=== PATIENT | male | born 1970 | race Caucasian/White ===

== ENCOUNTER 2016-12-23 17:27 | Inpatient (IN) | payer OTHER ==
[~2016-12-23] VITALS: Ht 172.7 cm; Wt 83.9 kg
--- NOTE | 2016-12-23 17:46 | NUR ---
PER MOM PT SEVERE ABD PAIN X 1 HR, PALE WHICH IS NOT NORMAL, SOME NAUSEA.
--- NOTE | 2016-12-23 17:53 | ED GI/GU/ABDOMINAL COMPLAINT ---
History of Present Illness General Chief Complaint: Abdominal Pain/Flank Pain Stated Complaint: ABD PAIN, X 1 HR Source: patient, family Exam Limitations: no limitations Vital Signs & Intake/Output Vital Signs & Intake/Output Vital Signs Date Time Temp Pulse Resp B/P Pulse O2 O2 Flow FiO2 Ox Delivery Rate 12/26 799 95 Nasal 2.0L Cannula 12/26 799 98.3 108 22 122/70 95 Nasal 2.0L Cannula 12/25 0442 94 Nasal 2.0L Cannula 12/25 000 95 Nasal 2.0L Cannula 12/25 000 97.0 112 22 114/75 95 Nasal 2.0L Cannula 12/24 2000 94 Nasal 2.0L Cannula 12/24 1600 95 Nasal 2.0L Cannula 12/24 1600 98.4 107 19 110/56 91 Room Air Room Air ED Intake and Output 12/25 0000 12/24 1200 Intake Total 2035 5500 Output Total 2945 3070 Balance -910 2430 Intake, IV 2035 5500 Output, 90 90 Drainage Output, 90 30 Gastric Drainage Output, Urine 2765 2950 Patient 185 lb Weight Allergies Coded Allergies: No Known Allergies (12/23/16) Reconcile Medications Valsartan/Hydrochlorothiazide (Valsartan-Hctz 160-25 MG Tab) 160 MG-25 MG TABLET 1 TAB PO DAILY HEART (Reported) Triage Note: PER MOM PT SEVERE ABD PAIN X 1 HR, PALE WHICH IS NOT NORMAL, SOME NAUSEA. Triage Nurses Notes Reviewed? 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 According to the patient he had just gone out for lunch with his . For the past 5 days he's been having some lower abdominal pain and pressure. He felt he was constipated and has been taking a lot of fibrotic home. No fever or chills. Has a nausea but no vomiting. No history of similar symptoms. According to the he was very pale when the event happened at home. No chest pain or shortness of breath. Past History Travel History Traveled to [place] past 21 day No Medical History Any Pertinent Medical History? see below for history Neurological: NONE EENT: NONE Cardiovascular: hypertension Respiratory: NONE Gastrointestinal: NONE Hepatic: NONE Renal: NONE Musculoskeletal: NONE Psychiatric: NONE Endocrine: NONE Tetanus Vaccine: Surgical History Surgical History: none Psychosocial History What is your primary language Senegalese Tobacco Use: Never used Family History Hx Contributory? No Review of Systems Review of Systems Constitutional: Reports: diaphoresis. Denies: chills, fever. EENTM: Reports: no symptoms. Respiratory: Denies: cough, short of breath. Cardiovascular: Denies: chest pain. GI: Reports: abdominal pain. Denies: nausea, vomiting. Genitourinary: Reports: no symptoms. Musculoskeletal: Reports: no symptoms. Skin: Reports: no symptoms. Neurological/Psychological: Reports: anxiety. Hematologic/Endocrine: Denies: bruising, bleeding, polyuria, polydipsia. Immunologic/Allergic: Denies: splenectomy. All Other Systems: Reviewed and Negative Physical Exam Physical Exam General Appearance: well developed/nourished, alert, awake, severe distress Head: atraumatic, normal appearance Eyes: Bilateral: PERRL, EOMI. 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 No Severe Sepsis Present: No Septic Shock Present: No Progress Differential Diagnosis: diverticulitis, pyelonephritis, SBO, AAA Plan of Care: Orders Procedure Date/time Status ICU LAB BUNDLE 12/26 0500 Active CBC WITHOUT DIFFERENTIAL 12/26 0500 Active OXYGEN SETUP (GEN) 12/25 UNK Complete Admit to inpatient 12/25 UNK Active OXYGEN SETUP CHG 12/24 UNK Complete OXYGEN 12/24 UNK Complete OXYGEN TRANSPORT 12/24 UNK Complete Current Medications Sig/Nhan Start time Last Medication Dose Stop Time Status Admin Morphine Sulfate 2 MG Q3P PRN 12/24 0645 AC (Morphine) Ondansetron HCl 4 MG Q6P PRN 12/24 0200 AC (Zofran) Laboratory Tests 12/25/16 0400: Anion Gap 9, Estimated GFR > 60, Glucose 151 H, Calcium 8.6, Phosphorus 2.0 L, Magnesium 2.1, Total Bilirubin 0.6, AST 28, ALT 37, Albumin 2.8 L, CBC w Diff MAN DIFF ORDERED, RBC 3.07 L, MCV 98.3 H, MCH 34.1 H, RDW 13.1, MPV 7.8, Gran % 85.7 H, Lymphocytes % 9.2 L, Monocytes % 4.9, Eosinophils % 0, Basophils % 0.2, Absolute Granulocytes 3.8, Segmented Neutrophils 63, Band Neutrophils 20 H , Absolute Lymphocytes 0.4 L, Lymphocytes 9 L, Monocytes 4, Absolute Monocytes 0.2, Absolute Eosinophils 0, Absolute Basophils 0, Metamyelocytes 4 H, Platelet Estimate ADEQUATE, Hypochromic-Microcytic 1+, Basophilic Stippling 1+, PUBS MCHC 34.7 PATIENT PRESENTS WITH ACUTE ABDOMEN. IV ACCESS, PAIN CONTROL, FLUIDS. CT CALLED FOR EMERGENT SCAN. PREOP LABS SENT. 6:33 PM NO RELIEF WITH MORPINE, DILAUDID ORDERED. BACK FROM CT RESULTS PENDING. PERFORATED SIGMOID DIVERTICULITIS ON CT. IV UNASYN ORDERED. SURGERY PAGED. 6:44 PM D/W SURGICAL PA COMFORT. DR HOFFMAN PAGED. PATIENT TO GO TO OR. (PANDA SAMPSON,KARLO) Diagnostic Imaging: Viewed by Me: CT Scan. Discussed w/RAD: CT Scan. Initial ED EKG: NSR Rhythm Strip: normal sinus rhythm Comments: PATIENT: DONNELL ROSEN PRESENT AGE: 46 PATIENT ACCOUNT NO: [id number] : 66 LOCATION: [facility] ORDERING PHYSICIAN: KARLO STONE MD SERVICE DATE: 12/23/16 EXAM TYPE: CAT - CT ABD & PELVIS W IV CONTRAST EXAMINATION: CT ABDOMEN AND PELVIS WITH CONTRAST CLINICAL INFORMATION: Sudden onset severe abdominal pain. Assess for perforation. COMPARISON: None. TECHNIQUE: Multidetector volumetric imaging was performed of the abdomen and pelvis before and after the IV administration of 94 mL of Optiray 320 intravenous contrast. Sagittal and coronal reformatted images were obtained on the technologist's workstation. DLP: 417 mGy-cm. FINDINGS: LUNG BASES: The visualized lung bases are unremarkable. LIVER, GALLBLADDER, AND BILIARY TREE: The liver is normal in size, shape, and attenuation. No focal hepatic lesion or biliary ductal dilatation is present. The gallbladder is unremarkable with no evidence of radiopaque gallstones, gallbladder wall thickening, or obvious pericholecystic inflammatory changes. PANCREAS: Unremarkable. SPLEEN: Unremarkable. ADRENAL GLANDS: Unremarkable. KIDNEYS AND URETERS: The kidneys are normal in size, shape, and attenuation. No hydronephrosis, hydroureter, or calculi seen. No perinephric stranding. BLADDER: Unremarkable. GASTROINTESTINAL TRACT: There is a moderate length segment of mural thickening centered on the sigmoid colon. There is extraluminal gas within the mesentery of the sigmoid colon with small volume of fluid. No discrete/drainable fluid collection. The gas is favored to arise from a perforated diverticulum of the sigmoid colon. No other areas of acute large or small bowel inflammation. There is fibrofatty proliferation within the cecum and ascending colon, suggesting prior inflammation. The appendix is unremarkable. ABDOMINAL WALL: Tiny fat-containing umbilical hernia. LYMPH NODES: Nonspecific subcentimeter retroperitoneal and intraperitoneal lymph nodes without bulky adenopathy. VASCULAR: Circumaortic left renal vein. Scattered atherosclerotic disease including coronary artery calcification. PELVIC VISCERA: Unremarkable. OSSEOUS STRUCTURES: No acute osseous abnormalities. Degenerative disc disease at L5-S1. There is a tiny lipoma along the inferior right latissimus musculature. IMPRESSION: 1. Evidence of sigmoid colon perforation with a moderate length segment of thick-walled, inflamed bowel. Local diverticula are demonstrated, and a perforated diverticulitis is considered most likely. No discrete/drainable fluid collection. 2. Scattered atherosclerotic disease including coronary artery calcification. This critical result was discussed with Dr. Stone at 6:35 PM on 12/23/2016 and it was ascertained that the content and urgency of the report was understood at the time of direct communication. DICTATED BY: ZANE GAMING MD DATE/TIME DICTATED:12/23/161830 ACCOUNTS RECEIVABLE COORDINATOR:NEIL DATE/TIME TRANSCRIBED:12/23/161830 CONFIDENTIAL, DO NOT COPY WITHOUT APPROPRIATE AUTHORIZATION. <Electronically signed in Other Vendor System> SIGNED BY: ZANE GAMING MD 12/23/16 1850 Departure Departure Time of Disposition: 1929 Disposition: STILL A PATIENT Condition: Guarded Clinical Impression Primary Impression: Perforation of sigmoid colon due to diverticulitis Secondary Impressions: MACKENZIE (acute kidney injury), Hyponatremia Referrals: MARZENA SAMPSON,ORALIA Kee (PCP/Family) Departure Forms: Customer Survey General Discharge Information OR/GI Note Spoke With: DALTON SAMPSON,CLAY N. ED Treatment Decision: DONNELL ROSEN requires urgent operative management or an emergent procedure that cannot be performed in the Emergency Room setting. Transport To: [facility] Critical Care Note Critical Care Note Critical Care Time: 30-74 min
--- NOTE | 2016-12-23 18:01 | NUR ---
PT TAKEN TO ROOM 4. PALE, HANDS COLD TO TOUCH. PT WRITHING, C/O DIFFUSE ABDOMINAL PAIN, GUARDS RLQ. PT DOESN'T ALLOW PALPATION TO ABDOMEN DUE TO PAIN. STATES HE HAS HAD ABDOMINAL "CRAMPING" FOR A FEW DAYS, WENT TO EAT LUNCH TODAY AND HAD SUDDEN ONSET OF PAIN AFTER EATING A CHICKEN SANDWICH. HAS FELT CONSTIPATED THROUGHOUT THE WEEK AND HAS BEEN TAKING FIBER PER . PT REPORTS NORMAL BM TODAY AND NORMAL URINARY PATTERN TODAY. DENIES HEMATURIA. +NAUSEA. IV EST BY RANDY ANDERSON. NORMAL SALINE INFUSING. MED WITH ZOFRAN AND MORPHINE PER DEC. DR MOSQUEDA AT THE BEDSIDE.
[2016-12-23 18:06] LABS: ABSOLUTE BASOPHIL COUNT 0 /CUMM (0.0-0.2); ABSOLUTE EOSINOPHIL COUNT 0.1 /CUMM (0.0-0.7); ABSOLUTE GRANULOCYTE CT 7.5 /CUMM (1.4-6.5); ABSOLUTE LYMPH COUNT 2.4 /CUMM (1.2-3.4); BASOPHIL % 0.4 % (0.0-2.0); EOSINOPHIL % 1.3 % (0-5); GRANULOCYTE % 67.8 % (42.2-75.2); MEAN CORPUSCULAR HGB 33.7 PG (27.0-31.0); MEAN CORPUSCULAR HGB CONC 34.6 G/DL (33.0-37.0); MEAN CORPUSCULAR VOLUME 97.4 FL (80.0-94.0); MEAN PLATELET VOLUME 7.8 FL (7.4-10.4); PLATELET COUNT 271 /CUMM (130-400); RBC DISTRIBUTION WIDTH 12.9 % (11.5-14.5); WHITE BLOOD CELL COUNT 11.1 /CUMM (4.8-10.8)
--- NOTE | 2016-12-23 18:10 | NUR ---
TAKEN TO CT SCAN VIA STRETCHER
[2016-12-23 18:16] LABS: PT 11.1 SEC (9.4-12.5); PTT 30 SEC (25-37)
--- NOTE | 2016-12-23 18:34 | NUR ---
PT STILL C/O 10/10 LOWER ABD PAIN. STATES PAIN IS SHARP IN NATURE. MEDICATED WITH 1MG IV DILAUDID PER ORDER AT THIS TIME. PT MOVING AROUND ON STRETCHER, APPEARS UNCOMFORTABLE.
--- NOTE | 2016-12-23 18:50 | CT SCAN REPORT ---
EXAMINATION: CT ABDOMEN AND PELVIS WITH CONTRAST CLINICAL INFORMATION: Sudden onset severe abdominal pain. Assess for perforation. COMPARISON: None. TECHNIQUE: Multidetector volumetric imaging was performed of the abdomen and pelvis before and after the IV administration of 94 mL of Optiray 320 intravenous contrast. Sagittal and coronal reformatted images were obtained on the technologist's workstation. DLP: 417 mGy-cm. FINDINGS: LUNG BASES: The visualized lung bases are unremarkable. LIVER, GALLBLADDER, AND BILIARY TREE: The liver is normal in size, shape, and attenuation. No focal hepatic lesion or biliary ductal dilatation is present. The gallbladder is unremarkable with no evidence of radiopaque gallstones, gallbladder wall thickening, or obvious pericholecystic inflammatory changes. PANCREAS: Unremarkable. SPLEEN: Unremarkable. ADRENAL GLANDS: Unremarkable. KIDNEYS AND URETERS: The kidneys are normal in size, shape, and attenuation. No hydronephrosis, hydroureter, or calculi seen. No perinephric stranding. BLADDER: Unremarkable. GASTROINTESTINAL TRACT: There is a moderate length segment of mural thickening centered on the sigmoid colon. There is extraluminal gas within the mesentery of the sigmoid colon with small volume of fluid. No discrete/drainable fluid collection. The gas is favored to arise from a perforated diverticulum of the sigmoid colon. No other areas of acute large or small bowel inflammation. There is fibrofatty proliferation within the cecum and ascending colon, suggesting prior inflammation. The appendix is unremarkable. ABDOMINAL WALL: Tiny fat-containing umbilical hernia. LYMPH NODES: Nonspecific subcentimeter retroperitoneal and intraperitoneal lymph nodes without bulky adenopathy. VASCULAR: Circumaortic left renal vein. Scattered atherosclerotic disease including coronary artery calcification. PELVIC VISCERA: Unremarkable. OSSEOUS STRUCTURES: No acute osseous abnormalities. Degenerative disc disease at L5-S1. There is a tiny lipoma along the inferior right latissimus musculature. IMPRESSION: 1. Evidence of sigmoid colon perforation with a moderate length segment of thick-walled, inflamed bowel. Local diverticula are demonstrated, and a perforated diverticulitis is considered most likely. No discrete/drainable fluid collection. 2. Scattered atherosclerotic disease including coronary artery calcification. This critical result was discussed with Dr. Stone at 6:35 PM on 12/23/2016 and it was ascertained that the content and urgency of the report was understood at the time of direct communication.
--- NOTE | 2016-12-23 18:52 | NUR ---
SURGERY AT BEDSIDE
--- NOTE | 2016-12-23 18:52 | NUR ---
SECOND IV PLACED. SECOND LITER NS INFUSING PER ORDER AT THIS TIME. IV UNASYN INFUSING AT THIS TIME.
[2016-12-23] MEDS ORDERED: VALSARTAN-HCTZ1 EAC2 PO (19:04)
--- NOTE | 2016-12-23 19:07 | NUR ---
PT PERFORMED PRE-OP SCRUB.
--- NOTE | 2016-12-23 19:23 | NUR ---
PT AWAITING OR AT THIS TIME.
--- NOTE | 2016-12-23 19:58 | History & Physical Pre-Op ---
See Addendum General Information and HPI History of Present Illness: CC: abdominal pain HPI:46-year-old otherwise healthy nondiabetic smoker, marijuana medications for blood pressure no family history of intestinal problems or cancer, in retrospect has had to push to have bowel movements intermittently since at least the summer , and recently started taking prunes especially for the past week or so he still went to work which requires heavy lifting felt a tiny bit better this morning when out to lunch came home had a large bowel movement and then severe constant lower abdominal pain unrelenting doesn't radiate to the back difficult to take a deep breath or move otherwise can't stand up straight no nausea no vomiting no fever no sweats otherwise no changes in weight or appetite axes gained a little bit of weight. No history of colonoscopy. I've reviewed the [facility]. No history of GERD, PUD, bleeding problems, heart disease or issues with anesthesia. Allergies/Medications Allergies: Coded Allergies: No Known Allergies (12/23/16) Home Med list Valsartan/Hydrochlorothiazide (Valsartan-Hctz 160-25 MG Tab) 160 MG-25 MG TABLET 1 TAB PO DAILY HEART (Reported) Past History Medical History Neurological: NONE EENT: NONE Cardiovascular: hypertension Respiratory: NONE Gastrointestinal: NONE Hepatic: NONE Renal: NONE Musculoskeletal: NONE Psychiatric: NONE Endocrine: NONE Tetanus Vaccine: Surgical History Pertinent Surgical History: none Review of Systems Review of Systems: Constitutional: No fever, sweats or weight loss ENMT: No sore throat Cardiovascular: No chest pain, palpitations or leg swelling Respiratory: No shortness of breath, cough, or sputum or dyspnea on exertion GI: No GERD or bleeding per rectum : No dysuria or hematuria Musculoskeletal: No new muscle weakness, bone or joint pain Skin / Breast: No jaundice, rashes or itching Psychiatric: No history of drug or alcohol abuse no depression or anxiety Hematologic / lymphatic system: No problems with excessive bleeding, bruising, or blood clots Exam & Diagnostic Data Last 24 Hrs of Vital Signs/I&O I reviewed Vital Signs Date Time Temp Pulse Resp B/P Pulse O2 O2 Flow FiO2 Ox Delivery Rate 12/23 1918 97.1 92 22 112/62 97 Room Air 12/23 1830 85 20 110/64 95 Room Air 12/23 1810 74 107/72 12/23 1804 98 Room Air 12/23 1750 113 28 108/68 96 Physical Exam: Constitutional: pleasant, no acute distress, conversant Eyes: sclera anicteric ENMT: ears and nose atraumatic, moist mucous membranes, good dentition, no lip lesions Neck: Supple, trachea is midline, no cervical or supraclavicular adenopathy and no palpable thyromegaly Cardiovascular: S1, S2, no murmurs, no peripheral edema Respiratory: clear to auscultation with normal respiratory effort and no intercostal retractions GI: abdomen abdomen is rigid with rebound, nondistended, because of the discomfort cannot really appreciate hepatosplenomegaly, small umbilical hernia. Extremities / lymphatics: symmetrically warm, free range of motion no peripheral edema, no cervical, supraclavicular, axillary, or inguinal adenopathy Musculoskeletal: Normal gait and station, no digital cyanosis, good muscle strength and tone no atrophy, motor grossly 5 out of 5 throughout Skin: no jaundice, no rashes warm, nondiaphoretic, no areas of erythema or induration Psychiatric: mood and affect are appropriate and alert and oriented to person place and time Last 24 Hrs of Labs/Dimitri: Laboratory Tests 12/23/16 1758: Anion Gap 16, Estimated GFR 29 L, BUN/Creatinine Ratio 22.5, Glucose 165 H, Calcium 9.3, Total Bilirubin 0.9, AST 88 H, ALT 66, Alkaline Phosphatase 99, Total Protein 7.4, Albumin 4.2, Globulin 3.2, Albumin/Globulin Ratio 1.3, Amylase 70, Lipase 207, PT 11.1, INR 1.06, APTT 30, CBC w Diff NO MAN DIFF REQ, RBC 3.80 L, MCV 97.4 H, MCH 33.7 H, RDW 12.9, MPV 7.8, Gran % 67.8, Lymphocytes % 21.7, Monocytes % 8.8, Eosinophils % 1.3, Basophils % 0.4, Absolute Granulocytes 7.5 H, Absolute Lymphocytes 2.4, Absolute Monocytes 1.0 H, Absolute Eosinophils 0.1, Absolute Basophils 0, PUBS MCHC 34.6 Assessment/Plan Assessment/Plan: Studies I reviewed today's CT on PACS myself and looks like there is extraluminal stool under the curve of the sigmoid colon Impression acute abdomen fecal peritonitis patient needs emergency surgery Rodrigues's, abdominal washout, discussed temporary end colostomy discussed potential life-threatening sepsis peritonitis multiorgan failure but it's fortunate that he is young and otherwise relatively healthy and came as soon as the severe pain started though it appears that diverticulitis has been smoldering for about a week. Risks include bleeding infection injury to surrounding structures such as bowel and blood vessels and ureter, but also shows that his dehydrated on his lab work on his way to the OR he is getting IV antibiotics and some IV fluid crystalloid boluses. As Ranked By This Provider Problem List: 1. Acute abdomen 2. Fecal peritonitis 3. Perforation of sigmoid colon due to diverticulitis
--- NOTE | 2016-12-24 04:51 | NUR ---
PT RECEIVED FROM OR A/O X3 MORALES TO COMMAND NASAL O2 WEANED OFF. ABD DRSG WITH SMALL AMT DRAINAGE COLOSTOMY WITH SMALL AMT SS DRAINAGE, ALIA WITH MOD AMT SS DRAINAGE. mEDICATED WITH DILAUDID ORDERED W/O RELIEF OF PAIN MS GIVEN WITH ADEQATE RELIEF. NGT TO LWS DRAINING SMALL AMT YELLOW FLUID, MENDOZA DRAINING QS. AT BEDSIDE DEMONSTRATES USE OF NRSG CALL LIGHT.
[2016-12-24 06:31] LABS: ABSOLUTE BASOPHIL COUNT 0 /CUMM (0.0-0.2); ABSOLUTE EOSINOPHIL COUNT 0 /CUMM (0.0-0.7); ABSOLUTE GRANULOCYTE CT 3.7 /CUMM (1.4-6.5); ABSOLUTE LYMPH COUNT 0.2 /CUMM (1.2-3.4); ABSOLUTE MONOCYTE COUNT 0.3 /CUMM (0.10-0.60); BASOPHIL % 0 % (0.0-2.0); EOSINOPHIL % 0 % (0-5); GRANULOCYTE % 88.1 % (42.2-75.2); MEAN CORPUSCULAR HGB CONC 34.9 G/DL (33.0-37.0); MEAN CORPUSCULAR VOLUME 97.4 FL (80.0-94.0); MEAN PLATELET VOLUME 8.1 FL (7.4-10.4); PLATELET COUNT 164 /CUMM (130-400); RED BLOOD CELL CT 3.28 /CUMM (4.70-6.10)
--- NOTE | 2016-12-24 06:42 | PN- General Surgery ---
See Addendum Subjective Subjective: Post op check Awake, alert Complaining of surgical pain - intolerable at present No nausea, no other complaints Objective Vital Signs and I&Os Vital Signs Date Time Temp Pulse Resp B/P Pulse O2 O2 Flow FiO2 Ox Delivery Rate 12/24 0342 97 Nasal 2.0L Cannula 12/23 1918 97.1 92 22 112/62 97 Room Air 12/23 1830 85 20 110/64 95 Room Air 12/23 1810 74 107/72 12/23 1804 98 Room Air 12/23 1750 113 28 108/68 96 Intake & Output 12/24 0800 12/24 0000 12/23 1600 12/23 0800 12/23 0000 12/22 1600 Intake Total 1000 Output Total Balance 1000 Intake, IV 1000 Patient 185 lb 185 lb Weight Physical Exam: bp stable systolic 90's, HR 105 - sinus, Tmax post op 99 RR 20, sats good General: alert and oriented times three Chest: clear anteriorly bilaterally, RRR Abd: soft, nondistended, no bowel sounds appreciated Ostomy: pink, looks good, no air or liquid in bag Ext: warm, no edema Wound: dressed, dry ALIA: 90cc serosang since OR Urine output good NGT:30cc Current Medications: Current Medications Sig/Nhan Start time Last Medication Dose Route Stop Time Status Admin Ampicillin Sodium/ 3,000 MG Q6H 12/24 0530 12/24 Sulbactam Sodium IV 0525 Sodium Chloride 100 ML Ampicillin Sodium/ 3,000 MG Q6H 12/24 020 DC Sulbactam Sodium IV Sodium Chloride 100 ML Ampicillin Sodium/ 0 .STK-MED ONE 12/23 184 DC Sulbactam Sodium .ROUTE Ampicillin Sodium/ 3,000 MG ONCE ONE 12/23 1845 DC 12/23 Sulbactam Sodium IV 12/23 1914 1851 Sodium Chloride 100 ML Dextrose/Sodium 1,000 ML Q8H 12/24 0200 12/24 Chloride IV 0527 Heparin Sodium 5,000 UNIT Q8 12/24 0151 12/24 (Porcine) SC 0620 Hydromorphone HCl 2 MG ONCE PRN 12/24 0200 12/24 IV 0140 Hydromorphone HCl 0 .STK-MED ONE 12/23 183 DC .ROUTE Hydromorphone HCl 1 MG ONCE ONE 12/23 1830 DC 12/23 IV 12/23 1831 1834 Influenza Virus 0.5 ML ONCE ONE 12/24 0415 DC Vaccine IM 12/24 0416 Morphine Sulfate 2 MG Q4P PRN 12/24 0200 AC IV Morphine Sulfate 4 MG Q4 HRS NEEDED PRN 12/24 0200 AC 12/24 IV 0314 Morphine Sulfate 6 MG ONCE ONE 12/23 1800 DC 12/23 IV 12/23 1801 1800 Morphine Sulfate 0 .STK-MED ONE 12/23 1758 DC .ROUTE Ondansetron HCl 4 MG Q6P PRN 12/24 0200 AC IV Ondansetron HCl 4 MG ONCE ONE 12/23 1800 DC 12/23 IV 12/23 1801 1800 Ondansetron HCl 0 .STK-MED ONE 12/23 1755 DC .ROUTE Pantoprazole Sodium 40 MG DAILY 12/24 1000 AC IV Petrolatum 1 UNIT TID 12/24 0200 AC OPH Sodium Chloride 1,000 ML BOLUS ONE 12/23 1845 DC 12/23 IV 12/23 1944 1851 Sodium Chloride 1,000 ML BOLUS ONE 12/23 1800 DC 12/23 IV 12/23 1859 1800 Assessment/Plan Assessment/Plan 46 yo male s/p Hartmanns for perf diverticulitis NPO/IVF fu labs Pain management - change morphine scale to q3h at this time then reassess later await bowel function unasyn for peritonitis hep sc for dvt ppx Core Measures/Miscellaneous Hol[place] Catheter Date In: 12/24/16 Still Needed? Yes (strict O/O) Venous Thromboembolism VTE Risk Factors: No Risk Factors VTE Contraindications: No Contraindications VTE Diagnosis: No Beta Jennifer Is Beta Jennifer a Home Med? No Antibiotics Is Patient on Antibiotics? Yes If Yes: infection
[2016-12-24 06:46] LABS: HEMATOCRIT 31.9 % (42-52); WHITE BLOOD CELL COUNT 4.2 /CUMM (4.8-10.8)
[2016-12-24 08:00] VITALS: BP 108/64
--- NOTE | 2016-12-24 08:00 | NUR ---
REC'D THE PT SLEEPING IN BED, EASILY AROUSABLE. C/O INTERMITTENT PAIN TO THE L SIDE OF THE ABD(REC'D MORPHINE 4MG IV AT 0630, WHICH PROVIDED RELIEF) PER THE PT THE PAIN IS INTERMITTENT-WHEN HE DOES HAVE IT, IT IS 10/10, ALMOST CRAMPLIKE. A&OX3, MORALES ALBEIT GINGERLY R/T PAIN. PT IS IN A ST WITHOUT ECTOPY PER THE BLADE WORKER. NO EDEMA NOTED. DERICK BS ARE CLEAR WITH AN O2 SAT OF 9#5 WHEN SLEEPING AND 95% WHEN AWAKE ON ROOM AIR. ABD IS DISTENDED BUT SOFT-NO BOWEL SOUNDS PRESENT. NGT IN L NARE TO LWS. DRAINING SMALL AMOUNTS OF LOPEZ ALMOST PURULENT LOOKING FLUID. MIDLINE ABD DRESSING WITH OLD DRIED BLOODY DRAINAGE-HAS NOT GONE THRU THE TOP LAYER OF THE DRESSING. LSIDED COLOSTOMY-STOMA IS PINK AND THERE IS SCANT SEROSANGUINOUS DRAINAGE. R SIDED ALIA WITH SEROSANGUINOUS FLUID. MENDOZA IN PLACE DRAINING LG AMOUNTS OF CLEAR YELLOW URINE. RECEIVING D5NS AT 125ML/HR VIA A #20 TO THE LAC.
--- NOTE | 2016-12-24 14:48 | NUR ---
PT PROVIDED WITH INCENTIVE SPIROMETER AND INSTRUCTED ON PROPER USE. PT DEMONSTRATED CAN USE APPROPRIATELY. INSTRUCTED TO USE 10X/HR.
[2016-12-24 16:00] VITALS: BP 110/56
--- NOTE | 2016-12-24 16:30 | NUR ---
DESPITE ENCOURAGING THE PT TO USE THE INCENTIVE SPIROMETER WELL TAKING DEEP BREATHS THE O2 SAT HAD DECREASED TO 89% WHILE THE PT WAS SLEEPING AND ONLY 91-92% WHILE AWAKE. 2LNC PLACED ON THE PT AT 1605 AND THE O2 SAT IS CURRENTLY 95-96%. WILL CONTINUE TO MONITOR.
--- NOTE | 2016-12-24 17:12 | NUR ---
PT'S O2 SAT HAS INCREASED TO 94-97% ON THE 2LNC.
--- NOTE | 2016-12-24 20:42 | Admission Core Measures ---
Admission Lab Results I reviewed the following labs: Laboratory Tests 12/24 12/24 0600 0500 Chemistry Sodium (137 - 145 mmol/L) 133 L Potassium (3.5 - 5.1 mmol/L) 4.0 Chloride (98 - 107 mmol/L) 100 Carbon Dioxide (22 - 30 mmol/L) 21 L Anion Gap (5 - 16) 12 BUN (9 - 20 mg/dL) 35 H Creatinine (0.7 - 1.2 mg/dL) 1.7 H Estimated GFR (>60 ml/min) 43 L BUN/Creatinine Ratio (7 - 25 %) 20.6 Phosphorus (2.5 - 4.5 mg/dL) Cancelled 3.2 Magnesium (1.6 - 2.3 mg/dL) Cancelled 1.9 Hematology CBC w Diff MAN DIFF ORDERED WBC (4.8 - 10.8 /CUMM) 4.2 L RBC (4.70 - 6.10 /CUMM) 3.28 L Hgb (14.0 - 18.0 G/DL) 11.1 L Hct (42 - 52 %) 31.9 L MCV (80.0 - 94.0 FL) 97.4 H MCH (27.0 - 31.0 PG) 34.0 H RDW (11.5 - 14.5 %) 13.0 Plt Count (130 - 400 /CUMM) 164 MPV (7.4 - 10.4 FL) 8.1 Gran % (42.2 - 75.2 %) 88.1 H Lymphocytes % (20.5 - 51.1 %) 4.4 L Monocytes % (1.7 - 9.3 %) 7.5 Eosinophils % (0 - 5 %) 0 Basophils % (0.0 - 2.0 %) 0 L Absolute Granulocytes (1.4 - 6.5 /CUMM) 3.7 Segmented Neutrophils (42.2 - 75.2 %) 45 Band Neutrophils (0.0 - 5.0 %) 40 H Absolute Lymphocytes (1.2 - 3.4 /CUMM) 0.2 L Lymphocytes (20.5 - 51.1 %) 13 L Monocytes (1.7 - 9.3 %) 2 Absolute Monocytes (0.10 - 0.60 /CUMM) 0.3 Absolute Eosinophils (0.0 - 0.7 /CUMM) 0 Absolute Basophils (0.0 - 0.2 /CUMM) 0 Platelet Estimate (ADEQUATE) ADEQUATE Normocytic RBCs VERIFIED Normochromic RBCs VERIFIED PUBS MCHC (33.0 - 37.0 G/DL) 34.9 12/23 2053 Chemistry Lactic Acid Cancelled Admission Meds I reviewed the following Meds: Current Medications Sig/Nhan Start time Last Medication Dose Stop Time Status Admin Morphine Sulfate 2 MG Q3P PRN 12/24 0645 AC (Morphine) Ondansetron HCl 4 MG Q6P PRN 12/24 0200 AC (Zofran) Acute Coronary Syndrome Inclusion Criteria ACS Diagnosis No Inpatient Core Measures LDL Reminder: If No, please order W/I first 24hr of stay Congestive Heart Failure Inclusion Criteria CHF Diagnosis No Cerebrovascular accident Inclusion Criteria CVA/TIA Diagnosis No Inpatient Core Measures Bedside Swallow Eval Reminder: If BSE failed, place ST order Antithrombotic Reminder: Order Antithrombotic Medication by end of day 2 Antithrombotic Reminder: Document Reason Antithrombotic Not ordered by end of day 2 AFIB/Flutter Reminder: If Present, add to problem list AFIB/Flutter Reminder: Order Anticoag Medication for pts with AFIB/Flutter Atherosclerosis Reminder: If Present, add to problem list LDL Reminder: If No, please order W/I first 24hr of stay PT Order Reminder: If No, please order Venous thromboembolism Inpatient Core Measures VTE Risk Factors: Age > 40, [facility] prophylaxis d/t No contraindications No VTE Pharm Prophylaxis d/t No contraindications Inclusion Criteria - Per Current guidelines, there needs to be overlap - treatment for the first 5 days of Warfarin therapy. - Parenteral Anticoagulation (IV or SC) needs to be - given along with Warfarin therapy. VTE Diagnosis No VTE Type NONE VTE Confirmed by (Test) NONE Problem List As ranked by this Provider includes Assessment & Plan 1. Perforation of sigmoid colon due to diverticulitis 2. Fecal peritonitis HOME MEDS Home Med List Valsartan/Hydrochlorothiazide (Valsartan-Hctz 160-25 MG Tab) 160 MG-25 MG TABLET 1 TAB PO DAILY HEART (Reported)
[2016-12-25 00:07] VITALS: BP 114/75
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
[2016-12-25 04:32] LABS: ABSOLUTE BASOPHIL COUNT 0 /CUMM (0.0-0.2); ABSOLUTE EOSINOPHIL COUNT 0 /CUMM (0.0-0.7); ABSOLUTE GRANULOCYTE CT 3.8 /CUMM (1.4-6.5); ABSOLUTE LYMPH COUNT 0.4 /CUMM (1.2-3.4); ABSOLUTE MONOCYTE COUNT 0.2 /CUMM (0.10-0.60); BASOPHIL % 0.2 % (0.0-2.0); EOSINOPHIL % 0 % (0-5); GRANULOCYTE % 85.7 % (42.2-75.2); HEMATOCRIT 30.1 % (42-52); MEAN CORPUSCULAR HGB 34.1 PG (27.0-31.0); MEAN CORPUSCULAR HGB CONC 34.7 G/DL (33.0-37.0); MEAN CORPUSCULAR VOLUME 98.3 FL (80.0-94.0); MEAN PLATELET VOLUME 7.8 FL (7.4-10.4); PLATELET COUNT 142 /CUMM (130-400); RBC DISTRIBUTION WIDTH 13.1 % (11.5-14.5); RED BLOOD CELL CT 3.07 /CUMM (4.70-6.10); WHITE BLOOD CELL COUNT 4.5 /CUMM (4.8-10.8)
--- NOTE | 2016-12-25 06:02 | PN- General Surgery ---
See Addendum Subjective Subjective: Awake, alert No complaints overnight Pain well controlled, no nausea, moving around in bed, feels "growling" in the stomach Objective Vital Signs and I&Os Vital Signs Date Time Temp Pulse Resp B/P Pulse O2 O2 Flow FiO2 Ox Delivery Rate 12/25 0442 94 Nasal 2.0L Cannula 12/25 6 95 Nasal 2.0L Cannula 12/25 6 97.0 112 22 114/75 95 Nasal 2.0L Cannula 12/24 2000 94 Nasal 2.0L Cannula 12/24 1600 95 Nasal 2.0L Cannula 12/24 1600 98.4 107 19 110/56 91 Room Air Room Air 12/24 1200 94 Room Air Room Air 12/24 0800 95 Room Air Room Air 12/24 0800 100.2 107 18 108/64 95 Room Air Room Air Intake & Output 12/25 0800 12/25 0000 12/24 1600 12/24 0800 12/24 0000 12/23 1600 Intake Total 7742 607 7096 1000 Output Total 1415 1530 3070 Balance -295 -615 2430 1000 Intake, IV 5617 889 9452 1000 Output, 30 60 90 Drainage Output, 20 70 30 Gastric Drainage Output, Urine 1365 1400 2950 Patient 185 lb 185 lb Weight Physical Exam: afebrile, vss - sinus tachy to 118 urine output good - lemos ALIA 30cc overngiht serosang NGT: 50cc overnight General: alert and oriented times three Chest: clear anteriorly bilaterally, RRR Abd; softly distended, good bs Ostomy: looks good, pink, small amount of liquid serosang in bag Wound: dressed, dry Ext: warm, no edema Back: there is an area at the L flank of redness which is also tender, no fluctuance Current Medications: Current Medications Sig/Nhan Start time Last Medication Dose Route Stop Time Status Admin Ampicillin Sodium/ 3,000 MG Q6H 12/24 0530 DC 12/24 Sulbactam Sodium IV 1120 Sodium Chloride 100 ML Ceftriaxone Sodium 2,000 MG DAILY@1500 / 1500 AC 12/24 IV 1537 Dextrose/Sodium 1,000 ML Q8H 12/24 0200 AC 12/25 Chloride IV 0226 Heparin Sodium 5,000 UNIT Q8 12/24 0151 AC 12/25 (Porcine) SC 0526 Hydromorphone HCl 2 MG ONCE PRN 12/24 0200 AC 12/24 IV 0140 Metronidazole 500 MG IQ8 12/24 1600 AC 12/24 N/A 1 UNIT IV 2321 Morphine Sulfate 2 MG Q3P PRN 12/24 0645 AC IV Morphine Sulfate 4 MG Q3P PRN 12/24 0645 AC 12/25 IV 0527 Morphine Sulfate 2 MG Q4P PRN 12/24 0200 DC IV Morphine Sulfate 4 MG Q4 HRS NEEDED PRN 12/24 0200 DC 12/24 IV 0314 Ondansetron HCl 4 MG Q6P PRN 12/24 0200 AC IV Pantoprazole Sodium 40 MG DAILY 12/24 1000 AC 12/24 IV 1004 Petrolatum 1 UNIT TID 12/24 0200 AC 12/24 OPH 1553 Assessment/Plan Assessment/Plan 46 yo male s/p Hartmans for perf diverticuae, pod 1 await bowel function fu labs likely transfer to floor continue ivf/lemos - may dc lemos at transfer rocephin/flagyl hep sc for dvt ppx watch flank area redness (pt feels it is related to heavy lifting/back soreness which is common for himi) Core Measures/Miscellaneous Lemos Catheter Date In: 12/24/16 Venous Thromboembolism VTE Risk Factors: No Risk Factors VTE Contraindications: No Contraindications VTE Diagnosis: No VTE Type: NONE VTE Confirmed by (Test): NONE Beta Jennifer Is Beta Jennifer a Home Med? No Antibiotics Is Patient on Antibiotics? Yes If Yes: infection
[2016-12-25 08:00] VITALS: BP 122/70
--- NOTE | 2016-12-25 13:46 | Cons- Infect Disease ---
General Information and HPI Consulting Request Date of Consult: 12/25/16 Requested By: DALTON SAMPSON,CLAY Montalvo Reason for Consult: Perforated diverticulitis Source of Information: patient, family History of Present Illness: This is a 46-year-old man with a history of hypertension admitted on December 23 with a one week history of left lower quadrant pain and constipation associated with nausea but with no fevers or chills. On admission he was afebrile. Laboratory data revealed a white blood cell count of 11,000, BUN/creatinine 54 and 2.4, sodium 129, potassium 3.3, AST 88. CT of the abdomen and pelvis with IV contrast revealed extraluminal gas within the mesentery of the sigmoid colon secondary to a perforated diverticulum. He was begun on Unasyn and taken to the OR for a Rodrigues's procedure. On December 24 he had a low-grade fever of 100 with CBC revealing a white blood cell count of 4000 with 40 bands, and he was changed to Ceftriaxone and Flagyl. He has remained afebrile since then. He feels improved today but does note discomfort in the left lower abdomen. . Allergies/Medications Allergies: Coded Allergies: No Known Allergies (12/23/16) Home Med List: Valsartan/Hydrochlorothiazide (Valsartan-Hctz 160-25 MG Tab) 160 MG-25 MG TABLET 1 TAB PO DAILY HEART (Reported) Past History Travel History Traveled to [place] past 21 day No Medical History Blood Transfusion Hx: No Neurological: NONE EENT: NONE Cardiovascular: hypertension Respiratory: NONE Gastrointestinal: NONE Hepatic: NONE Renal: NONE Musculoskeletal: NONE Psychiatric: NONE Endocrine: NONE History of MRSA: No History of VRE: No History of CDIFF: No Isolation History: Standard Influenza Vaccine: 12/24/16 Tetanus Vaccine: Surgical History Surgical History: right knee medial meniscus surgery Psychosocial History Where Do You Live? Home Smoking Status: Never Smoked Review of Systems Review of Systems All Other Systems: Reviewed and Negative Exam & Diagnostic Data Last 24 Hrs of Vital Signs/I&O Vital Signs Date Time Temp Pulse Resp B/P Pulse O2 O2 Flow FiO2 Ox Delivery Rate 12/26 799 95 Nasal 2.0L Cannula 12/26 799 98.3 108 22 122/70 95 Nasal 2.0L Cannula 12/25 0442 94 Nasal 2.0L Cannula 12/25 0007 95 Nasal 2.0L Cannula 12/25 0007 97.0 112 22 114/75 95 Nasal 2.0L Cannula 12/24 2000 94 Nasal 2.0L Cannula 12/24 1600 95 Nasal 2.0L Cannula 12/25 1599 98.4 107 19 110/56 91 Room Air Room Air Intake & Output 12/25 1600 12/25 0800 12/25 0000 Intake Total 1000 1120 Output Total 830 1415 Balance 170 -295 Intake, IV 1000 1120 Output, 30 30 Drainage Output, 50 20 Gastric Drainage Output, Urine 750 1365 Patient 185 lb Weight Physical Exam Other Physical Findings: He is awake and alert in no acute distress. MAXIMUM TEMPERATURE 100.2. HEENT exam NG tube in place. Neck is supple with no adenopathy. Lungs scattered rhonchi. Heart regular rhythm with no murmur. Abdomen is soft, tender on palpation of the abdomen, with no bowel sounds appreciated; colostomy with bloody drainage. Back left flank erythema and induration, nontender to palpation. Extremities no cyanosis, clubbing or edema. Neuro is without focality. Holbrook catheter is in place. Last 24 Hours of Lab Results: Laboratory Tests 12/25 0400 Chemistry Sodium (137 - 145 mmol/L) 136 L Potassium (3.5 - 5.1 mmol/L) 3.6 Chloride (98 - 107 mmol/L) 101 Carbon Dioxide (22 - 30 mmol/L) 26 Anion Gap (5 - 16) 9 BUN (9 - 20 mg/dL) 15 Creatinine (0.7 - 1.2 mg/dL) 1.1 Estimated GFR (>60 ml/min) > 60 Glucose (65 - 99 mg/dL) 151 H Calcium (8.4 - 10.2 mg/dL) 8.6 Phosphorus (2.5 - 4.5 mg/dL) 2.0 L Magnesium (1.6 - 2.3 mg/dL) 2.1 Total Bilirubin (0.2 - 1.3 mg/dL) 0.6 AST (17 - 59 U/L) 28 ALT (21 - 72 U/L) 37 Albumin (3.5 - 5.0 g/dL) 2.8 L Hematology CBC w Diff MAN DIFF ORDERED WBC (4.8 - 10.8 /CUMM) 4.5 L RBC (4.70 - 6.10 /CUMM) 3.07 L Hgb (14.0 - 18.0 G/DL) 10.4 L Hct (42 - 52 %) 30.1 L MCV (80.0 - 94.0 FL) 98.3 H MCH (27.0 - 31.0 PG) 34.1 H RDW (11.5 - 14.5 %) 13.1 Plt Count (130 - 400 /CUMM) 142 MPV (7.4 - 10.4 FL) 7.8 Gran % (42.2 - 75.2 %) 85.7 H Lymphocytes % (20.5 - 51.1 %) 9.2 L Monocytes % (1.7 - 9.3 %) 4.9 Eosinophils % (0 - 5 %) 0 Basophils % (0.0 - 2.0 %) 0.2 Absolute Granulocytes (1.4 - 6.5 /CUMM) 3.8 Segmented Neutrophils (42.2 - 75.2 %) 63 Band Neutrophils (0.0 - 5.0 %) 20 H Absolute Lymphocytes (1.2 - 3.4 /CUMM) 0.4 L Lymphocytes (20.5 - 51.1 %) 9 L Monocytes (1.7 - 9.3 %) 4 Absolute Monocytes (0.10 - 0.60 /CUMM) 0.2 Absolute Eosinophils (0.0 - 0.7 /CUMM) 0 Absolute Basophils (0.0 - 0.2 /CUMM) 0 Metamyelocytes (0.0 - 1.0 %) 4 H Platelet Estimate (ADEQUATE) ADEQUATE Hypochromic-Microcytic 1+ Basophilic Stippling 1+ PUBS MCHC (33.0 - 37.0 G/DL) 34.7 Last 24 Hours of Dimitri Results: OR culture December 23 labeled pelvic fluid positive for Escherichia coli resistant to Ampicillin and Unasyn, alpha strep, yeast and possible anaerobes Urine culture December 23 negative Diagnostic Data Recent Imaging Findings: CT of the abdomen and pelvis with IV contrast revealed extraluminal gas within the mesentery of the sigmoid colon secondary to a perforated diverticulum. Assessment/Plan Assessment/Plan Impression: This is a 46-year-old man with no significant past medical history admitted on December 23 with a one week history of abdominal pain and constipation, found on CT scan to have a perforated diverticulitis, now 2 days status post Rodrigues's procedure, with the OR culture positive for multiple organisms including Escherichia coli, alpha strep, yeast and possibly anaerobes. The significance of the yeast is unclear, particularly as it is isolated along with other organisms and, therefore, its pathogenicity is unclear; nevertheless, particularly if it is Evelyn albicans, it should be susceptible to Fluconazole, which is typically well tolerated. The left flank inflammation is of some concern as it likely reflects infection or inflammation related to his recent perforation and this will need to be followed closely. Suggestion: 1. Follow left flank exam closely 2. Await ID of the candidal isolate and final OR culture 3. Remove Holbrook catheter 4. Begin Fluconazole 400 mg IV every 24 hours 5. Decrease Ceftriaxone to 1 g IV every 24 hours 6. Continue Flagyl Consult Acknowledgment - Thank you for your consult request.
[2016-12-25 16:00] VITALS: BP 112/70
[2016-12-26] VITALS: BP 120/70
--- NOTE | 2016-12-26 00:42 | NUR ---
PT ALERT AND ORIENTED, COMFORTABLE AT THIS TIME. SATURATION 96% ON 2L O2, LUNGS SOUND CLEAR. ,ANUAL BP 120/70, NSR 80'S. ABDOMEN SOFT. NGT IN PLACE TO LEFT NARE; TO LOW WALL SUCTION. COLOSTOMY TO LEFT SIDE OF ABDOMEN, SEROUS DRAINAGE NOTED. ALIA X [address] WE[address] FLAGYL CONT. MENDOZA IN PLACE, ADEQUATE UO NOTED. NPO MAINTAINED.
[2016-12-26 05:13] LABS: ABSOLUTE BASOPHIL COUNT 0 /CUMM (0.0-0.2); ABSOLUTE EOSINOPHIL COUNT 0 /CUMM (0.0-0.7); ABSOLUTE GRANULOCYTE CT 5.2 /CUMM (1.4-6.5); ABSOLUTE LYMPH COUNT 0.7 /CUMM (1.2-3.4); ABSOLUTE MONOCYTE COUNT 0.2 /CUMM (0.10-0.60); BASOPHIL % 0.2 % (0.0-2.0); EOSINOPHIL % 0.4 % (0-5); GRANULOCYTE % 85.1 % (42.2-75.2); HEMATOCRIT 29.5 % (42-52); MEAN CORPUSCULAR HGB 34.8 PG (27.0-31.0); MEAN CORPUSCULAR HGB CONC 35.5 G/DL (33.0-37.0); MEAN CORPUSCULAR VOLUME 97.9 FL (80.0-94.0); MEAN PLATELET VOLUME 8.9 FL (7.4-10.4); PLATELET COUNT 155 /CUMM (130-400); RED BLOOD CELL CT 3.01 /CUMM (4.70-6.10); WHITE BLOOD CELL COUNT 6.1 /CUMM (4.8-10.8)
--- NOTE | 2016-12-26 07:08 | PN- General Surgery ---
See Addendum Subjective Subjective: NAEO. Patient without new c/o. Continues to have incisional pain which is controlled with pain meds. Denies n/v. No gas or stool in ostomy bag. Patient was OOB to chair yesterday. Denies CP/SOB. Objective Vital Signs and I&Os Vital Signs Date Time Temp Pulse Resp B/P Pulse O2 O2 Flow FiO2 Ox Delivery Rate 12/26 0400 96 Nasal 2.0L Cannula 12/26 0000 96 Nasal 2.0L Cannula 12/26 0000 96.4 89 29 120/70 96 Nasal 2.0L Cannula 12/25 2000 96 Nasal 2.0L Cannula 12/25 1600 99.7 107 24 112/70 92 Room Air 12/25 0800 95 Nasal 2.0L Cannula 12/25 0800 98.3 108 22 122/70 95 Nasal 2.0L Cannula Intake & Output 12/26 0800 12/26 0000 12/25 1600 12/25 0800 12/25 0000 12/24 1600 Intake Total 975 365 2875 1000 1120 915 Output Total 430 345 379 815 5816 1530 Balance 470 605 590 170 -295 -615 Intake, IV 150 938 7369 1000 1120 915 Intake, Oral 0 Intake, Other 0 Output, 10 20 20 30 30 60 Drainage Output, 150 300 50 20 70 Gastric Drainage Output, Stool 10 5 10 Output, Urine 260 320 586 841 6464 1400 Patient 185 lb Weight Physical Exam: General: NAD, comfortable, A&Ox3 Chest: CTAB, no wheezes, no rales. Heart S1S2 normal. Abdomen: mild firmness, +distended. Appropriately tender around incisions. Hypoactive bowel sounds. Stoma pink and viable with ostomy appliance in place without contents or air in bag. ALIA drain x1 in place with serosanguineous drainage. NG tube with greenish brown output. Ext: No calve swelling/TTP, neurovascularly intact bilateral lower extremities Current Medications: Current Medications Sig/Nhan Start time Last Medication Dose Route Stop Time Status Admin Ceftriaxone Sodium 1,000 MG DAILY@1500 12/26 1500 AC IV Ceftriaxone Sodium 2,000 MG DAILY@1500 / 1500 DC 12/25 IV 1354 Dextrose/Sodium 1,000 ML Q8H 12/24 0200 DC 12/26 Chloride IV 0139 Fluconazole 400 MG Q24H 12/25 1800 AC 12/25 Sodium Chloride 200 ML IV 1859 Heparin Sodium 5,000 UNIT Q8 12/24 0151 AC 12/26 (Porcine) SC 0554 Hydromorphone HCl 2 MG ONCE PRN 12/24 0200 AC 12/24 IV 0140 Metronidazole 500 MG IQ8 12/24 1600 AC 12/25 N/A 1 UNIT IV 2331 Morphine Sulfate 2 MG Q3P PRN 12/24 0645 AC IV Morphine Sulfate 4 MG Q3P PRN 12/24 0645 AC 12/26 IV 0440 Ondansetron HCl 4 MG Q6P PRN 12/24 0200 AC IV Pantoprazole Sodium 40 MG DAILY 12/24 1000 AC 12/25 IV 0810 Petrolatum 1 UNIT TID 12/24 0200 AC 12/25 OPH 1000 Potassium Chloride 20 MEQ Q10H 12/26 0700 AC Dextrose/Sodium 1,000 ML IV Chloride Potassium Phosphate 15 mMol ONE ONE 12/25 0700 DC 12/25 Dextrose/Water 250 ML IV 12/25 1103 0835 Results Last 48 Hours of Labs: Laboratory Tests 12/26 12/26 0530 0434 Chemistry Sodium (137 - 145 mmol/L) 138 Potassium (3.5 - 5.1 mmol/L) 3.4 L Chloride (98 - 107 mmol/L) 99 Carbon Dioxide (22 - 30 mmol/L) 28 Anion Gap (5 - 16) 10 BUN (9 - 20 mg/dL) 14 Creatinine (0.7 - 1.2 mg/dL) 1.0 Estimated GFR (>60 ml/min) > 60 Glucose (65 - 99 mg/dL) 128 H Calcium (8.4 - 10.2 mg/dL) 8.7 Phosphorus (2.5 - 4.5 mg/dL) 2.6 Magnesium (1.6 - 2.3 mg/dL) 2.2 Total Bilirubin (0.2 - 1.3 mg/dL) 0.4 AST (17 - 59 U/L) 26 ALT (21 - 72 U/L) 34 Albumin (3.5 - 5.0 g/dL) 2.8 L Hematology CBC w Diff MAN DIFF ORDERED WBC (4.8 - 10.8 /CUMM) 6.1 RBC (4.70 - 6.10 /CUMM) 3.01 L Hgb (14.0 - 18.0 G/DL) 10.5 L Hct (42 - 52 %) 29.5 L MCV (80.0 - 94.0 FL) 97.9 H MCH (27.0 - 31.0 PG) 34.8 H RDW (11.5 - 14.5 %) 13.0 Plt Count (130 - 400 /CUMM) 155 MPV (7.4 - 10.4 FL) 8.9 Gran % (42.2 - 75.2 %) 85.1 H Lymphocytes % (20.5 - 51.1 %) 11.6 L Monocytes % (1.7 - 9.3 %) 2.7 Eosinophils % (0 - 5 %) 0.4 Basophils % (0.0 - 2.0 %) 0.2 Absolute Granulocytes (1.4 - 6.5 /CUMM) 5.2 Segmented Neutrophils (42.2 - 75.2 %) 80 H Band Neutrophils (0.0 - 5.0 %) 7 H Absolute Lymphocytes (1.2 - 3.4 /CUMM) 0.7 L Lymphocytes (20.5 - 51.1 %) 9 L Monocytes (1.7 - 9.3 %) 4 Absolute Monocytes (0.10 - 0.60 /CUMM) 0.2 Absolute Eosinophils (0.0 - 0.7 /CUMM) 0 Absolute Basophils (0.0 - 0.2 /CUMM) 0 Platelet Estimate (ADEQUATE) ADEQUATE Polychromasia 1+ Ovalocytes FEW PUBS MCHC (33.0 - 37.0 G/DL) 35.5 Other Body Source Fld Total RBCs Counted (%) 100 03/13 0400 Chemistry Sodium (137 - 145 mmol/L) 136 L Potassium (3.5 - 5.1 mmol/L) 3.6 Chloride (98 - 107 mmol/L) 101 Carbon Dioxide (22 - 30 mmol/L) 26 Anion Gap (5 - 16) 9 BUN (9 - 20 mg/dL) 15 Creatinine (0.7 - 1.2 mg/dL) 1.1 Estimated GFR (>60 ml/min) > 60 Glucose (65 - 99 mg/dL) 151 H Calcium (8.4 - 10.2 mg/dL) 8.6 Phosphorus (2.5 - 4.5 mg/dL) 2.0 L Magnesium (1.6 - 2.3 mg/dL) 2.1 Total Bilirubin (0.2 - 1.3 mg/dL) 0.6 AST (17 - 59 U/L) 28 ALT (21 - 72 U/L) 37 Albumin (3.5 - 5.0 g/dL) 2.8 L Hematology CBC w Diff MAN DIFF ORDERED WBC (4.8 - 10.8 /CUMM) 4.5 L RBC (4.70 - 6.10 /CUMM) 3.07 L Hgb (14.0 - 18.0 G/DL) 10.4 L Hct (42 - 52 %) 30.1 L MCV (80.0 - 94.0 FL) 98.3 H MCH (27.0 - 31.0 PG) 34.1 H RDW (11.5 - 14.5 %) 13.1 Plt Count (130 - 400 /CUMM) 142 MPV (7.4 - 10.4 FL) 7.8 Gran % (42.2 - 75.2 %) 85.7 H Lymphocytes % (20.5 - 51.1 %) 9.2 L Monocytes % (1.7 - 9.3 %) 4.9 Eosinophils % (0 - 5 %) 0 Basophils % (0.0 - 2.0 %) 0.2 Absolute Granulocytes (1.4 - 6.5 /CUMM) 3.8 Segmented Neutrophils (42.2 - 75.2 %) 63 Band Neutrophils (0.0 - 5.0 %) 20 H Absolute Lymphocytes (1.2 - 3.4 /CUMM) 0.4 L Lymphocytes (20.5 - 51.1 %) 9 L Monocytes (1.7 - 9.3 %) 4 Absolute Monocytes (0.10 - 0.60 /CUMM) 0.2 Absolute Eosinophils (0.0 - 0.7 /CUMM) 0 Absolute Basophils (0.0 - 0.2 /CUMM) 0 Metamyelocytes (0.0 - 1.0 %) 4 H Platelet Estimate (ADEQUATE) ADEQUATE Hypochromic-Microcytic 1+ Basophilic Stippling 1+ PUBS MCHC (33.0 - 37.0 G/DL) 34.7 Assessment/Plan Assessment/Plan 46yo M POD#3 s/p Yossi's procedure. AVSS, patient stable. - NPO, NGT to LWS - Pain control - continue abx - IVF - replace K+ - labs in a.m. - I/O's - SC heparin and ALPS - ARBF - PRN zofran - Daily dressing changes - continue ALIA to bulb suction - will d/w attending Core Measures/Miscellaneous Holbrook Catheter Date In: 12/24/16 Venous Thromboembolism VTE Risk Factors: No Risk Factors VTE Contraindications: No Contraindications VTE Diagnosis: No VTE Type: NONE VTE Confirmed by (Test): NONE Beta Jennifer Is Beta Jennifer a Home Med? No Antibiotics Is Patient on Antibiotics? Yes If Yes: infection
[2016-12-26 08:00] VITALS: BP 120/68
--- NOTE | 2016-12-26 11:35 | NUR ---
@0800-PT ALERT AND ORIENTED. CALM AND COOP. VSS. MEDICATED WITH MORPHINE 4MG PER PRN ORDER. 2LNC. 02SAT 96%. LUNGS CLEAR. DENIES SOB. NSR HR 80S. BP STABLE. PT REMAINS NPO WITH ICE CHIPS AND SIPS OF H20. NGT TO L NARES NOTED TO LWS. HYPOACTIVE BS. +FLATUS NOTED AT THIS TIME. COLOSTOMY NOTED TO L ABD-MIN SERROUS DRAINAGE NOTED. R TO MID ABD ALIA NOTED TO SELF SUCTION WITH MIN SS DRAINAGE NOTED. DSG INTACT TO MIDLINE ABD-WILL DISCUSS WITH SURG PA ON CHANGING SURGICAL DSG TODAY. MENDOZA IN PLACE, ADEQUATE OUTPUT NOTED. SKIN INTACT. LARGE REDDENED/WARM/SWOLLEN AREA NOTED TO L FLANK EXTENDING TO BACK-AREA TENDER TO TOUCH BUT PT STATES THAT TENDERNESS MORE TOLERABLE THAN YEST. AREA OUTLINED WITH SKIN MARKER. IVF CONT D51/2NS WITH 20MEQ KCL INFUSING AT 100ML/HR. IV FLAGYL INFUSING. CONT TO MONITOR, CALL MARK WITHIN REACH. PLAN TO GET OOB TODAY.
--- NOTE | 2016-12-26 11:40 | NUR ---
@1045-PT ASSISTED OOB TO CHAIR. MADHU WELL. MEDICATED WITH PRN MORPHINE. IVF CONT. TITRATED TO RA. O2SAT 94-97%. DENIES SOB. CONT TO MONITOR. AT BEDSIDE. CALL MAKR WITHIN REACH.
--- NOTE | 2016-12-26 14:27 | NUR ---
@1400-THIS RN TRAVELED WITH PT TO [facility] FOR CT OF ABD/PELVIS DUE TO RED/SWOLLEN AREA TO L FLANK/BACK. PT ASSISTED BACK TO BED FROM STRETCHER. ASSISTED TO COMF POSITION. LAST MEDICATED AT 1345. AT BEDSIDE. CONT TO MONITOR. CALL MARK WITHIN REACH.
--- NOTE | 2016-12-26 14:37 | CT SCAN REPORT ---
EXAMINATION: CT ABDOMEN AND PELVIS WITHOUT CONTRAST CLINICAL INFORMATION: Abscess. Left flank cellulitis after colectomy/colostomy COMPARISON: Portions of a previous study 12/23/16 TECHNIQUE: Multidetector volumetric imaging was performed from the superior aspect of the liver through the pubic symphysis. Sagittal and coronal reformatted images were obtained on the technologist's workstation. DLP: 565 mGy-cm FINDINGS: LUNG BASES: There are bandlike opacities in both lung bases and there is a small amount of pleural fluid or reaction. This may be due to hypoinflation and atelectasis in postop state. LIVER, GALLBLADDER, AND BILIARY TREE: No suspicious focal abnormality in the liver. High density dependent within the gallbladder could be related to vicarious excretion of contrast from previous study. The extrahepatic biliary tree is at least top normal. PANCREAS: No suspicious abnormality SPLEEN: Within normal limits ADRENAL GLANDS: No suspicious abnormality KIDNEYS AND URETERS: No dilation of the urinary collecting system. No suspicious renal mass. No significant ureteral dilation. BLADDER: Decompressed by a balloon catheter which likely accounts for some gas within the bladder GASTROINTESTINAL TRACT: There has been interval surgery. There is creation of a Yossi pouch with metallic suture in the region of the rectosigmoid junction. There is an end descending colostomy in the left lower quadrant. There is a drain entering near the midline just above the attachment of the rectus. The drain extends into the left paracolic gutter. There is stranding greatest in the left lower quadrant. The extraluminal gas demonstrated on the previous study is significantly decreased. There are multiple distended small bowel loops. This extends to the terminal ileum. No definite zone of transition. There is a nasogastric tube extending into the mid stomach. There is stranding in the left lower quadrant with thickening of the fascial planes. There is some fluid attenuation in the retroperitoneum on the left lower quadrant. There is no significant drainable fluid collection within the peritoneum. Small amount of perihepatic fluid. ABDOMINAL WALL: There is stranding and low-attenuation within the left flank abdominal wall. No discrete drainable abscess suspected. This does represent an interval change. As described there is a left lower quadrant colostomy. Midline skin maximino. LYMPH NODES: There are no measurably enlarged lymph nodes. Scattered nonenlarged retroperitoneal lymph nodes. VASCULAR: There is no abdominal aortic aneurysm. PELVIC VISCERA: No definite abnormality the prostate or seminal vesicles. OSSEOUS STRUCTURES: No suspicious focal bony lesion IMPRESSION: Interval creation of a Yossi pouch with mucous fistula and an end descending left lower quadrant colostomy. There is a drain with improvement in the extraluminal gas in the left lower quadrant. Thickening of the fascial planes in the peritoneum and retroperitoneum and extraperitoneal fat. There is now fluid and stranding in the left flank abdominal wall without a discrete drainable collection. If there is clinical evidence of a developing abscess this area could be reexamined including IV contrast in a few days. Diffuse small bowel dilation which may be related to postoperative ileus
[2016-12-26 16:00] VITALS: BP 122/72
--- NOTE | 2016-12-26 19:48 | Operative Report ---
Operative/Inv Procedure Report Surgery Date: 12/23/16 Name of Procedure: Rodrigues's procedure Pre-Operative Diagnosis: Acute abdomen peritonitis perforated sigmoid diverticulitis Post-Operative Diagnosis: Same Estimated Blood Loss: less than 50ml Surgeon/Index Editor: DALTON SAMPSON,CLAY GODDARD Anesthesia: general endotracheal tube Operative/Procedure Note Note: Patient was positioned supine, after induction of general anesthesia, a tap block was performed, IV antibiotics were given and then the abdomen was clipped prepped and draped from the nipples to the groin in the usual sterile fashion. A midline incision was made with a 10 blade starting just above the umbilicus extending vertically in the midline inferiorly approximately 15 cm, clearing off the linea alba first then carefully incising it, avoiding injury to the underlying bowel. The abdomen was explored there was free fluid fibrinous exudate sigmoid colon was very thickened with a very short edematous mesentery which appeared to have gas tracking in it and then down into the retroperitoneum along the white line of Toldt on the left going up towards the spleen there actually wasn't any free stool as suspected on imaging it was gas dissecting, and the fluid was odorlous but relatively clear and brown, not thick pus. Obvious stool and free fluid mostly in the left lower quadrant and pelvis, there was some fibrin peel on sufaces. The sigmoid colon which contained the perforation was carefully mobilized the thickened mesentery was very fragile, it was mobilized in a [id number] manner at times opening up the white line at other times scoring the mesentery near the rectosigmoid junction then with a TA 60, 4.8 staple size we divided the distal sigmoid colon first, having developed a window between the bowel wall and the mesentery with the LigaSure in this spot once that was loose he could use it as a handle and go back dividing the mesentery towards the proximal sigmoid portion, which was then divided with a TA as well, completing the resection. At this point the stapled end of the colon was not nearly long enough to traverse the abdominal wall for a colostomy we had to mobilize it but not take the blood supply to the cut end. At this time we could appreciate how far the gangrenous changes ascended in the retroperitoneum but I dissected almost to the spleen where at that point the tissues appeared normal again we debrided some of this but out of concern for the kidney the ureter and the gonadal vessels we weren't too aggressive I just made sure that this area was open and we placed a Nahum-Wood drain here. The colon was viable. After carefully aiming the ostomy hole in the abdominal wall on the left side we made it first cutting through the skin a circular opening carrying it through the subcutaneous fat splitting the muscles of the abdominal wall and opening the peritoneum paying care to avoid injury to the epigastric vessels and adjusting the opening so that it would easily admit 2 fingers. Even after this was difficult to bring up the ostomy all the way to the skin level we were limited by of vessel supplying the end of the ostomy which I did not want to sacrifice so we were able to get it up to the skin level but I did not mature the whole taple line, but rather the most external portion of. This was done with multiple interrupted 3-0 Vicryl sutures in Arti fashion after peritoneum had been copiously irrigated and then closed in layers at the fascial level using continuous runs of 0 Maxon suture reapproximating the subcutaneous layer with interrupted 3-0 Vicryl sutures deliberately leaving gaps and then maximino loosely spaced for skin followed by gauze and tape. An ostomy appliance was placed. EBL minimal lap and sponge counts correct wound expectancy was dirty, IV fluids crystalloid complications none, patient tolerated the procedure well and was returned to the recovery room /ICU in satisfactory condition, extubated.
[2016-12-27] VITALS: BP 117/73
--- NOTE | 2016-12-27 05:48 | PN- General Surgery ---
See Addendum Subjective Subjective: NAEO. Patient without new c/o. Continues to have incisional pain which is controlled with pain meds. Denies n/v. Small amount of gas but no stool in ostomy bag. Patient was OOB to chair yesterday. Denies CP/SOB. Objective Vital Signs and I&Os Vital Signs Date Time Temp Pulse Resp B/P Pulse O2 O2 Flow FiO2 Ox Delivery Rate 12/27 0400 95 Nasal 1.0L Cannula 12/27 0000 97 Nasal 1.0L Cannula 12/27 0000 97.0 87 18 117/73 97 Room Air 12/26 2315 95 Nasal 1.0L Cannula 12/26 1600 99 Nasal 1.0L Cannula 12/26 1600 98.7 89 16 122/72 99 Nasal 1.0L Cannula 12/26 1200 97 Nasal 2.0L Cannula 12/26 0800 97.9 87 22 120/68 97 Nasal 2.0L Cannula 12/26 0800 97 Nasal 2.0L Cannula Intake & Output 12/27 0800 12/27 0000 12/26 1600 12/26 0800 12/26 0000 12/25 1600 Intake Total 1050 924 372 193 0490 Output Total 670 790 430 345 830 Balance 380 134 470 605 590 Intake, IV 1050 824 977 678 2080 Intake, Oral 100 0 Intake, Other 0 Output, 130 10 20 20 Drainage Output, 100 200 150 300 Gastric Drainage Output, Other 140 Output, Stool 10 10 5 10 Output, Urine 430 450 260 320 500 Patient 185 lb Weight Physical Exam: General: NAD, comfortable, A&Ox3 Chest: CTAB, no wheezes, no rales. Heart S1S2 normal. Abdomen: mild firmness, mildly distended. Appropriately tender around incisions. +bowel sounds. Stoma pink and viable with ostomy appliance in place with small amount of gas in bag. ALIA drain x1 in place with serosanguineous drainage that is somewhat turbid. NG tube with greenish yellow output. Left flank with large area of erythema, swelling and warm to touch which is unchanged in size from yesterday. Ext: No calve swelling/TTP, neurovascularly intact bilateral lower extremities Current Medications: Current Medications Sig/Nhan Start time Last Medication Dose Route Stop Time Status Admin Ceftriaxone Sodium 1,000 MG DAILY@1500 12/26 1500 AC 03/14 IV 1549 Dextrose/Sodium 1,000 ML Q8H 12/24 0200 DC 12/26 Chloride IV 0139 Fluconazole 400 MG Q24H 12/25 1800 AC 12/26 Sodium Chloride 200 ML IV 1820 Heparin Sodium 5,000 UNIT Q8 12/24 0151 AC 12/26 (Porcine) SC 2322 Hydromorphone HCl 2 MG ONCE PRN 12/24 0200 AC 12/24 IV 0140 Metronidazole 500 MG IQ8 12/24 1600 AC 12/26 N/A 1 UNIT IV 2331 Morphine Sulfate 2 MG Q3P PRN 12/24 0645 AC IV Morphine Sulfate 4 MG Q3P PRN 12/24 0645 AC 12/27 IV 0226 Ondansetron HCl 4 MG Q6P PRN 12/24 0200 AC IV Pantoprazole Sodium 40 MG DAILY 12/24 1000 AC 12/26 IV 0917 Petrolatum 1 ABBY TID 12/24 0200 DC 12/25 OPH 1000 Potassium Chloride 20 MEQ Q10H 12/26 0700 AC 12/27 Dextrose/Sodium 1,000 ML IV 0230 Chloride Results Last 48 Hours of Labs: Laboratory Tests 12/26 12/26 0530 0434 Chemistry Sodium (137 - 145 mmol/L) 138 Potassium (3.5 - 5.1 mmol/L) 3.4 L Chloride (98 - 107 mmol/L) 99 Carbon Dioxide (22 - 30 mmol/L) 28 Anion Gap (5 - 16) 10 BUN (9 - 20 mg/dL) 14 Creatinine (0.7 - 1.2 mg/dL) 1.0 Estimated GFR (>60 ml/min) > 60 Glucose (65 - 99 mg/dL) 128 H Calcium (8.4 - 10.2 mg/dL) 8.7 Phosphorus (2.5 - 4.5 mg/dL) 2.6 Magnesium (1.6 - 2.3 mg/dL) 2.2 Total Bilirubin (0.2 - 1.3 mg/dL) 0.4 AST (17 - 59 U/L) 26 ALT (21 - 72 U/L) 34 Albumin (3.5 - 5.0 g/dL) 2.8 L Hematology CBC w Diff MAN DIFF ORDERED WBC (4.8 - 10.8 /CUMM) 6.1 RBC (4.70 - 6.10 /CUMM) 3.01 L Hgb (14.0 - 18.0 G/DL) 10.5 L Hct (42 - 52 %) 29.5 L MCV (80.0 - 94.0 FL) 97.9 H MCH (27.0 - 31.0 PG) 34.8 H RDW (11.5 - 14.5 %) 13.0 Plt Count (130 - 400 /CUMM) 155 MPV (7.4 - 10.4 FL) 8.9 Gran % (42.2 - 75.2 %) 85.1 H Lymphocytes % (20.5 - 51.1 %) 11.6 L Monocytes % (1.7 - 9.3 %) 2.7 Eosinophils % (0 - 5 %) 0.4 Basophils % (0.0 - 2.0 %) 0.2 Absolute Granulocytes (1.4 - 6.5 /CUMM) 5.2 Segmented Neutrophils (42.2 - 75.2 %) 80 H Band Neutrophils (0.0 - 5.0 %) 7 H Absolute Lymphocytes (1.2 - 3.4 /CUMM) 0.7 L Lymphocytes (20.5 - 51.1 %) 9 L Monocytes (1.7 - 9.3 %) 4 Absolute Monocytes (0.10 - 0.60 /CUMM) 0.2 Absolute Eosinophils (0.0 - 0.7 /CUMM) 0 Absolute Basophils (0.0 - 0.2 /CUMM) 0 Platelet Estimate (ADEQUATE) ADEQUATE Polychromasia 1+ Ovalocytes FEW PUBS MCHC (33.0 - 37.0 G/DL) 35.5 Other Body Source Fld Total RBCs Counted (%) 100 Assessment/Plan Assessment/Plan 46yo M POD#4 s/p Yossi's procedure. +Left flank erythema, warmth, and swellign. AVSS, patient stable. - NPO, NGT to LWS - Pain control - continue abx - IVF - f/u labs - repeat labs in a.m. - I/O's - SC heparin and ALPS - ARBF - PRN zofran - Daily dressing changes - continue ALIA to bulb suction - monitor left flank erythema - will d/w attending Core Measures/Miscellaneous Holbrook Catheter Date In: 12/24/16 Venous Thromboembolism VTE Risk Factors: No Risk Factors VTE Contraindications: No Contraindications VTE Diagnosis: No VTE Type: NONE VTE Confirmed by (Test): NONE Beta Jennifer Is Beta Jennifer a Home Med? No Antibiotics Is Patient on Antibiotics? Yes If Yes: infection
[2016-12-27 06:47] LABS: ABSOLUTE BASOPHIL COUNT 0 /CUMM (0.0-0.2); ABSOLUTE EOSINOPHIL COUNT 0.1 /CUMM (0.0-0.7); ABSOLUTE GRANULOCYTE CT 6.2 /CUMM (1.4-6.5); ABSOLUTE LYMPH COUNT 0.9 /CUMM (1.2-3.4); ABSOLUTE MONOCYTE COUNT 0.4 /CUMM (0.10-0.60); BASOPHIL % 0.2 % (0.0-2.0); EOSINOPHIL % 1.4 % (0-5); GRANULOCYTE % 81.6 % (42.2-75.2); MEAN CORPUSCULAR HGB 33.3 PG (27.0-31.0); MEAN CORPUSCULAR HGB CONC 34.1 G/DL (33.0-37.0); MEAN CORPUSCULAR VOLUME 97.6 FL (80.0-94.0); RBC DISTRIBUTION WIDTH 13.2 % (11.5-14.5); RED BLOOD CELL CT 2.97 /CUMM (4.70-6.10); WHITE BLOOD CELL COUNT 7.6 /CUMM (4.8-10.8)
[2016-12-27 06:52] LABS: PLATELET COUNT 237 /CUMM (130-400)
[2016-12-27 08:00] VITALS: BP 130/70
--- NOTE | 2016-12-27 09:07 | NUR ---
@0800-PT ALERT AND ORIENTED. CALM AND COOP. PAIN SCALE 7-9. PT HAS BEEN RECIEVING MORPHINE 4MG [id number]. WILL DISCUSS WITH SURGICAL STAFF THIS AM CONCERNING PAIN MANAGEMENT. CONT ON RA. LUNGS CLEAR. DIM TO BASES. CONT TO ENCOURAGE IST USE. NSR HR 70S. BP STABLE. REMAINS NPO WITH ICE CHIPS. NGT TO L NARES TO LWS-MIN YELLOW DRAINAGE NOTED. COLOSTOMY IN PLACE, PINK STOMA, MIN SERROUS DRAINAGE. MENDOZA IN PLACE WITH ADEQUATE OUTPUT. ALIA TO L ABD WITH SS DRAINAGE. MIDLINE SURG JT-DSG CDI. RED/WARM AREA CONT TO L FLANK TO L BACK-IMPROVED FROM YEST ASSESSMENT OF SITE. WILL GET OOB THIS AM. IVF CONT. IVF FLAGYL CONT ORD. LABS STABLE. CONT TO MONITOR, CALL DEEDEE STOUT.
--- NOTE | 2016-12-27 12:25 | NUR ---
@1200-PT DOWNGRADED TO [facility]. NGT CLAMPED. TO START ON CLEAR LIQ DIET, AWAITING TRAY. MENDOZA TO BE DC'D. MEDICATED WITH IV TORADOL FOR PAIN. CONT TO MONITOR, CALL MARK WITHIN REACH.
--- NOTE | 2016-12-27 13:26 | PN- Infect Dx ---
Subjective Subjective: Afebrile. He feels well with no complaints. Objective Last 24 Hrs of Vital Signs/I&O Vital Signs Date Time Temp Pulse Resp B/P Pulse O2 O2 Flow FiO2 Ox Delivery Rate 12/27 0800 97.5 87 17 130/70 99 Room Air 12/27 0400 95 Nasal 1.0L Cannula 12/27 0000 97 Nasal 1.0L Cannula 12/27 0000 97.0 87 18 117/73 97 Room Air 12/26 2315 95 Nasal 1.0L Cannula 12/26 1600 99 Nasal 1.0L Cannula 12/26 1600 98.7 89 16 122/72 99 Nasal 1.0L Cannula Intake & Output 12/27 1600 12/27 0800 12/27 0000 Intake Total 629 1050 Output Total 920 670 Balance -291 380 Intake, IV 629 1050 Intake, Oral 0 Number 0 Bowel Movements Output, 100 Drainage Output, 50 100 Gastric Drainage Output, Other 140 Output, Stool 20 Output, Urine 750 430 Physical Exam Other Physical Findings: He appears comfortable in no acute distress HEENT NG tube remains in place Lungs are clear Heart regular rhythm with no murmur Abdomen soft, mildly tender on palpation, positive bowel sounds; gas but no stool in the colostomy Back decreased erythema and induration of the left flank, minimally tender to palpation Extremities no cyanosis, clubbing or edema Holbrook catheter remains in place Results Last 24 Hours of Lab Results: Laboratory Tests 12/27 0545 Chemistry Sodium (137 - 145 mmol/L) 137 Potassium (3.5 - 5.1 mmol/L) 4.0 Chloride (98 - 107 mmol/L) 100 Carbon Dioxide (22 - 30 mmol/L) 28 Anion Gap (5 - 16) 9 BUN (9 - 20 mg/dL) 15 Creatinine (0.7 - 1.2 mg/dL) 0.8 Estimated GFR (>60 ml/min) > 60 BUN/Creatinine Ratio (7 - 25 %) 18.8 Phosphorus (2.5 - 4.5 mg/dL) 3.0 Magnesium (1.6 - 2.3 mg/dL) 1.9 Hematology CBC w Diff NO MAN DIFF REQ WBC (4.8 - 10.8 /CUMM) 7.6 RBC (4.70 - 6.10 /CUMM) 2.97 L Hgb (14.0 - 18.0 G/DL) 9.9 L Hct (42 - 52 %) 29.0 L MCV (80.0 - 94.0 FL) 97.6 H MCH (27.0 - 31.0 PG) 33.3 H RDW (11.5 - 14.5 %) 13.2 Plt Count (130 - 400 /CUMM) 237 MPV (7.4 - 10.4 FL) 8.0 Gran % (42.2 - 75.2 %) 81.6 H Lymphocytes % (20.5 - 51.1 %) 11.4 L Monocytes % (1.7 - 9.3 %) 5.4 Eosinophils % (0 - 5 %) 1.4 Basophils % (0.0 - 2.0 %) 0.2 Absolute Granulocytes (1.4 - 6.5 /CUMM) 6.2 Absolute Lymphocytes (1.2 - 3.4 /CUMM) 0.9 L Absolute Monocytes (0.10 - 0.60 /CUMM) 0.4 Absolute Eosinophils (0.0 - 0.7 /CUMM) 0.1 Absolute Basophils (0.0 - 0.2 /CUMM) 0 PUBS MCHC (33.0 - 37.0 G/DL) 34.1 Last 24 Hours of Dimitri Results: OR culture December 23 labeled peritoneal fluid positive for alpha strep, Escherichia coli, Fusobacterium and Evelyn albicans Recent Imaging Studies: CT of the abdomen and pelvis without contrast December 26 reveals thickening of the fascial planes in the peritoneum and retroperitoneum and extraperitoneal fat, with fluid and stranding in the left flank abdominal wall with no discrete drainable collection Assessment/Plan Impression: Improved with temperatures and white blood cell count remaining normal, with no further bandemia, now 4 days status post Rodrigues's procedure for a perforated diverticulitis, on Ceftriaxone, Flagyl and Fluconazole for a polymicrobial infection. The left flank inflammation appears improved, with the repeat CT scan negative for any discrete collection. Suggestion: 1. Remove Holbrook catheter 2. Continue Ceftriaxone, Flagyl and Fluconazole
--- NOTE | 2016-12-27 15:32 | NUR ---
@1430-NGT REMOVED AFTER PT MADHU CLEAR LIQ DIET. AMBULATED IN [place] WITH ASSIST OF RN. CONT GENMED HOLD. MEDICATED WITH MORPHINE AT 1350. CONT TO MONITOR SUPPORT AND COMFORT NEEDED.
[2016-12-27 16:00] VITALS: BP 110/60
--- NOTE | 2016-12-27 16:14 | NUR ---
@1600-CONT GM HOLD. VSS. NGT REMOVED. PT DENIES NAUSEA. +BS-HYPOACTIVE. CLEAR LIQ DIET STARTED. TORADOL AND MORPHINE PRN FOR PAIN. DTV BY [id number]. RED/WARM AREA TO L FLANK IMPROVING-PT DENIES TENDERNESS TO AREA. L ALIA SITE CONT TO DRAIN SS DRAINAGE. IV ABX ADMINISTERED ORD. CONT TO MONITOR, CALL MARK WITHIN REACH.
[2016-12-27 22:00] VITALS: BP 118/88
[2016-12-28] VITALS: BP 118/78
[2016-12-28 05:39] LABS: ABSOLUTE BASOPHIL COUNT 0 /CUMM (0.0-0.2); ABSOLUTE EOSINOPHIL COUNT 0.2 /CUMM (0.0-0.7); ABSOLUTE GRANULOCYTE CT 7.1 /CUMM (1.4-6.5); ABSOLUTE LYMPH COUNT 1.1 /CUMM (1.2-3.4); ABSOLUTE MONOCYTE COUNT 0.4 /CUMM (0.10-0.60); BASOPHIL % 0.3 % (0.0-2.0); EOSINOPHIL % 2.5 % (0-5); MEAN CORPUSCULAR HGB 33.3 PG (27.0-31.0); MEAN CORPUSCULAR HGB CONC 34.1 G/DL (33.0-37.0); MEAN CORPUSCULAR VOLUME 97.8 FL (80.0-94.0); MEAN PLATELET VOLUME 7.8 FL (7.4-10.4); PLATELET COUNT 269 /CUMM (130-400); RBC DISTRIBUTION WIDTH 13.4 % (11.5-14.5); RED BLOOD CELL CT 3.27 /CUMM (4.70-6.10); WHITE BLOOD CELL COUNT 8.9 /CUMM (4.8-10.8)
--- NOTE | 2016-12-28 06:37 | PN- General Surgery ---
See Addendum Subjective Subjective: pod#5 s/p hernandez's tolerating clears no n+v denies cp, sob Objective Vital Signs and I&Os Vital Signs Date Time Temp Pulse Resp B/P Pulse O2 O2 Flow FiO2 Ox Delivery Rate 12/28 0000 97.7 82 18 118/78 97 Room Air 12/27 2200 98.9 90 20 118/88 99 Room Air 12/27 1600 97.9 86 18 110/60 97 Room Air 12/27 0800 97.5 87 17 130/70 99 Room Air Intake & Output 12/28 0800 12/28 0000 12/27 1600 12/27 0800 12/27 0000 12/26 1600 Intake Total 240 181 044 6334 924 Output Total 140 430 920 670 790 Balance 100 480 -291 380 134 Intake, IV 537 544 4380 824 Intake, Oral 240 360 0 100 Number 0 Bowel Movements Output, 40 70 100 130 Drainage Output, 100 50 100 200 Gastric Drainage Output, Other 140 Output, Stool 100 10 20 10 Output, Urine 250 750 430 450 Physical Exam: cv: rrr lungs: clear abd: softly distended stoma pink, viable brown stool in ostomy ext: warm, distal cms intact Assessment/Plan Assessment/Plan stable tolerating diet plan advance diet per attending d/c home soon Core Measures/Miscellaneous Holbrook Catheter Date In: 12/24/16 Venous Thromboembolism VTE Risk Factors: No Risk Factors VTE Contraindications: No Contraindications VTE Diagnosis: No VTE Type: NONE VTE Confirmed by (Test): NONE Beta Jennifer Is Beta Jennifer a Home Med? No Antibiotics Is Patient on Antibiotics? Yes If Yes: infection
[2016-12-28 08:00] VITALS: BP 120/74
--- NOTE | 2016-12-28 10:01 | PN- Infect Dx ---
Subjective Subjective: Afebrile. He feels well today with no complaints Objective Last 24 Hrs of Vital Signs/I&O Vital Signs Date Time Temp Pulse Resp B/P Pulse O2 O2 Flow FiO2 Ox Delivery Rate 12/28 0000 97.7 82 18 118/78 97 Room Air 12/27 2200 98.9 90 20 118/88 99 Room Air 12/27 1600 97.9 86 18 110/60 97 Room Air Intake & Output 12/28 1600 12/28 0800 12/28 0000 Intake Total 1000 240 Output Total 590 140 Balance 410 100 Intake, IV 100 Intake, Oral 900 240 Output, 65 40 Drainage Output, Stool 75 100 Output, Urine 450 Physical Exam Other Physical Findings: He appears comfortable in no acute distress Lungs are clear Heart regular rhythm with no murmur Abdomen soft, mildly tender on palpation of the left lower quadrant, with positive bowel sounds; colostomy with stool reported Back minimal erythema with no induration appreciated over the left flank Extremities no cyanosis, clubbing or edema Results Last 24 Hours of Lab Results: Laboratory Tests 12/28 0400 Chemistry Sodium (137 - 145 mmol/L) 132 L Potassium (3.5 - 5.1 mmol/L) 3.5 Chloride (98 - 107 mmol/L) 96 L Carbon Dioxide (22 - 30 mmol/L) 25 Anion Gap (5 - 16) 10 BUN (9 - 20 mg/dL) 19 Creatinine (0.7 - 1.2 mg/dL) 1.0 Estimated GFR (>60 ml/min) > 60 Glucose (65 - 99 mg/dL) 91 Calcium (8.4 - 10.2 mg/dL) 8.7 Phosphorus (2.5 - 4.5 mg/dL) 3.8 Magnesium (1.6 - 2.3 mg/dL) 1.8 Total Bilirubin (0.2 - 1.3 mg/dL) 0.7 AST (17 - 59 U/L) 56 ALT (21 - 72 U/L) 42 Albumin (3.5 - 5.0 g/dL) 2.7 L Hematology CBC w Diff NO MAN DIFF REQ WBC (4.8 - 10.8 /CUMM) 8.9 RBC (4.70 - 6.10 /CUMM) 3.27 L Hgb (14.0 - 18.0 G/DL) 10.9 L Hct (42 - 52 %) 32.0 L MCV (80.0 - 94.0 FL) 97.8 H MCH (27.0 - 31.0 PG) 33.3 H RDW (11.5 - 14.5 %) 13.4 Plt Count (130 - 400 /CUMM) 269 MPV (7.4 - 10.4 FL) 7.8 Gran % (42.2 - 75.2 %) 80.0 H Lymphocytes % (20.5 - 51.1 %) 12.9 L Monocytes % (1.7 - 9.3 %) 4.3 Eosinophils % (0 - 5 %) 2.5 Basophils % (0.0 - 2.0 %) 0.3 Absolute Granulocytes (1.4 - 6.5 /CUMM) 7.1 H Absolute Lymphocytes (1.2 - 3.4 /CUMM) 1.1 L Absolute Monocytes (0.10 - 0.60 /CUMM) 0.4 Absolute Eosinophils (0.0 - 0.7 /CUMM) 0.2 Absolute Basophils (0.0 - 0.2 /CUMM) 0 PUBS MCHC (33.0 - 37.0 G/DL) 34.1 Last 24 Hours of Dimitri Results: No new cultures Assessment/Plan Impression: Doing well with temperatures and white blood cell count remaining normal now 5 days status post Rodrigues's procedure for a perforated diverticulitis, on Ceftriaxone, Flagyl and Fluconazole for a polymicrobial infection. The left flank inflammation appears to have mostly resolved, with the repeat CT scan negative for any discrete collection. Suggestion: 1. Continue Ceftriaxone, Flagyl and Fluconazole
--- NOTE | 2016-12-28 14:25 | Patient Discharge Instructions ---
Discharge Instructions General Discharge Information You were seen/treated for: peritonitis, perforated sigmoid diverticulitis You had these procedures: Surgery Date: 12/23/16 Name of Procedure: Rodrigues's procedure Watch for these problems: fever>101.3, increased pain, redness/swelling/drainage, nausea/vomiting Call Surgeon to remove: Maximino No bath, but you may shower: Yes Other wound care: maximino to be removed at your follow up appointment, around post-op day#10-14 Special Instructions: colostomy care Diet Continue normal diet: No Recommended Diet: Low Residue Additional DIET Information: please review low fiber dietary recommendations when appropriate (3-4 weeks), increased dietary fiber intake Activity Full Activity/No Limits: No Activity Self Limited: Yes Pounds, do NOT lift more than: 10 Other activity limits: no heavy lifting. no strenuous activity. Acute Coronary Syndrome Inclusion Criteria At DC or during hospital stay patient has or had the following: ACS DIAGNOSIS No Discharge Core Measures Meds if any: Prescribed or Continued at Discharge Meds if any: NOT Prescribed or Continued at Discharge Congestive Heart Failure Inclusion Criteria At DC or during hospital stay patient has or had the following: CHF DIAGNOSIS No Discharge Core Measures Meds if any: Prescribed or Continued at Discharge Meds if any: NOT Prescribed or Continued at Discharge Cerebrovascular accident Inclusion Criteria At DC or during hospital stay patient has or had the following: CVA/TIA Diagnosis No Discharge Core Measures Meds if any: Prescribed or Continued at Discharge Meds if any: NOT Prescribed or Continued at Discharge Venous thromboembolism Inclusion Criteria VTE Diagnosis No VTE Type NONE VTE Confirmed by (Test) NONE Discharge Core Measures - Per Current guidelines, there needs to be overlap - treatment for the first 5 days of Warfarin therapy. - If discharged on Warfarin prior to 5 days of - overlap therapy, the patient will need to be - assessed for post discharge needs including - *Post discharge parental anticoagulation - *Warfarin and/or parental anticoagulation education - *Follow up date to check INR post discharge At least 5 days overlap therapy as Inpatient No Meds if any: Prescribed or Continued at Discharge Note: Overlap Therapy is Warfarin and Anticoagulant Meds if any: NOT Prescribed or Continued at Discharge
[2016-12-28] MEDS ORDERED: AUGMENTIN 875-1 EACH PO (14:29)
[2016-12-28] MEDS ORDERED: PERCOCET 5-3251 EACH PO (14:29)
[2016-12-28] MEDS ORDERED: DOCUSATE SODIU100 M3 PO (14:29)
[2016-12-28 15:01] VITALS: BP 120/70
[2016-12-28 21:58] VITALS: BP 138/76
[2016-12-29 06:40] VITALS: BP 140/86
--- NOTE | 2016-12-29 07:58 | PN- General Surgery ---
Subjective Subjective: No complaints. Tolerated food last night. No nausea. Awaiting colostomy teaching. Out of bed without difficulty. No dizziness. No shortness of breath. No chest pains. Anticipates discharge to home today. Objective Vital Signs and I&Os Vital Signs Date Time Temp Pulse Resp B/P Pulse O2 O2 Flow FiO2 Ox Delivery Rate 12/29 0640 98.4 90 18 140/86 100 Room Air 12/28 2158 99.0 99 20 138/76 95 Room Air 12/28 1501 99.4 98 20 120/70 93 Intake & Output 12/29 1600 12/29 0800 12/29 0000 12/28 1600 12/28 0800 12/28 0000 Intake Total 953 472 8316 240 Output Total 1560 640 65 590 140 Balance -610 -190 -65 410 100 Intake, IV 150 100 Intake, Oral 800 450 900 240 Output, 10 15 65 65 40 Drainage Output, Stool 100 100 75 100 Output, Urine 1450 525 450 Physical Exam: General - alert & oriented x 3. comfortable. no acute distress. Lungs - clear bilaterally. no w/r/r. Cardiac - s1s2. reg. Abdomen - soft. midline incision approximated with maximino. no erythema. no exudates. stoma moist & pink with soft brown stool in bag. ALIA drain with serosang drainage. Extremities - warm bilaterally. no c/c/e. calves soft and nontender b/l. Assessment/Plan Assessment/Plan 46yo M POD#6 s/p debra's procedure for perforated diverticulitis, improved/ resolved left flank erythema tolerating low residue diet pain controlled with percocet transition IV to oral antibiotics to complete 4 more days of augmentin and diflucan for intra-abdominal infection colostomy teaching prior to discharge home remove ALIA drain dressing changed f/u labs hep sc - dvt ppx d/c home today d/w and Core Measures/Miscellaneous Holbrook Catheter Date In: 12/24/16 Venous Thromboembolism VTE Risk Factors: No Risk Factors VTE Contraindications: No Contraindications VTE Diagnosis: No VTE Type: NONE VTE Confirmed by (Test): NONE Beta Jennifer Is Beta Jennifer a Home Med? No Antibiotics Is Patient on Antibiotics? Yes If Yes: infection
[2016-12-29] MEDS ORDERED: DIFLUCAN200 M1 PO (08:12)
[2016-12-29] MEDS ORDERED: AUGMENTIN 875-1 EACH PO (08:12)
[2016-12-29 08:17] VITALS: BP 138/80
[2016-12-29 08:35] LABS: ABSOLUTE BASOPHIL COUNT 0 /CUMM (0.0-0.2); ABSOLUTE EOSINOPHIL COUNT 0.2 /CUMM (0.0-0.7); ABSOLUTE GRANULOCYTE CT 10.3 /CUMM (1.4-6.5); ABSOLUTE LYMPH COUNT 0.8 /CUMM (1.2-3.4); ABSOLUTE MONOCYTE COUNT 0.4 /CUMM (0.10-0.60); BASOPHIL % 0.1 % (0.0-2.0); EOSINOPHIL % 1.6 % (0-5); GRANULOCYTE % 87.7 % (42.2-75.2); HEMATOCRIT 32.7 % (42-52); MEAN CORPUSCULAR HGB 33.2 PG (27.0-31.0); MEAN CORPUSCULAR HGB CONC 34.5 G/DL (33.0-37.0); MEAN CORPUSCULAR VOLUME 96.4 FL (80.0-94.0); MEAN PLATELET VOLUME 7.6 FL (7.4-10.4); PLATELET COUNT 352 /CUMM (130-400); RBC DISTRIBUTION WIDTH 13.3 % (11.5-14.5); RED BLOOD CELL CT 3.39 /CUMM (4.70-6.10)
[2016-12-29 09:38] LABS: WHITE BLOOD CELL COUNT 11.8 /CUMM (4.8-10.8)
--- NOTE | 2016-12-29 15:26 | PN- Infect Dx ---
Subjective Subjective: Afebrile without complaints Objective Last 24 Hrs of Vital Signs/I&O Vital Signs Date Time Temp Pulse Resp B/P Pulse O2 O2 Flow FiO2 Ox Delivery Rate 12/29 0817 138/80 12/29 0640 98.4 90 18 140/86 100 Room Air 12/28 2158 99.0 99 20 138/76 95 Room Air Intake & Output 12/29 1600 12/29 0800 12/29 0000 Intake Total 950 450 Output Total 1560 640 Balance -610 -190 Intake, IV 150 Intake, Oral 800 450 Output, 10 15 Drainage Output, Stool 100 100 Output, Urine 1450 525 Physical Exam Other Physical Findings: He appears comfortable in no acute distress Abdomen is soft, nontender with positive bowel sounds; colostomy with stool in the bag Back left flank mild erythema, tenderness and induration persist Extremities no cyanosis, clubbing or edema Results Last 24 Hours of Lab Results: Laboratory Tests 12/29 0730 Chemistry Sodium (137 - 145 mmol/L) 131 L Potassium (3.5 - 5.1 mmol/L) 3.9 Chloride (98 - 107 mmol/L) 94 L Carbon Dioxide (22 - 30 mmol/L) 27 Anion Gap (5 - 16) 11 BUN (9 - 20 mg/dL) 15 Creatinine (0.7 - 1.2 mg/dL) 0.9 Estimated GFR (>60 ml/min) > 60 BUN/Creatinine Ratio (7 - 25 %) 16.7 Hematology CBC w Diff NO MAN DIFF REQ WBC (4.8 - 10.8 /CUMM) 11.8 H RBC (4.70 - 6.10 /CUMM) 3.39 L Hgb (14.0 - 18.0 G/DL) 11.3 L Hct (42 - 52 %) 32.7 L MCV (80.0 - 94.0 FL) 96.4 H MCH (27.0 - 31.0 PG) 33.2 H RDW (11.5 - 14.5 %) 13.3 Plt Count (130 - 400 /CUMM) 352 MPV (7.4 - 10.4 FL) 7.6 Gran % (42.2 - 75.2 %) 87.7 H Lymphocytes % (20.5 - 51.1 %) 6.9 L Monocytes % (1.7 - 9.3 %) 3.7 Eosinophils % (0 - 5 %) 1.6 Basophils % (0.0 - 2.0 %) 0.1 Absolute Granulocytes (1.4 - 6.5 /CUMM) 10.3 H Absolute Lymphocytes (1.2 - 3.4 /CUMM) 0.8 L Absolute Monocytes (0.10 - 0.60 /CUMM) 0.4 Absolute Eosinophils (0.0 - 0.7 /CUMM) 0.2 Absolute Basophils (0.0 - 0.2 /CUMM) 0 PUBS MCHC (33.0 - 37.0 G/DL) 34.5 Last 24 Hours of Dimitri Results: No recent cultures Assessment/Plan Impression: Overall improved with temperatures remaining normal but with white blood cell count increased today, possibly secondary to the residual inflammation over the left flank, suggesting the possibility of a residual infection related to his perforated diverticulitis now 6 days status post Rodrigues's procedure. He remains on Ceftriaxone, Flagyl and Fluconazole for multiple organisms isolated from the OR culture. Suggestion: 1. Surgical follow-up regarding his left flank induration 2. Continue Ceftriaxone, Flagyl and Fluconazole pending above
--- NOTE | 2016-12-29 15:32 | NUR ---
OSTOMY CARE: PT SEEN THIS AM FOR DC OSTOMY EDUCATION APPROX 12 PM - DISCUSSED WTIH PT STOMA COMPLICATIONS, PERISTOMAL SKIN COMPLICATIONS, WHEN AND HOW TO NOTIFY MD IF COMPLICATIONS ARISE - PT ABLE TO INDEPENDENTLY EMPTY EFFLUENT, REMOVE APPLIANCE AND CLEAN PERISTOMAL SKIN WITH VERBAL CUES - PT ALSO ABLE TO INDEP. REAPPLY STOMA APPLIANCE WITH MINIMAL HANDS ON ASSISTANCE - TO HAVE VNA CARE AT HOME - ALL QUESTIONS ANSWERED - PT STATED A COMFORT IN OSTOMY CARE AT HOME - OFFERED PT CONTACT INFO FOR OSTOMY FOLLOW UP WITH THIS PIPE ORGAN TUNER AND REPAIRER AFTER DC - WILL F/U NEEDED
--- NOTE | 2016-12-29 16:05 | Discharge Summary ---
Visit Information Visit Dates Admission Date: 12/24/16 Discharge Date: 12/29/16 Hospital Course Course Attending Physician: DALTON SAMPSON,CLAY Montalvo Primary Care Physician: ORALIA IVAN MD Hospital Course: TODAY AFEB GOOD UO, INCISION SS, MADHU DIET plan is to discharge home today. To review he was admitted with perforated sigmoid colon requiring an urgent Yossi's procedure his case was unusual in that the perforation spread in the mesentery and retroperitoneal plane, but the bowel itself was viable. Ortmeier been related he did have some transient ipsilateral left flank erythema and tenderness which improved during his recovery which was otherwise uneventful he was tolerating diet afebrile and ambulating. Allergies: Coded Allergies: No Known Allergies (12/23/16) Disposition Summary Disposition Principal Diagnosis: Perforated sigmoid colon, peritonitis Additional Diagnosis: None Discharge Disposition: home or self care Discharge Instructions General Discharge Information Code Status: Full Code Patient's Diet: Continue Patient's Activity: No heavy lifting Follow-Up Instructions/Appts: Next week in office or sooner if issues arise such as fever new pain or drainage Medications at Discharge Discharge Medications: Continue taking these medications: Valsartan/Hydrochlorothiazide (Valsartan-Hctz 160-25 MG Tab) 160 MG-25 MG TABLET 1 Tablet ORAL DAILY Qty = 30 Comments: NOT GIVEN IN HOSPITAL Start taking the following new medications: Amoxicillin/Potassium Clav (Augmentin 875-125 Tablet) 875 MG-125 MG TABLET 1 Tablet ORAL TWICE DAILY Qty = 10 No Refills Instructions: take with food. complete prescription as directed. Docusate Sodium (Docusate Sodium) 100 MG CAPSULE 100 Milligram ORAL TWICE DAILY as needed for CONSTIPATION Days = 14 No Refills Instructions: stool softener available over the counter Comments: NOT GIVEN IN HOSPITAL Oxycodone HCl/Acetaminophen (Percocet 5-325 MG Tablet) 5 MG-325 MG TABLET 1-2 Tablet ORAL EVERY 4-6 HOURS NEEDED as needed for pain control Qty = 36 No Refills Instructions: do not combine with tylenol. you may take tylenol alternatively. Comments: Last Taken: 01/02/17 Time: 10:30 AM Fluconazole (Diflucan) 200 MG TABLET 400 Milligram ORAL DAILY Qty = 5 No Refills Copies To: DALTON SAMPSON,CLAY Montalvo Attending MD Review Statement Documenting Attending: DALTON SAMPSON,CLAY Montalvo
== END 2016-12-29 13:40 | disposition home health service (06) | DRG 330 ==
LOC: ERH 17:27 → CRI 12-24 00:51 → 2NA 12-24 00:51 → ENPENDDIS 12-24 00:51 → 2NA 12-28 13:58
PROVIDERS: Emergency Medicine; Nurse Practitioner; Physician Assistant; Physician Assistant Surgical; ADMIT Surgery
PROC: 0D1M0Z4 Bypass Descending Colon to Cutaneous, Open Approach (ICD-10-PCS; principal; 2016-12-23)
PROC: 0DTN0ZZ Resection of Sigmoid Colon, Open Approach (ICD-10-PCS; principal; 2016-12-23)
DX: K57.20 Diverticulitis of large intestine with perforation and abscess without bleeding (principal); N17.9 Acute kidney failure, unspecified; E87.1 Hypo-osmolality and hyponatremia; I10 Essential (primary) hypertension; B96.20 Unspecified Escherichia coli [E. coli] as the cause of diseases classified elsewhere
CPT/HCPCS: 2NAP; 87070; 87075; CCU; 36415; 74176; 74177; 82436; 87071; 87086; 87147; 88307; 93005; 93010; 96374; 96375; 99291; J0131; J0696; J1170; J1450; J1644; J1885; J2250; J2405; J3010; J7040; J7042; J7060; Q2036

== ENCOUNTER 2016-12-30 13:19 | Inpatient (IN) | payer OTHER ==
[~2016-12-30] VITALS: Ht 167.6 cm; Wt 89.9 kg
[~2016-12-30 13:19] MED LIST: AUGMENTIN 875-1 EACH PO; DIFLUCAN200 M1 PO; DOCUSATE SODIU100 M3 PO; PERCOCET 5-3251 EACH PO; VALSARTAN-HCTZ1 EAC2 PO
--- NOTE | 2016-12-30 13:25 | NUR ---
PT SENT IN BY DR. MARQUES FOR EVAL. OF LEFT LEG SWELLING. PT HAD ABD SURGERY LAST SUNDAY AND NOTICED TODAY THAT HIS LEFT LEG WAS SWOLLEN.
--- NOTE | 2016-12-30 13:43 | NUR ---
PT WITH SWELLING TO LLE, PER PT UP AND MOVING AROUND S/P SURGERY LAST WEEK, VNA SENT PT IN FOR R/O DVT.
--- NOTE | 2016-12-30 14:03 | NUR ---
cont to await us.
--- NOTE | 2016-12-30 14:15 | ED UPPER/LOWER EXTREMITY COMPL ---
History of Present Illness General Chief Complaint: Lower Extremity Problems Stated Complaint: SENT BY JERALD FOR EVAL SWOLLEN LEG S/P SURGERY Source: patient Exam Limitations: no limitations Vital Signs & Intake/Output Vital Signs & Intake/Output Vital Signs Date Time Temp Pulse Resp B/P Pulse O2 O2 Flow FiO2 Ox Delivery Rate 12/30 1850 100.7 88 20 124/72 96 Room Air 12/30 1745 100.7 90 22 123/68 98 Room Air 12/30 1501 97.0 82 18 121/69 96 Room Air 12/30 1324 96.9 90 16 134/68 95 Room Air Allergies Coded Allergies: No Known Allergies (12/23/16) Reconcile Medications Amoxicillin/Potassium Clav (Augmentin 875-125 Tablet) 875 MG-125 MG TABLET 1 TAB PO BID perforated diverticulitis take with food. complete prescription as directed. Docusate Sodium 100 MG CAPSULE 100 MG PO BID PRN CONSTIPATION stool softener available over the counter Fluconazole (Diflucan) 200 MG TABLET 400 MG PO DAILY intra-abdominal infection Oxycodone HCl/Acetaminophen (Percocet 5-325 MG Tablet) 5 MG-325 MG TABLET 1-2 TAB PO Q4-6 PRN PRN pain control do not combine with tylenol. you may take tylenol alternatively. Valsartan/Hydrochlorothiazide (Valsartan-Hctz 160-25 MG Tab) 160 MG-25 MG TABLET 1 TAB PO DAILY HEART (Reported) Triage Note: PT SENT IN BY DR. MARQUES FOR EVAL. OF LEFT LEG SWELLING. PT HAD ABD SURGERY LAST SUNDAY AND NOTICED TODAY THAT HIS LEFT LEG WAS SWOLLEN. Triage Nurses Notes Reviewed? yes Onset: Abrupt Duration: day(s):, constant, continues in ED Timing: recent history Severity: moderate, severe Pain/Injury Location: Left: Leg. No Modifying Factors: none HPI: 46-year-old male comes into emergency room for further evaluation of left leg swelling. Symptoms have been going on for the past few days. Patient reports that he just had a colostomy bag placed by Dr. Marques because he had a ruptured diverticulitis. Patient was discharged yesterday. Denies any chest pain or shortness of breath. Denies any fever chills or flulike symptoms. Left leg has swollen up significantly compared to the right leg. He was sent in by Dr. Marques for a ultrasound to rule out DVT. (BAHMAN PA,LINDEN) Past History Travel History Traveled to [place] past 21 day No Medical History Any Pertinent Medical History? see below for history Neurological: NONE EENT: NONE Cardiovascular: hypertension Respiratory: NONE Gastrointestinal: COLOSTOMY Hepatic: NONE Renal: NONE Musculoskeletal: NONE Psychiatric: NONE Endocrine: NONE History of MRSA: No History of VRE: No History of CDIFF: No Tetanus Vaccine: Surgical History Surgical History: right knee medial meniscus surgery Psychosocial History Who do you live with Spouse What is your primary language Mosotho Tobacco Use: Never used ETOH Use: denies use Illicit Drug Use: denies illicit drug use Family History Hx Contributory? No (LINDEN DALLAS) Review of Systems Review of Systems Constitutional: Reports: no symptoms. EENTM: Reports: no symptoms. Respiratory: Reports: no symptoms. Cardiovascular: Reports: no symptoms. Gastrointestinal/Abdominal: Reports: no symptoms. Genitourinary: Reports: no symptoms. Musculoskeletal: Reports: see HPI. Skin: Reports: see HPI. Neurological/Psychological: Reports: no symptoms. Hematologic/Endocrine: Reports: no symptoms. Immunological: Reports: no symptoms. All Other Systems: Reviewed and Negative (LINDEN DALLAS) Physical Exam Physical Exam General Appearance: well developed/nourished, mild distress Head: atraumatic Eyes: Bilateral: normal appearance. Ears, Nose, Throat: normal ENT inspection, hearing grossly normal Neck: normal inspection Cardiovascular/Respiratory: no respiratory distress Back: normal inspection Leg Left: swelling, tenderness, pulses intact, erythema left lower leg, Neurologic/Tendon: normal sensation, normal motor functions, normal tendon functions, responds to pain, no evidence tendon injury, no pulse deficit Skin: intact, normal color, warm/dry Lymphatic: no anterior cervical kimo (LINDEN DALLAS) Progress Differential Diagnosis: CHF, contusion, dislocation, DVT, fracture, gout Plan of Care: Orders Procedure Date/time Status Clear Liquid Diet 12/31 B Active PHOSPHORUS 12/31 599 Active MAGNESIUM 12/31 599 Active CBC WITHOUT DIFFERENTIAL 12/31 599 Active BASIC ELECTROLYTES PLUS BUN&CR 12/31 599 Active Nothing by Mouth 12/30 D Complete Patient Data 12/307 Active Code Status 12/30 2306 Active VRE ACTIVE SURVIELLANCE 12/31 2231 Active ACTIVE SURVEILLANCE NARES 03/18 2232 Active URINE COLLECTION FROM OR 12/30 2221 Active TRUNK AREA OR SPEC 12/30 2221 Active FingerStick- Glucose 12/30 1950 Active BLOOD CULTURE 12/30 1505 Active LACTIC ACID 12/30 1505 Complete C-REACTIVE PROTEIN 12/30 1505 Complete COMPREHENSIVE METABOLIC PANEL 12/30 1505 Complete CBC WITHOUT DIFFERENTIAL 12/30 1505 Complete Intake & Output 12/30 1344 Active Admit to inpatient 12/30 UNK Active VTE Mechanical Prophylaxis 12/30 UNK Active Vital Signs 12/30 UNK Active Holbrook, Insertion/Removal/Asses 12/30 UNK Active Activity/Ambulation 12/30 UNK Active Current Medications Sig/Nhan Start time Last Medication Dose Stop Time Status Admin Fluconazole 400 MG DAILY 12/31 1000 UNVr (Diflucan) Sodium Chloride 200 ML (Normal Saline 0.9%) Meropenem 1 GM IQ8 12/30 231 UNVr (MEROPENEM) Morphine Sulfate 2 MG Q4P PRN 12/30 231 UNVr (Morphine) Morphine Sulfate 4 MG Q4P PRN 12/30 2315 UNVr (Morphine) Ondansetron HCl 4 MG Q6P PRN 12/30 2315 UNVr (Zofran) Sodium Chloride 1,000 ML Q13H 12/30 2315 UNVr (Normal Saline 0.9%) Heparin Sodium 5,000 UNIT Q8 12/30 230 UNVr (Porcine) Laboratory Tests 12/30/16 1805: Lactic Acid Cancelled 12/30/16 1535: Anion Gap 9, Estimated GFR > 60, BUN/Creatinine Ratio 12.5, Glucose 100 H, Lactic Acid 1.2, Calcium 9.2, Total Bilirubin 0.7, AST 58, ALT 47, Alkaline Phosphatase 204 H, C-Reactive Prot, Quant > 9.0 H, Total Protein 6.2 L, Albumin 3.3 L, Globulin 2.9, Albumin/Globulin Ratio 1.1, CBC w Diff MAN DIFF ORDERED, RBC 3.06 L, MCV 95.9 H, MCH 33.1 H, RDW 13.5, MPV 7.4, Gran % 90.2 H, Lymphocytes % 6.7 L, Monocytes % 2.4, Eosinophils % 0.4, Basophils % 0.3, Absolute Granulocytes 11.8 H, Segmented Neutrophils 78 H, Band Neutrophils 11 H, Absolute Lymphocytes 0.9 L, Lymphocytes 7 L, Monocytes 2, Absolute Monocytes 0.3, Absolute Eosinophils 0.1, Absolute Basophils 0, Metamyelocytes 2 H, Platelet Estimate INCREASED, Polychromasia 1+, Anisocytosis 1+, Macrocytic Cells 1+, PUBS MCHC 34.6 Microbiology 12/31 2231 UPPER RESP: Surveillance Culture - ORD 12/31 2231 GI: Surveillance Culture - ORD 12/30 2199 TRUNK/O.R.: Culture & Sensitivity - RECD 12/30 2199 TRUNK/O.R.: Gram Stain - RECD 12/30 2144 URINE OR: Urine Culture - RECD 12/30 1540 BLOOD: Blood Culture - RECD 12/30 1530 BLOOD: Blood Culture - RECD Diagnostic Imaging: Viewed by Me: CT Scan, Ultrasound. Discussed w/RAD: CT Scan, Ultrasound. Radiology Impression: SERVICE DATE: 12/30/16-162 EXAM TYPE: CAT - CT ABD & PELVIS W IV CONTRAST; CT LOWER EXT W IV CONTRAST Addendum: There is moderate edema involving the left scrotal wall. Also noted is a small left hydrocele. This is better visualized on the CT lower extremity scan. Addendum Signed by: MEGAN SCHERER MD 12/30/16 192 EXAMINATION: CT ABDOMEN, PELVIS AND LOWER EXTREMITY WITH CONTRAST. CLINICAL INFORMATION: Left flank and simulating extending to the left leg. COMPARISON: CT abdomen an pelvis 12/23/2016. TECHNIQUE: 5 mm thin axial and 3 mm thin coronal and sagittal reconstructed images of abdomen and pelvis were obtained following IV 94 mL Optiray 320. Dose 442 Subsequently axial 2.5 mm thin images of entire left lower extremity were performed. Dose [id number] FINDINGS: ABDOMEN AND PELVIS: The lung bases are clear. The heart size is normal. There is minimal posterior pleural thickening with tiny left pleural effusion. The heart size is normal. Visualized liver, spleen, pancreas and bilateral adrenal glands are unremarkable. No radiopaque gallstones seen. Both kidneys are normal size, shape and position. No enhancing renal mass, cyst or hydronephrosis seen. There are no radiopaque calculi. Abdominal aorta appears normal caliber. There is a 1.4 cm aortocaval lymph node image 42, series 2. Previously measured 1.2 cm. Postsurgical changes our seen in the mid pelvis with sutures along the rectosigmoid junction/green. A descending colon left lower quadrant colostomy is present. In the left paracolic gutter there is focal air collection and some fluid collection which appears loculated probably a small abscess, image 55 to 65 series 2. More superiorly in the left paracolic gutter there is a moderate fluid collection with air bubbles extending almost to the mid kidney level. It has increased in size since the previous study. It measures approximately 10 cm in craniocaudad length, 9.7 cm in width and approximately 4.4 cm in thickness. These findings could be secondary to colonic leak or increasing abscess. Previously noted left lower quadrant drain has been removed. No free air seen. Rest of the small bowel loops and the descending and transverse colon appears unremarkable. There are postsurgical maximino along the midline extending from mid abdomen 2 the upper pelvis. Imaging through the pelvis reveals unremarkable urinary bladder. No free fluid in the pelvis. No abnormal lymph nodes. Bone windows reveal mild degenerative disc changes with vacuum disc phenomena and spondylosis L5-S1 disc level. LEFT LOWER LEG: There is mild induration and probably cellulitis along the left lateral abdominal wall. Also visualized is moderate cellulitis and fluid collection along the left lateral thigh which extends from the level of proximal femur to the lateral knee and below to the level of ankle. There is moderate cellulitis medially along the ankle as well. There is no suggestion for any abscess at this time. The anterior , medial and posterior compartments of the thigh appear unremarkable. The fascial planes are intact. There is suboptimal contrast in the arterial and venous structures limiting evaluation. No popliteal fossa cyst or mass seen. The left lower leg muscular compartments are unremarkable. No gross bony abnormality seen involving the left femur, tibia, fibula and visualized left ankle. IMPRESSION: Increasing gas bubbles and fluid in lower left quadrant paracolic gutter suspicious of increasing abscess. Slightly superior to left paracolic gutter there is moderate free fluid and some scattered air bubbles which have increased in size from the previous study. Recommend aspiration and if necessary a drainage catheter. Rectosigmoid suture line, descending colon left lower quadrant colostomy are stable. Previously noted left left paracolic gutter drain has been removed. Tiny left pleural fluid with bilateral posterior pleural thickening. Moderate cellulitis/superficial edema involving left lateral thigh at the level of proximal femur and extending inferiorly to the ankle. Also visualized is mild edema in the medial calf and moderate edema in the medial left ankle. Results were called to NITZA Sifuentes by phone at 6:25 AM, SERVICE DATE: 12/30/16 EXAM TYPE: US - US-UNILATERAL VENOUS DOPPLER EXAMINATION: US TRIPLEX LOWER EXTREMITY, LEFT CLINICAL INFORMATION: Left lower extremity edema and swelling. COMPARISON: None TECHNIQUE: Color-flow triplex imaging with spectral analysis and compression Doppler were performed on the left lower extremity. FINDINGS: Respiratory variation, normal compression and augmented flow are noted throughout the lower extremity. The visualized common femoral vein, superficial femoral vein, profunda femoral vein, popliteal vein and midcalf peroneal and posterior tibial venous segments show no evidence of deep venous thrombosis. There is no Esparza's cyst. IMPRESSION: Normal triplex scan without evidence of deep venous thrombosis involving the left lower extremity. Comments: SERVICE DATE: 12/30/16 EXAM TYPE: US - US-UNILATERAL VENOUS DOPPLER EXAMINATION: US TRIPLEX LOWER EXTREMITY, LEFT CLINICAL INFORMATION: Left lower extremity edema and swelling. COMPARISON: None TECHNIQUE: Color-flow triplex imaging with spectral analysis and compression Doppler were performed on the left lower extremity. FINDINGS: Respiratory variation, normal compression and augmented flow are noted throughout the lower extremity. The visualized common femoral vein, superficial femoral vein, profunda femoral vein, popliteal vein and midcalf peroneal and posterior tibial venous segments show no evidence of deep venous thrombosis. There is no Esparza's cyst. IMPRESSION: Normal triplex scan without evidence of deep venous thrombosis involving the left lower extremity. DICTATED BY: TRACY DUARTE MD DATE/TIME DICTATED:12/30/161451 HAND TUBE WINDER:NEIL DATE/TIME TRANSCRIBED:12/30/161451 (LINDEN DALLAS) Departure Departure Disposition: STILL A PATIENT Condition: Stable Clinical Impression Primary Impression: Postoperative intra-abdominal abscess Secondary Impressions: Cellulitis of lower extremity Referrals: MARZENA SAMPSON,ORALAI Kee (PCP/Family) Departure Forms: Customer Survey General Discharge Information OR/GI Note Spoke With: JERALD SAMPSON,RONALDO [place] ED Treatment Decision: DONNELL ROSEN requires urgent operative management or an emergent procedure that cannot be performed in the Emergency Room setting. Patient will require surgery. IV antibiotics. Patient go back to the OR. High risk. Transport To: [facility] (LINDEN DALLAS) PA/CARDIAC EXERCISE SPECIALIST Co-Sign Statement Statement: ED Attending supervision documentation- [] I saw and evaluated the patient. I have also reviewed all the pertinent lab results and diagnostic results. I agree with the findings and the plan of care as documented in the PA's/CARDIAC EXERCISE SPECIALIST's documentation. [X] I have reviewed the ED Record and agree with the PA's/CARDIAC EXERCISE SPECIALIST's documentation. [] Additions or exceptions (if any) to the PAs/CARDIAC EXERCISE SPECIALIST's note and plan are summarized below: [] (MAIN WRIGHT DO)
--- NOTE | 2016-12-30 14:56 | ULTRASOUND REPORT ---
EXAMINATION: US TRIPLEX LOWER EXTREMITY, LEFT CLINICAL INFORMATION: Left lower extremity edema and swelling. COMPARISON: None TECHNIQUE: Color-flow triplex imaging with spectral analysis and compression Doppler were performed on the left lower extremity. FINDINGS: Respiratory variation, normal compression and augmented flow are noted throughout the lower extremity. The visualized common femoral vein, superficial femoral vein, profunda femoral vein, popliteal vein and midcalf peroneal and posterior tibial venous segments show no evidence of deep venous thrombosis. There is no Esparza's cyst. IMPRESSION: Normal triplex scan without evidence of deep venous thrombosis involving the left lower extremity.
[2016-12-30 15:43] LABS: ABSOLUTE BASOPHIL COUNT 0 /CUMM (0.0-0.2); ABSOLUTE EOSINOPHIL COUNT 0.1 /CUMM (0.0-0.7); ABSOLUTE GRANULOCYTE CT 11.8 /CUMM (1.4-6.5); ABSOLUTE LYMPH COUNT 0.9 /CUMM (1.2-3.4); ABSOLUTE MONOCYTE COUNT 0.3 /CUMM (0.10-0.60); BASOPHIL % 0.3 % (0.0-2.0); EOSINOPHIL % 0.4 % (0-5); GRANULOCYTE % 90.2 % (42.2-75.2); HEMATOCRIT 29.3 % (42-52); MEAN CORPUSCULAR HGB 33.1 PG (27.0-31.0); MEAN CORPUSCULAR HGB CONC 34.6 G/DL (33.0-37.0); MEAN CORPUSCULAR VOLUME 95.9 FL (80.0-94.0); MEAN PLATELET VOLUME 7.4 FL (7.4-10.4); PLATELET COUNT 415 /CUMM (130-400); RBC DISTRIBUTION WIDTH 13.5 % (11.5-14.5); RED BLOOD CELL CT 3.06 /CUMM (4.70-6.10)
--- NOTE | 2016-12-30 15:45 | NUR ---
SPOKE TO [facility] IN [facility], PT REQUEST TURKEY AND CHEESE SANDWICH ON WHITE BREAD WITH LAWRENCE. NO LETTUCE AND NO TOMATO.
--- NOTE | 2016-12-30 15:47 | NUR ---
SURG PA AT BEDSIDE.
--- NOTE | 2016-12-30 16:00 | NUR ---
SANDWICH GIVEN TO PT.CLEARED TO EAT/DRINK BY PA.
--- NOTE | 2016-12-30 17:15 | NUR ---
IN ROOM WHILE PT AT CT, EMOTIONAL CRYING. ALLOWED TO VENT AND EMOTIONAL SUPPORT GIVEN. PT REMAINS AT CT.
--- NOTE | 2016-12-30 17:28 | NUR ---
RETURNED FROM CT.
--- NOTE | 2016-12-30 17:55 | NUR ---
PA AWARE OF TEMP, WILL MONITOR FOR ELEVATION/ NO INCREASE IN REDNESS NOTED TO L LEG.
--- NOTE | 2016-12-30 18:31 | CT SCAN REPORT ---
EXAMINATION: CT ABDOMEN, PELVIS AND LOWER EXTREMITY WITH CONTRAST. CLINICAL INFORMATION: Left flank and simulating extending to the left leg. COMPARISON: CT abdomen an pelvis 12/23/2016. TECHNIQUE: 5 mm thin axial and 3 mm thin coronal and sagittal reconstructed images of abdomen and pelvis were obtained following IV 94 mL Optiray 320. Dose 442 Subsequently axial 2.5 mm thin images of entire left lower extremity were performed. Dose [id number] FINDINGS: ABDOMEN AND PELVIS: The lung bases are clear. The heart size is normal. There is minimal posterior pleural thickening with tiny left pleural effusion. The heart size is normal. Visualized liver, spleen, pancreas and bilateral adrenal glands are unremarkable. No radiopaque gallstones seen. Both kidneys are normal size, shape and position. No enhancing renal mass, cyst or hydronephrosis seen. There are no radiopaque calculi. Abdominal aorta appears normal caliber. There is a 1.4 cm aortocaval lymph node image 42, series 2. Previously measured 1.2 cm. Postsurgical changes our seen in the mid pelvis with sutures along the rectosigmoid junction/green. A descending colon left lower quadrant colostomy is present. In the left paracolic gutter there is focal air collection and some fluid collection which appears loculated probably a small abscess, image 55 to 65 series 2. More superiorly in the left paracolic gutter there is a moderate fluid collection with air bubbles extending almost to the mid kidney level. It has increased in size since the previous study. It measures approximately 10 cm in craniocaudad length, 9.7 cm in width and approximately 4.4 cm in thickness. These findings could be secondary to colonic leak or increasing abscess. Previously noted left lower quadrant drain has been removed. No free air seen. Rest of the small bowel loops and the descending and transverse colon appears unremarkable. There are postsurgical maximino along the midline extending from mid abdomen 2 the upper pelvis. Imaging through the pelvis reveals unremarkable urinary bladder. No free fluid in the pelvis. No abnormal lymph nodes. Bone windows reveal mild degenerative disc changes with vacuum disc phenomena and spondylosis L5-S1 disc level. LEFT LOWER LEG: There is mild induration and probably cellulitis along the left lateral abdominal wall. Also visualized is moderate cellulitis and fluid collection along the left lateral thigh which extends from the level of proximal femur to the lateral knee and below to the level of ankle. There is moderate cellulitis medially along the ankle as well. There is no suggestion for any abscess at this time. The anterior, medial and posterior compartments of the thigh appear unremarkable. The fascial planes are intact. There is suboptimal contrast in the arterial and venous structures limiting evaluation. No popliteal fossa cyst or mass seen. The left lower leg muscular compartments are unremarkable. No gross bony abnormality seen involving the left femur, tibia, fibula and visualized left ankle. IMPRESSION: Increasing gas bubbles and fluid in lower left quadrant paracolic gutter suspicious of increasing abscess. Slightly superior to left paracolic gutter there is moderate free fluid and some scattered air bubbles which have increased in size from the previous study. Recommend aspiration and if necessary a drainage catheter. Rectosigmoid suture line, descending colon left lower quadrant colostomy are stable. Previously noted left left paracolic gutter drain has been removed. Tiny left pleural fluid with bilateral posterior pleural thickening. Moderate cellulitis/superficial edema involving left lateral thigh at the level of proximal femur and extending inferiorly to the ankle. Also visualized is mild edema in the medial calf and moderate edema in the medial left ankle. Results were called to NITZA Sifuentes by phone at 6:25 AM
--- NOTE | 2016-12-30 18:41 | NUR ---
SURG PA AT BEDSIDE WOULD LIKE PT NPO, DR MARQUES IS ON HIS WAY IN. PT NOW REPORTS REDDENED AREA TO BACK SINCE POST OP DAY 1. LARGE AREA OF REDNESS TO L FLANK AREA. 10X10 AREA. PER MUCH IMPROVED FROM WHILE INPATIENT. PT VOIDS WITHOUT DIFF. AREA RED WARM NOT SWOLLEN OR RASHY.
--- NOTE | 2016-12-30 19:11 | NUR ---
DR. MARQUES AT BEDSIDE.
--- NOTE | 2016-12-30 19:19 | NUR ---
RECIEVED REPORT FROM RN YONI. SURGICAL PA AT BEDSIDE MARKING SITE OF REDNESS WITH THIS RN. DIFLUCAN CONTINUES TO INFUSE.
--- NOTE | 2016-12-30 19:35 | NUR ---
IN TO SPEAK WITH PT ABOUT POC AT THIS TIME.
--- NOTE | 2016-12-30 20:07 | History & Physical ---
COMFORT BHATTI 12/30/16 1950: General Information and HPI MD Statement: I have seen and personally examined DONNELL ROSEN and documented this H&P. The patient is a 46 year old M who presented with a patient stated chief complaint of []. Source of Information: patient, family Exam Limitations: no limitations History of Present Illness: Patient is a 46 year old male with a past medical history significant for hypertension who was discharged yesterday from [facility] after being hospitalized for perforated sigmoid diverticulitis with peritonitis. He underwent a Ehrnandez's procedure on 12/23/16. His hospital course was complicated by a left flank cellulitis which resolved with IV antibiotic and IV antifungal. He was discharged on 12/29/16 on Augmentin and Diflucan. Today, he was seen by visiting nurses for routine ostomy care. During their visit, he mentioned his left leg was swollen, sore and red. After examination, VNA called Dr. Marques who then instructed to have patient present to ED for a DVT evaluation. He denied fever, chills, CP/SOB, N/V, dysuria or cough. His DVT study was negative for clot. A CT of the abd/pelvis and left lower extremity was performed, revealing a 10 cm intraabdominal collection and a second smaller collection inferiorly. His left lower extremity revealed severe soft tissue swelling consistent with cellulitis. He was given Ceftaz/Flagyl/Diflucan in the ED. Temperature was 100F and WBC was found to be 13k from 11.8k yesterday. Allergies/Medications Allergies: Coded Allergies: No Known Allergies (12/23/16) Home Med list Amoxicillin/Potassium Clav (Augmentin 875-125 Tablet) 875 MG-125 MG TABLET 1 TAB PO BID perforated diverticulitis take with food. complete prescription as directed. Docusate Sodium 100 MG CAPSULE 100 MG PO BID PRN CONSTIPATION stool softener available over the counter Fluconazole (Diflucan) 200 MG TABLET 400 MG PO DAILY intra-abdominal infection Oxycodone HCl/Acetaminophen (Percocet 5-325 MG Tablet) 5 MG-325 MG TABLET 1-2 TAB PO Q4-6 PRN PRN pain control do not combine with tylenol. you may take tylenol alternatively. Valsartan/Hydrochlorothiazide (Valsartan-Hctz 160-25 MG Tab) 160 MG-25 MG TABLET 1 TAB PO DAILY HEART (Reported) Past History Travel History Traveled to [place] past 21 day No Medical History Neurological: NONE EENT: NONE Cardiovascular: hypertension Respiratory: NONE Gastrointestinal: diverticulitis, COLOSTOMY Hepatic: NONE Renal: NONE Musculoskeletal: NONE Psychiatric: NONE Endocrine: NONE History of MRSA: No History of VRE: No History of CDIFF: No Tetanus Vaccine: Surgical History Surgical History: right knee medial meniscus surgery, hernandez's procedure Past Family/Social History Psychosocial History ETOH Use: denies use Illicit Drug Use: denies illicit drug use Review of Systems Review of Systems Constitutional: Denies: chills, fever, malaise, weakness. Exam & Diagnostic Data Last 24 Hrs of Vital Signs/I&O Vital Signs Date Time Temp Pulse Resp B/P Pulse O2 O2 Flow FiO2 Ox Delivery Rate 12/30 1850 100.7 88 20 124/72 96 Room Air 12/30 1745 100.7 90 22 123/68 98 Room Air 12/30 1501 97.0 82 18 121/69 96 Room Air 12/30 1324 96.9 90 16 134/68 95 Room Air Intake & Output 12/30 1600 12/30 0800 12/30 0000 Intake Total Output Total 150 Balance -150 Output, Urine 150 Patient 185 lb Weight Physical Exam Skin left lower extremity with blanchable erythema from left lateral mid thigh extending to anterior surface down to dorsum of foot. Edema noted from mid thigh to foot as well. Tender to deep palpation. Cardiovascular Regular Rate, Normal S1, Normal S2, No Murmurs, Gallops, Rubs Lungs Clear to Auscultation, Normal Air Movement Abdomen Soft, No Tenderness, left flank with erythema Extremities palpable DP pulses amber. Feet warm. Thigh compartment and calf compartment soft to left leg. Sensation/motor exam grossly intact. Assessment/Plan Assessment: 46 year old male with hypertension POD #7 s/p Hernandez's procedure for perforated sigmoid diverticulitis with peritonitis with hospital course complicated by left flank cellulitis treated with IV Ceftriaxone/Flagyl/Diflucan discharged on oral Augmentin/Diflucan now presenting to ED with a 10 cm x9 cm x4 cm intraabdominal abscess in left retroperitoneal space as well as left lower extremity cellulitis. WBC 13k Plan: Admit to Dr. Marques's service. OR tonight for I&D left flank and I&D left leg. IVF. Was given Diflucan/Ceftaz/Flagyl in ED- will continue post operatively as well. NPO. HSQ once reaches floor. ICU admission. As Ranked By This Provider Problem List: 1. Postoperative intra-abdominal abscess Core Measures/Miscellaneous Acute Coronary Syndrome ACS Diagnosis: No Cerebrovascular Accident CVA/TIA Diagnosis: No Congestive Heart Failure CHF Diagnosis: No Venous Thromboembolism VTE Risk Factors: Age > 40, Surgery No [facility] V[facility] prophylaxis d/t: No contraindications No VTE Pharm Prophylaxis d/t: No contraindications VTE Diagnosis: No VTE Type: NONE VTE Confirmed by (Test): NONE Severe Sepsis Severe Sepsis Present: No Septic Shock Septic Shock Present: No Miscellaneous Documentation Attending Case Discussed With: Dr. Marques Primary Care Physician: ORALIA IVAN MD Patient sees these Specialists Dr. Gonzalez Level of Patient Care: Critical Care (CRI) RONALDO MARQUES MD 12/30/16 1911: General Information and HPI MD Statement: I have seen and personally examined DONNELL ROSEN and documented this H&P. The patient is a 46 year old M who presented with a patient stated chief complaint of []. Past History Surgical History Surgical History: right knee medial meniscus surgery, hernandez's procedure Exam & Diagnostic Data Last 24 Hrs of Vital Signs/I&O Vital Signs Date Time Temp Pulse Resp B/P Pulse O2 O2 Flow FiO2 Ox Delivery Rate 12/30 1850 100.7 88 20 124/72 96 Room Air 12/30 1745 100.7 90 22 123/68 98 Room Air 12/30 1501 97.0 82 18 121/69 96 Room Air 12/30 1324 96.9 90 16 134/68 95 Room Air Intake & Output 12/30 1600 12/30 0800 12/30 0000 Intake Total Output Total 150 Balance -150 Output, Urine 150 Patient 185 lb Weight Physical Exam General Appearance Alert, Oriented X3, Cooperative, Mild Distress Body Front and Back (Adult) 1) cellulitis 2) 3) 4) Last 24 Hrs of Labs/Dimitri: Laboratory Tests 12/30/16 1805: Lactic Acid Cancelled 12/30/16 1535: Anion Gap 9, Estimated GFR > 60, BUN/Creatinine Ratio 12.5, Glucose 100 H, Lactic Acid 1.2, Calcium 9.2, Total Bilirubin 0.7, AST 58, ALT 47, Alkaline Phosphatase 204 H, C-Reactive Prot, Quant > 9.0 H, Total Protein 6.2 L, Albumin 3.3 L, Globulin 2.9, Albumin/Globulin Ratio 1.1, CBC w Diff MAN DIFF ORDERED, RBC 3.06 L, MCV 95.9 H, MCH 33.1 H, RDW 13.5, MPV 7.4, Gran % 90.2 H, Lymphocytes % 6.7 L, Monocytes % 2.4, Eosinophils % 0.4, Basophils % 0.3, Absolute Granulocytes 11.8 H, Segmented Neutrophils 78 H, Band Neutrophils 11 H, Absolute Lymphocytes 0.9 L, Lymphocytes 7 L, Monocytes 2, Absolute Monocytes 0.3, Absolute Eosinophils 0.1, Absolute Basophils 0, Metamyelocytes 2 H, Platelet Estimate INCREASED, Polychromasia 1+, Anisocytosis 1+, Macrocytic Cells 1+, PUBS MCHC 34.6 Microbiology 12/30 2220 URINE OR: Urine Culture - COLB 12/30 222 TRUNK/O.R.: Culture & Sensitivity - COLB 12/30 222 TRUNK/O.R.: Gram Stain - COLB 12/30 1540 BLOOD: Blood Culture - RECD 12/30 1530 BLOOD: Blood Culture - RECD Diagnostic Data Other Results CT images dated 12/30/2016 of the abdomen and pelvis as well as left leg were personally reviewed and reviewed with a radiologist over the phone. Findings show retroperitoneal abscess left side behind the left kidney. In the leg there is diffuse edema without abscess. I then reviewed CT scan images from 12/23 and 12/26 which correlated to preoperative and postoperative imaging. Prior to surgery there was gaseous infiltration of the colonic mesentery. Post operatively there was trace fluid and gas in the retroperitoneum correlating to the newly developed abscess on current imaging. Attending MD Review Statement Attending Statement Attending MD Statement: examined this patient, discuss w/resident/PA/SCHEDULING ASSISTANT, discussed with family, reviewed EMR data (avail), reviewed images Attending Assessment/Plan: 46-year-old male 1 week post Hernandez's procedure for a necrotizing colonic infection. Now presents with recurrent infection the retroperitoneum related to a moderate-sized abscess. There is also newly developed cellulitis of the left leg. The cellulitis of the leg is quite extensive and hot however he does not have a lot of pain or tenderness to suggest fasciitis. Nevertheless given the rapidity of the onset of his disease, one must be concerned about a necrotizing soft tissue infection that originated from his retroperitoneum and extended inferiorly. I looked at the images and discussed the matter with the radiologist over the phone. By imaging, there is no definitive communication between the 2 processes. Plan will be to take him to the operating room emergently for drainage of the retroperitoneal process surgically. This will be approached through a flank incision with drain placement. I will then explore his leg to rule out fasciitis of the lower extremity. Debridement will be undertaken should it be discovered. Patient's informed the risk of the operation including bleeding infection and the morbidity required to eradicate a necrotizing soft tissue infection. He is in agreement to proceed.
--- NOTE | 2016-12-30 20:24 | NUR ---
PER PT WILL BE GOING TO OR TONIGHT
--- NOTE | 2016-12-30 20:57 | NUR ---
PT TRANSPORTED TO OR.
--- NOTE | 2016-12-30 22:47 | Operative Report ---
Operative/Inv Procedure Report Surgery Date: 12/30/16 Name of Procedure: 1. Drainage of retroperitoneal abscess, left. 2. Incision and closure of left leg Pre-Operative Diagnosis: 1. Retroperitoneal abscess 2. Necrotizing fasciitis of the leg Post-Operative Diagnosis: 1. Retroperitoneal abscess 2. Cellulitis left leg Estimated Blood Loss: scant Surgeon/Equipment Planner: JERALD SAMPSON,RONALDO Eugene/Martine GODDARD Anesthesia: general endotracheal tube Drains: [place] left flank Microbiology: Retroperitoneal purulence for culture Operative/Procedure Note Note: After consent is brought to the operating room and laid supine. Gen. anesthesia was obtained and then he was placed on a beanbag with left side up positioning. His left flank and back and entire left lower extremity was then prepped and draped. Looking at the imaging from his preoperative CT scan, I marked an area correlating to the region where the peritoneal abscess would be located. It was just between the ribs and iliac crest. A transverse incision was then made sharply and the subcutaneous tissues dissected with cautery. We came down to the external oblique muscle and divided a portion of it. The remainder of the muscles and split with retractors placed. We then split the lax to muscle layers and retracted them using appendiceal retractors. We then entered the retroperitoneum and encountered 100 mL of gross purulence. A specimen was taken for culture. There was some necrotic tissue which was bluntly debrided and added to the culture specimen. The wound was then irrigated with normal saline. Hemostasis achieved with direct pressure and packing. Then placed a [place] drain into the wound cavity through the muscles. It was sutured to the skin with 3-0 nylon to keep it in place. A portion of the skin was then closed with interrupted 3-0 nylon sutures. We then turned attention to the leg. On the lateral superior portion of the calf, an incision was made sharply. We came to the subcutaneous tissues tissues with cautery until we identified the investing fascia. It was glistening white without evidence of necrosis. I then bluntly probed the wound and the deep tissues were densely adherent to the fascia. There is no turbid fluid to suggest a fasciitis. Concluded that portion of the operation by loosely approximating the skin with 3-0 nylon. The skin was then packed between the sutures with iodoform gauze. Sterile dressings were applied to each wound sponge and needle counts are correct. He tolerated procedure well and was brought to the intensive care unit per routine given the time of night. CC: MARZENA SAMPSON,ORALIA Kee
[2016-12-31 01:00] VITALS: BP 130/83
--- NOTE | 2016-12-31 02:17 | NUR ---
12/30/16 2300 PATIENT TO [facility][id number] FROM OR FOR PACU CARE- SEE PACU SHEET 12/31/16 PATIENT TRANSITIONED TO [facility] CARE- ALERT AND ORIENTED X3, SKIN PINK, WARM AND DRY, PAIN REPORTED AT 01/22 AFTER EARLIER PAIN MED, [facility] SINUS WITHOUT ECTOPY, HEART RATE 70'S TO 80'S/MIN, O2 AT 2L/MIN VIA NC- CONTINUOUS O2 SAT 97 TO 98%, BREATHE SOUNDS CLEAR BILATERALLY, ABDOMEN DISTENDED BUT SOFT- ABDOMINAL DRESSING CLEAN, DRY AND INTACT, LEFT FLANK DRESSING MODERATE AMT PINK DRAINAGE NOTED BUT OUTER DRESSING DRY AND INTACT, LLE DRESSING ALSO WITH MODERATE AMT PINK DRAINAGE BUT DRESSING DRY AND INTACT, LLE +2 EDEMA, REDDISH IN COLOR, WARM TO TOUCH, PALPABLE PEDAL PULSE, COLOSTOMY STOMA PINK, SOFT BROWN STOOL IN INTACT COLOSTOMY APPLIANCE, MENDOZA TO GRAVITY DRAINAGE WITH CLEAR YELLOW UO IN GOOD AMTS, PATIENT ORIENTED TO [facility] SURROUNDINGS/ROUTINE- ENCOURAGED TO VERBALIZE ANY QUESTIONS/CONCERNS
[2016-12-31 05:25] LABS: ABSOLUTE BASOPHIL COUNT 0 /CUMM (0.0-0.2); ABSOLUTE EOSINOPHIL COUNT 0.1 /CUMM (0.0-0.7); ABSOLUTE GRANULOCYTE CT 7.9 /CUMM (1.4-6.5); ABSOLUTE MONOCYTE COUNT 0.5 /CUMM (0.10-0.60); BASOPHIL % 0.1 % (0.0-2.0); EOSINOPHIL % 0.8 % (0-5); GRANULOCYTE % 83.2 % (42.2-75.2); HEMATOCRIT 26.9 % (42-52); MEAN CORPUSCULAR HGB 33.3 PG (27.0-31.0); MEAN CORPUSCULAR HGB CONC 34.4 G/DL (33.0-37.0); MEAN PLATELET VOLUME 7.7 FL (7.4-10.4); PLATELET COUNT 346 /CUMM (130-400); RBC DISTRIBUTION WIDTH 13.2 % (11.5-14.5); RED BLOOD CELL CT 2.77 /CUMM (4.70-6.10); WHITE BLOOD CELL COUNT 9.5 /CUMM (4.8-10.8)
--- NOTE | 2016-12-31 05:56 | PN- General Surgery ---
See Addendum Subjective Subjective: POD #0 s/p I&D left flank and incision to left lower extremity for a RP abscess and cellulitis to the left leg. He reports no pain to his left flank or leg and has been keeping his leg elevate as instructed. Denies CP/SOB, N/V, F/C. Yet to ambulate. Voiding via lemos catheter. Flank and leg dressing changed by RN early this morning. Objective Vital Signs and I&Os Vital Signs Date Time Temp Pulse Resp B/P Pulse O2 O2 Flow FiO2 Ox Delivery Rate 12/31 0100 98.0 76 16 130/83 98 Nasal 2.0L Cannula 12/31 0013 98 Nasal 2.0L Cannula 12/30 2348 97 Nasal 2.0L Cannula 12/30 1850 100.7 88 20 124/72 96 Room Air 12/30 1745 100.7 90 22 123/68 98 Room Air 12/30 1501 97.0 82 18 121/69 96 Room Air 12/30 1324 96.9 90 16 134/68 95 Room Air Intake & Output 12/31 0800 12/31 0000 12/30 1600 12/30 0800 12/30 0000 12/29 1600 Intake Total 1130 Output Total 420 150 Balance 710 -150 Intake, IV 1120 Intake, Oral 10 Output, Urine 420 150 Patient 198 lb 185 lb Weight Physical Exam: Gen: AAOx3 in NAD Cor: S1+S2+ Lungs: CTA amber Abd: soft, NT, ND, +BS x4. Left flank dressing C/D/I. Buck in place. Midline incision with surrounding reactive erythema, wound open and draining serous fluid. Ostomy pink, viable, stool and gas in bag. Ext: LLE edema noted, warm to touch. Unable to discern erythema due to OR prep on leg. Palpable DP/PT pulse to left foot. Incision to left lateral calf intact. Packing in place. Results Last 48 Hours of Labs: Laboratory Tests 12/31 12/30 0425 1805 Chemistry Sodium Pending Potassium Pending Chloride Pending Carbon Dioxide Pending Anion Gap Pending BUN Pending Creatinine Pending BUN/Creatinine Ratio Pending Lactic Acid Cancelled Phosphorus Pending Magnesium Pending Hematology CBC w Diff NO MAN DIFF REQ WBC (4.8 - 10.8 /CUMM) 9.5 RBC (4.70 - 6.10 /CUMM) 2.77 L Hgb (14.0 - 18.0 G/DL) 9.2 L Hct (42 - 52 %) 26.9 L MCV (80.0 - 94.0 FL) 97.0 H MCH (27.0 - 31.0 PG) 33.3 H RDW (11.5 - 14.5 %) 13.2 Plt Count (130 - 400 /CUMM) 346 MPV (7.4 - 10.4 FL) 7.7 Gran % (42.2 - 75.2 %) 83.2 H Lymphocytes % (20.5 - 51.1 %) 10.4 L Monocytes % (1.7 - 9.3 %) 5.5 Eosinophils % (0 - 5 %) 0.8 Basophils % (0.0 - 2.0 %) 0.1 Absolute Granulocytes (1.4 - 6.5 /CUMM) 7.9 H Absolute Lymphocytes (1.2 - 3.4 /CUMM) 1.0 L Absolute Monocytes (0.10 - 0.60 /CUMM) 0.5 Absolute Eosinophils (0.0 - 0.7 /CUMM) 0.1 Absolute Basophils (0.0 - 0.2 /CUMM) 0 PUBS MCHC (33.0 - 37.0 G/DL) 34.4 18 1535 Chemistry Sodium (137 - 145 mmol/L) 134 L Potassium (3.5 - 5.1 mmol/L) 3.7 Chloride (98 - 107 mmol/L) 91 L Carbon Dioxide (22 - 30 mmol/L) 33 H Anion Gap (5 - 16) 9 BUN (9 - 20 mg/dL) 10 Creatinine (0.7 - 1.2 mg/dL) 0.8 Estimated GFR (>60 ml/min) > 60 BUN/Creatinine Ratio (7 - 25 %) 12.5 Glucose (65 - 99 mg/dL) 100 H Lactic Acid (0.7 - 2.1 mmol/L) 1.2 Calcium (8.4 - 10.2 mg/dL) 9.2 Total Bilirubin (0.2 - 1.3 mg/dL) 0.7 AST (17 - 59 U/L) 58 ALT (21 - 72 U/L) 47 Alkaline Phosphatase (< 127 U/L) 204 H C-Reactive Prot, Quant (<1.0 mg/dL) > 9.0 H Total Protein (6.3 - 8.2 g/dL) 6.2 L Albumin (3.5 - 5.0 g/dL) 3.3 L Globulin (1.9 - 4.2 gm/dL) 2.9 Albumin/Globulin Ratio (1.1 - 2.2 %) 1.1 Hematology CBC w Diff MAN DIFF ORDERED WBC (4.8 - 10.8 /CUMM) 13.0 H RBC (4.70 - 6.10 /CUMM) 3.06 L Hgb (14.0 - 18.0 G/DL) 10.1 L Hct (42 - 52 %) 29.3 L MCV (80.0 - 94.0 FL) 95.9 H MCH (27.0 - 31.0 PG) 33.1 H RDW (11.5 - 14.5 %) 13.5 Plt Count (130 - 400 /CUMM) 415 H MPV (7.4 - 10.4 FL) 7.4 Gran % (42.2 - 75.2 %) 90.2 H Lymphocytes % (20.5 - 51.1 %) 6.7 L Monocytes % (1.7 - 9.3 %) 2.4 Eosinophils % (0 - 5 %) 0.4 Basophils % (0.0 - 2.0 %) 0.3 Absolute Granulocytes (1.4 - 6.5 /CUMM) 11.8 H Segmented Neutrophils (42.2 - 75.2 %) 78 H Band Neutrophils (0.0 - 5.0 %) 11 H Absolute Lymphocytes (1.2 - 3.4 /CUMM) 0.9 L Lymphocytes (20.5 - 51.1 %) 7 L Monocytes (1.7 - 9.3 %) 2 Absolute Monocytes (0.10 - 0.60 /CUMM) 0.3 Absolute Eosinophils (0.0 - 0.7 /CUMM) 0.1 Absolute Basophils (0.0 - 0.2 /CUMM) 0 Metamyelocytes (0.0 - 1.0 %) 2 H Platelet Estimate (ADEQUATE) INCREASED Polychromasia 1+ Anisocytosis 1+ Macrocytic Cells 1+ PUBS MCHC (33.0 - 37.0 G/DL) 34.6 Assessment/Plan Assessment/Plan A: POD #0 s/p I&D left flank with concomitant incision to left lower extremity to R/O fasciitis in setting of LLE cellulitis; AVSS. Plan: Continue meropenem/Diflucan. Will likely remove lemos later today. OOB and ambulate as tolerated. Will advance diet. IVF to stay in place until tolerating PO well. Packing to be eventually changed to LLE, likely starting Sunday. ? transfer out of ICU today. Core Measures/Miscellaneous Venous Thromboembolism VTE Risk Factors: Age > 40, Surgery VTE Contraindications: No Contraindications VTE Diagnosis: No VTE Type: NONE VTE Confirmed by (Test): NONE Beta Jennifer Is Beta Jennifer a Home Med? No Antibiotics Is Patient on Antibiotics? Yes
--- NOTE | 2016-12-31 06:22 | NUR ---
0430 LEFT FLANK DRESSING SATURATED- SOME DARK RED DRAINAGE AT LOWER ASPECT OF DRESSING- DRESSING REMOVED, OSKAR DRAIN IN PLACE- D.S.D TO SITE, LLE DRESSING ALSO SATURATED- DRESSING REMOVED, PACKING MID-INCISION IN PLACE- D.S.D. TO SITE, VS STABLE, O2 DECREASED TO 1L/MIN WITH O2 SATS MAINTAINED AT 97%, PATIENT TAKING AND TOLERATING CLEAR LIQUIDS PO 0500 PATIENT SEEN AND EXAMINED BY EDWINA GODDARD 0600 O2 SAT 99%- O2 DISCONTINUED 0630 WHILE ASLEEP O2 SAT INTERMITTENTLY DROPS TO 88%, O2 VIA NC REPLACED AT 1L/MIN WITH O2 SAT MAINTAINED AT 96% WHILE ASLEEP
[2016-12-31 08:00] VITALS: BP 110/70
[2016-12-31 16:00] VITALS: BP 120/80
[2016-12-31 22:27] VITALS: BP 142/86
[2017-01-01 06:48] VITALS: BP 136/80
--- NOTE | 2017-01-01 07:56 | PN- General Surgery ---
See Addendum Subjective Subjective: NAEO. Patient without new c/o. Denies any pain. He states that the swelling in his leg is almost gone compared to what it was before he came to [facility]. Tolerating PO without n/v. Good ostomy output. Denies CP/SOB. Objective Vital Signs and I&Os Vital Signs Date Time Temp Pulse Resp B/P Pulse O2 O2 Flow FiO2 Ox Delivery Rate 01/01 0648 98.4 90 18 136/80 12/31 2227 98.0 78 18 142/86 99 Room Air 12/31 1600 98.2 80 20 120/80 97 Room Air 12/31 0800 98.6 74 16 110/70 98 Room Air Intake & Output 01/01 0800 01/01 0000 12/31 1600 12/31 0800 12/31 0000 12/30 1600 Intake Total 720 1200 2231 500 8601 Output Total 2490 1700 1650 865 420 150 Balance -1770 -500 150 -159 710 -150 Intake, IV 600 600 533 400 7743 Intake, Oral 879 129 5862 200 10 Output, Stool 150 300 250 Output, Urine 2340 1700 1350 615 420 150 Patient 198 lb 185 lb Weight Physical Exam: General: NAD, comfortable, A&Ox3 Chest: CTAB, no wheezes, no rales. Heart S1S2 normal. Abdomen: soft, nontender, nondistended. Ostomy in place with good amount of stool in bag. Stoma pink and viable. +Bowel sounds x4 quadrants. Left flank wound with erika in place and draining pus with small amount of erythema surrounding the incision. Otherwise, lines of erythema have regressed significantly. Ext: No LLE swelling. Left lateral calf incision with erika in place, serosanguineous drainage and no surrounding erythema. No calve swelling/TTP, neurovascularly intact bilateral lower extremities. Current Medications: Current Medications Sig/Nhan Start time Last Medication Dose Route Stop Time Status Admin Fluconazole 400 MG DAILY 01/01 1000 AC Sodium Chloride 200 ML IV Fluconazole 400 MG DAILY 12/31 1000 DC 12/31 Sodium Chloride 200 ML IV 1008 Heparin Sodium 5,000 UNIT Q8 12/31 1400 AC 01/01 (Porcine) SC 0612 Heparin Sodium 5,000 UNIT Q8 12/30 2359 DC 12/31 (Porcine) SC 0606 Hydrochlorothiazide 25 MG DAILY 01/01 1000 AC PO Hydrochlorothiazide 25 MG DAILY 12/31 1000 DC 12/31 PO 1121 Losartan Potassium 50 MG DAILY 01/01 1000 AC PO Losartan Potassium 50 MG DAILY 12/31 1000 DC 12/31 PO 1121 Meropenem 1 GM Q8H 12/31 1030 AC 01/01 IV 0231 Meropenem 1 GM Q8H 12/30 2359 DC 12/31 IV 0812 Morphine Sulfate 2 MG Q4P PRN 12/31 1030 AC IV Morphine Sulfate 4 MG Q4P PRN 12/31 1030 AC 12/31 IV 1829 Morphine Sulfate 2 MG Q4P PRN 12/30 2315 DC 12/31 IV 0824 Morphine Sulfate 4 MG Q4P PRN 12/30 2315 DC 12/31 IV 0415 Ondansetron HCl 4 MG Q6P PRN 12/31 1030 AC IV Ondansetron HCl 4 MG Q6P PRN 12/30 2315 DC IV Oxycodone/ 1 TAB Q4P PRN 12/31 1030 AC Acetaminophen PO Oxycodone/ 2 TAB Q4P PRN 12/31 1030 AC 01/01 Acetaminophen PO 0629 Oxycodone/ 1 TAB Q4P PRN 12/31 0600 DC Acetaminophen PO Oxycodone/ 2 TAB Q4P PRN 12/31 0600 DC Acetaminophen PO Potassium Phosphate 15 mMol ONCE ONE 12/31 0845 DC 12/31 Sodium Chloride 250 ML IV 12/31 1248 1119 Sodium Chloride 1,000 ML Q13H 12/31 1030 AC 01/01 IV 0618 Sodium Chloride 1,000 ML Q13H 12/30 2315 DC 12/30 IV 2327 Results Last 48 Hours of Labs: Laboratory Tests 01/01 12/31 12/30 0620 0425 1805 Chemistry Sodium (137 - 145 mmol/L) Pending 132 L Potassium (3.5 - 5.1 mmol/L) Pending 3.8 Chloride (98 - 107 mmol/L) Pending 93 L Carbon Dioxide (22 - 30 mmol/L) Pending 30 Anion Gap (5 - 16) Pending 8 BUN (9 - 20 mg/dL) Pending 8 L Creatinine (0.7 - 1.2 mg/dL) Pending 0.9 Estimated GFR (>60 ml/min) > 60 BUN/Creatinine Ratio (7 - 25 %) Pending 8.9 Lactic Acid Cancelled Phosphorus (2.5 - 4.5 mg/dL) Pending 3.8 Magnesium (1.6 - 2.3 mg/dL) Pending 1.9 Hematology CBC w Diff Pending NO MAN DIFF REQ WBC (4.8 - 10.8 /CUMM) Pending 9.5 RBC (4.70 - 6.10 /CUMM) Pending 2.77 L Hgb (14.0 - 18.0 G/DL) Pending 9.2 L Hct (42 - 52 %) Pending 26.9 L MCV (80.0 - 94.0 FL) Pending 97.0 H MCH (27.0 - 31.0 PG) Pending 33.3 H RDW (11.5 - 14.5 %) Pending 13.2 Plt Count (130 - 400 /CUMM) Pending 346 MPV (7.4 - 10.4 FL) Pending 7.7 Gran % (42.2 - 75.2 %) 83.2 H Lymphocytes % (20.5 - 51.1 %) 10.4 L Monocytes % (1.7 - 9.3 %) 5.5 Eosinophils % (0 - 5 %) 0.8 Basophils % (0.0 - 2.0 %) 0.1 Absolute Granulocytes (1.4 - 6.5 /CUMM) 7.9 H Absolute Lymphocytes (1.2 - 3.4 /CUMM) 1.0 L Absolute Monocytes (0.10 - 0.60 /CUMM) 0.5 Absolute Eosinophils (0.0 - 0.7 /CUMM) 0.1 Absolute Basophils (0.0 - 0.2 /CUMM) 0 PUBS MCHC (33.0 - 37.0 G/DL) Pending 34.4 12/30 1535 Chemistry Sodium (137 - 145 mmol/L) 134 L Potassium (3.5 - 5.1 mmol/L) 3.7 Chloride (98 - 107 mmol/L) 91 L Carbon Dioxide (22 - 30 mmol/L) 33 H Anion Gap (5 - 16) 9 BUN (9 - 20 mg/dL) 10 Creatinine (0.7 - 1.2 mg/dL) 0.8 Estimated GFR (>60 ml/min) > 60 BUN/Creatinine Ratio (7 - 25 %) 12.5 Glucose (65 - 99 mg/dL) 100 H Lactic Acid (0.7 - 2.1 mmol/L) 1.2 Calcium (8.4 - 10.2 mg/dL) 9.2 Total Bilirubin (0.2 - 1.3 mg/dL) 0.7 AST (17 - 59 U/L) 58 ALT (21 - 72 U/L) 47 Alkaline Phosphatase (< 127 U/L) 204 H C-Reactive Prot, Quant (<1.0 mg/dL) > 9.0 H Total Protein (6.3 - 8.2 g/dL) 6.2 L Albumin (3.5 - 5.0 g/dL) 3.3 L Globulin (1.9 - 4.2 gm/dL) 2.9 Albumin/Globulin Ratio (1.1 - 2.2 %) 1.1 Hematology CBC w Diff MAN DIFF ORDERED WBC (4.8 - 10.8 /CUMM) 13.0 H RBC (4.70 - 6.10 /CUMM) 3.06 L Hgb (14.0 - 18.0 G/DL) 10.1 L Hct (42 - 52 %) 29.3 L MCV (80.0 - 94.0 FL) 95.9 H MCH (27.0 - 31.0 PG) 33.1 H RDW (11.5 - 14.5 %) 13.5 Plt Count (130 - 400 /CUMM) 415 H MPV (7.4 - 10.4 FL) 7.4 Gran % (42.2 - 75.2 %) 90.2 H Lymphocytes % (20.5 - 51.1 %) 6.7 L Monocytes % (1.7 - 9.3 %) 2.4 Eosinophils % (0 - 5 %) 0.4 Basophils % (0.0 - 2.0 %) 0.3 Absolute Granulocytes (1.4 - 6.5 /CUMM) 11.8 H Segmented Neutrophils (42.2 - 75.2 %) 78 H Band Neutrophils (0.0 - 5.0 %) 11 H Absolute Lymphocytes (1.2 - 3.4 /CUMM) 0.9 L Lymphocytes (20.5 - 51.1 %) 7 L Monocytes (1.7 - 9.3 %) 2 Absolute Monocytes (0.10 - 0.60 /CUMM) 0.3 Absolute Eosinophils (0.0 - 0.7 /CUMM) 0.1 Absolute Basophils (0.0 - 0.2 /CUMM) 0 Metamyelocytes (0.0 - 1.0 %) 2 H Platelet Estimate (ADEQUATE) INCREASED Polychromasia 1+ Anisocytosis 1+ Macrocytic Cells 1+ PUBS MCHC (33.0 - 37.0 G/DL) 34.6 Assessment/Plan Assessment/Plan 46yo M with recent history of Yossi's procedure no POD#2 s/p left flank and left calve I&D. Patient appears to be progressing well without signs or symptoms of sepsis. Absceses appear to be draining welland improving. - Pain control - IV abx - OOB and ambulate - Reg diet - I/O's - Dressing changes Q shift by RN - f/u cultures - f/u labs - repeat CBC in a.m. - Will d/w attending Core Measures/Miscellaneous Venous Thromboembolism VTE Risk Factors: Age > 40, Surgery VTE Contraindications: No Contraindications VTE Diagnosis: No VTE Type: NONE VTE Confirmed by (Test): NONE Beta Jennifer Is Beta Jennifer a Home Med? No Antibiotics Is Patient on Antibiotics? Yes If Yes: infection
[2017-01-01 08:03] LABS: ABSOLUTE BASOPHIL COUNT 0 /CUMM (0.0-0.2); ABSOLUTE EOSINOPHIL COUNT 0.1 /CUMM (0.0-0.7); ABSOLUTE GRANULOCYTE CT 6.3 /CUMM (1.4-6.5); ABSOLUTE LYMPH COUNT 1.7 /CUMM (1.2-3.4); ABSOLUTE MONOCYTE COUNT 0.4 /CUMM (0.10-0.60); BASOPHIL % 0.4 % (0.0-2.0); EOSINOPHIL % 1.7 % (0-5); GRANULOCYTE % 73.7 % (42.2-75.2); HEMATOCRIT 27.4 % (42-52); MEAN CORPUSCULAR HGB 32.8 PG (27.0-31.0); MEAN CORPUSCULAR HGB CONC 33.6 G/DL (33.0-37.0); MEAN CORPUSCULAR VOLUME 97.4 FL (80.0-94.0); MEAN PLATELET VOLUME 7.9 FL (7.4-10.4); PLATELET COUNT 411 /CUMM (130-400); RBC DISTRIBUTION WIDTH 13.4 % (11.5-14.5); RED BLOOD CELL CT 2.82 /CUMM (4.70-6.10); WHITE BLOOD CELL COUNT 8.5 /CUMM (4.8-10.8)
[2017-01-01 15:36] VITALS: BP 154/100
[2017-01-01 16:46] VITALS: BP 128/82; BP 128/820
[2017-01-01 22:37] VITALS: BP 148/88
[2017-01-02 06:31] VITALS: BP 140/82
[2017-01-02 08:10] LABS: ABSOLUTE BASOPHIL COUNT 0 /CUMM (0.0-0.2); ABSOLUTE EOSINOPHIL COUNT 0.2 /CUMM (0.0-0.7); ABSOLUTE GRANULOCYTE CT 5.8 /CUMM (1.4-6.5); ABSOLUTE LYMPH COUNT 1.7 /CUMM (1.2-3.4); ABSOLUTE MONOCYTE COUNT 0.5 /CUMM (0.10-0.60); BASOPHIL % 0.5 % (0.0-2.0); EOSINOPHIL % 1.9 % (0-5); GRANULOCYTE % 70.9 % (42.2-75.2); HEMATOCRIT 28.6 % (42-52); MEAN CORPUSCULAR HGB 33.3 PG (27.0-31.0); MEAN CORPUSCULAR HGB CONC 34.6 G/DL (33.0-37.0); MEAN CORPUSCULAR VOLUME 96.1 FL (80.0-94.0); MEAN PLATELET VOLUME 7.8 FL (7.4-10.4); PLATELET COUNT 454 /CUMM (130-400); RBC DISTRIBUTION WIDTH 13.3 % (11.5-14.5); RED BLOOD CELL CT 2.98 /CUMM (4.70-6.10); WHITE BLOOD CELL COUNT 8.2 /CUMM (4.8-10.8)
[2017-01-02 08:20] LABS: PT 11.5 SEC (9.4-12.5)
--- NOTE | 2017-01-02 08:29 | PN- General Surgery ---
Subjective Subjective: No complaints. Eager to go home since today is his birthday. Feeling better overall. Left flank dressing changed twice yesterday due to drainage. Tolerating diet. No nausea. Ambulating well. No dizziness. No shortness of breath. No chest pains. Objective Vital Signs and I&Os Vital Signs Date Time Temp Pulse Resp B/P Pulse O2 O2 Flow FiO2 Ox Delivery Rate 01/02 0631 97.7 70 20 140/82 99 Room Air 01/01 2237 97.6 84 20 148/88 94 Room Air 01/01 1646 128/82 01/01 1536 98.7 72 18 154/100 98 Room Air 01/01 0922 90 136/80 Intake & Output 01/02 1600 01/02 0800 01/02 0000 01/01 1600 01/01 0800 01/01 0000 Intake Total 1000 0641 497 1087 Output Total 1600 1075 2490 1700 Balance -600 250 -1770 -500 Intake, IV 525 600 600 Intake, Oral 1000 800 120 600 Output, Stool 75 150 Output, Urine 1600 1000 2340 1700 Patient 198 lb Weight Physical Exam: General - alert & oriented x 3. comfortable. no acute distress. Lungs - clear bilaterally. no w/r/r. Cardiac - s1s2. reg. Abdmen - soft. midline incision approximated with maximino. colostomy bag in place with stool in bag. left flank dressing changed. erika drain in place. sutures in place. dressing saturated with purulent drainage. surrounding erythema nearly resolved. Extremities - warm bilaterally. no c/c/e. left leg dressing changed. scant bloody drainage. sutures in place. nearly resolved erythema. nvi. Results Last 48 Hours of Labs: Laboratory Tests 01/02 01/01 0720 0620 Chemistry Sodium (137 - 145 mmol/L) Pending 134 L Potassium (3.5 - 5.1 mmol/L) Pending 4.6 Chloride (98 - 107 mmol/L) Pending 94 L Carbon Dioxide (22 - 30 mmol/L) Pending 34 H Anion Gap (5 - 16) Pending 6 BUN (9 - 20 mg/dL) Pending 7 L Creatinine (0.7 - 1.2 mg/dL) Pending 0.9 Estimated GFR (>60 ml/min) > 60 BUN/Creatinine Ratio (7 - 25 %) Pending 7.8 Phosphorus (2.5 - 4.5 mg/dL) 4.1 Magnesium (1.6 - 2.3 mg/dL) 1.9 Coagulation PT (9.4 - 12.5 SEC) 11.5 INR (0.90 - 1.17) 1.10 Hematology CBC w Diff NO MAN DIFF REQ NO MAN DIFF REQ WBC (4.8 - 10.8 /CUMM) 8.2 8.5 RBC (4.70 - 6.10 /CUMM) 2.98 L 2.82 L Hgb (14.0 - 18.0 G/DL) 9.9 L 9.2 L Hct (42 - 52 %) 28.6 L 27.4 L MCV (80.0 - 94.0 FL) 96.1 H 97.4 H MCH (27.0 - 31.0 PG) 33.3 H 32.8 H RDW (11.5 - 14.5 %) 13.3 13.4 Plt Count (130 - 400 /CUMM) 454 H 411 H MPV (7.4 - 10.4 FL) 7.8 7.9 Gran % (42.2 - 75.2 %) 70.9 73.7 Lymphocytes % (20.5 - 51.1 %) 20.8 19.6 L Monocytes % (1.7 - 9.3 %) 5.9 4.6 Eosinophils % (0 - 5 %) 1.9 1.7 Basophils % (0.0 - 2.0 %) 0.5 0.4 Absolute Granulocytes (1.4 - 6.5 /CUMM) 5.8 6.3 Absolute Lymphocytes (1.2 - 3.4 /CUMM) 1.7 1.7 Absolute Monocytes (0.10 - 0.60 /CUMM) 0.5 0.4 Absolute Eosinophils (0.0 - 0.7 /CUMM) 0.2 0.1 Absolute Basophils (0.0 - 0.2 /CUMM) 0 0 PUBS MCHC (33.0 - 37.0 G/DL) 34.6 33.6 Assessment/Plan Assessment/Plan This 47 white male POD#10 s/p Yossi's procedure, POD#3 s/p I&D left flank and left calf Tolerating low fiber diet pain controlled with percocet dressings changed f/u labs and final culture results hep sc - dvt ppx discharge to home with services and one more week of antibiotics pending cx results patient seen and d/w Core Measures/Miscellaneous Venous Thromboembolism VTE Risk Factors: Age > 40, Surgery VTE Contraindications: No Contraindications VTE Diagnosis: No VTE Type: NONE VTE Confirmed by (Test): NONE Beta Jennifer Is Beta Jennifer a Home Med? No Antibiotics Is Patient on Antibiotics? Yes If Yes: infection
--- NOTE | 2017-01-02 08:55 | Patient Discharge Instructions ---
Discharge Instructions General Discharge Information You were seen/treated for: Retroperitoneal abscess Cellulitis left leg You had these procedures: Surgery Date: 12/30/16 Name of Procedure: 1. Drainage of retroperitoneal abscess, left. 2. Incision and closure of left leg Watch for these problems: fever>101.3, increased pain, increased redness/swelling/drainage Call Surgeon to remove: Stitches Other wound care: daily and as needed dry guaze dressing changes: left flank left leg Special Instructions: staple and suture removal in the office next week Diet Continue normal diet: No Recommended Diet: Low Residue Additional DIET Information: increased fiber intake in 4-6 weeks Activity Full Activity/No Limits: No Activity Self Limited: Yes Pounds, do NOT lift more than: 10 Other activity limits: no heavy lifting. no strenuous activity. Acute Coronary Syndrome Inclusion Criteria At DC or during hospital stay patient has or had the following: ACS DIAGNOSIS No Discharge Core Measures Meds if any: Prescribed or Continued at Discharge Meds if any: NOT Prescribed or Continued at Discharge Congestive Heart Failure Inclusion Criteria At DC or during hospital stay patient has or had the following: CHF DIAGNOSIS No Discharge Core Measures Meds if any: Prescribed or Continued at Discharge Meds if any: NOT Prescribed or Continued at Discharge Cerebrovascular accident Inclusion Criteria At DC or during hospital stay patient has or had the following: CVA/TIA Diagnosis No Discharge Core Measures Meds if any: Prescribed or Continued at Discharge Meds if any: NOT Prescribed or Continued at Discharge Venous thromboembolism Inclusion Criteria VTE Diagnosis No VTE Type NONE VTE Confirmed by (Test) NONE Discharge Core Measures - Per Current guidelines, there needs to be overlap - treatment for the first 5 days of Warfarin therapy. - If discharged on Warfarin prior to 5 days of - overlap therapy, the patient will need to be - assessed for post discharge needs including - *Post discharge parental anticoagulation - *Warfarin and/or parental anticoagulation education - *Follow up date to check INR post discharge At least 5 days overlap therapy as Inpatient No Meds if any: Prescribed or Continued at Discharge Note: Overlap Therapy is Warfarin and Anticoagulant Meds if any: NOT Prescribed or Continued at Discharge
[2017-01-02 09:04] VITALS: BP 140/82
[2017-01-02] MEDS ORDERED: AUGMENTIN 875-1 EACH PO (12:04)
--- NOTE | 2017-01-10 10:29 | Surgical Discharge Summary ---
Visit Information Visit Dates Admission Date: 12/30/16 Discharge Date: 01/02/17 History of Present Illness Chief Complaint: LEG SWELLING Medical History Blood Transfusion Hx: No Neurological: NONE EENT: NONE Cardiovascular: hypertension Respiratory: NONE Gastrointestinal: diverticulitis, COLOSTOMY Hepatic: NONE Renal: NONE Musculoskeletal: NONE Psychiatric: NONE Endocrine: NONE History of MRSA: No History of VRE: No History of CDIFF: No Isolation History: Standard Tetanus Vaccine: Surgical History Pertinent Surgical History: right knee medial meniscus surgery hernandez's procedure Psychosocial History Where Do You Live? Home Who Do You Live With? Spouse What is Your Primary Language? Guyanese ETOH Use: denies use Review of Systems: SEE ADMIT HP Hospital Course Course Attending Physician: RONALDO MARQUES MD Primary Care Physician: ORALIA IVAN MD Hospital Course: Patient taken emergently to the operating foom for drainage of retroperitoneal abscess. See op dictation. exploration of leg was performed and no faciitis found. He was maintaned on iv abx and tailored to cultures. Cellulitis of leg resolved. He was dicharged home to complete an oral course of abx. Allergies: Coded Allergies: No Known Allergies (12/23/16) Significant Procedures: Drainage of retroperitoneal abscess Disposition Summary Disposition Principal Diagnosis: Retroperitoneal abscess Additional Diagnosis: Left leg cellulitis Discharge Disposition: home health services Discharge Instructions General Discharge Information Code Status: Full Code Patient's Diet: Regular Patient's Activity: no lifting Follow-Up Instructions/Appts: 2 weeks Medications at Discharge Discharge Medications: Stop taking the following medications: Fluconazole (Diflucan) 200 MG TABLET ORAL DAILY Qty = 5 Continue taking these medications: Valsartan/Hydrochlorothiazide (Valsartan-Hctz 160-25 MG Tab) 160 MG-25 MG TABLET 1 Tablet ORAL DAILY Qty = 30 Comments: NOT GIVEN IN HOSPITAL Docusate Sodium (Docusate Sodium) 100 MG CAPSULE 100 Milligram ORAL TWICE DAILY as needed for CONSTIPATION Days = 14 Instructions: stool softener available over the counter Comments: NOT GIVEN IN HOSPITAL Oxycodone HCl/Acetaminophen (Percocet 5-325 MG Tablet) 5 MG-325 MG TABLET 1-2 Tablet ORAL EVERY 4-6 HOURS NEEDED as needed for pain control Qty = 36 Instructions: do not combine with tylenol. you may take tylenol alternatively. Comments: Last Taken: 01/02/17 Time: 10:30 AM Amoxicillin/Potassium Clav (Augmentin 875-125 Tablet) 875 MG-125 MG TABLET 1 Tablet ORAL TWICE DAILY Qty = 6 Instructions: take with food. complete 7 days total (previously filled on 12/29/16) Comments: NOT GIVEN IN HOSPTIAL This prescription has been renewed Copies To: MARZENA SAMPSON,ORALIA Kee
== END 2017-01-02 13:13 | disposition home health service (06) | DRG 856 ==
LOC: ERH 13:19 → ER-OR 13:28 → ERH 13:28 → 2NB 22:25 → CRI 22:25 → ENPENDDIS 22:25 → 2NB 12-31 14:40
PROVIDERS: Nurse Practitioner; Physician Assistant Medical; Physician Assistant Surgical; ADMIT Surgery
PROC: 0W9H00Z Drainage of Retroperitoneum with Drainage Device, Open Approach (ICD-10-PCS; principal; 2016-12-30)
PROC: 0J9P0ZZ Drainage of Left Lower Leg Subcutaneous Tissue and Fascia, Open Approach (ICD-10-PCS; principal; 2016-12-30)
PROC: 0JD80ZZ Extraction of Abdomen Subcutaneous Tissue and Fascia, Open Approach (ICD-10-PCS; principal; 2016-12-30)
DX: T81.4XXA Infection following a procedure, initial encounter (principal); K65.1 Peritoneal abscess; L03.116 Cellulitis of left lower limb; I10 Essential (primary) hypertension; Z93.3 Colostomy status
CPT/HCPCS: 2NBP; 2NBSP; 87070; 87075; 87184; CCU; 36415; 74177; 82436; 87040; 87086; 87147; 96374; 96375; C9399; J0131; J0696; J1170; J1450; J1644; J2185; J2250; J3010; J7040

== ENCOUNTER 2017-05-08 02:16 | Inpatient (IN) | payer OTHER ==
[~2017-05-08] VITALS: Ht 167.6 cm; Wt 69.9 kg
--- NOTE | 2017-05-08 16:42 | Admission Core Measures ---
Admission Meds I reviewed the following Meds: Current Medications Sig/Nhan Start time Last Medication Dose Stop Time Status Admin Ampicillin Sodium/ 3,000 MG ONCE 05/08 0000 NR Sulbactam Sodium 05/08 2359 (Unasyn) Sodium Chloride 100 ML (Normal Saline 0.9%) Acute Coronary Syndrome Inclusion Criteria ACS Diagnosis No Inpatient Core Measures LDL Reminder: If No, please order W/I first 24hr of stay Congestive Heart Failure Inclusion Criteria CHF Diagnosis No Cerebrovascular accident Inclusion Criteria CVA/TIA Diagnosis No Inpatient Core Measures Bedside Swallow Eval Reminder: If BSE failed, place ST order Antithrombotic Reminder: Order Antithrombotic Medication by end of day 2 Antithrombotic Reminder: Document Reason Antithrombotic Not ordered by end of day 2 AFIB/Flutter Reminder: If Present, add to problem list AFIB/Flutter Reminder: Order Anticoag Medication for pts with AFIB/Flutter Atherosclerosis Reminder: If Present, add to problem list LDL Reminder: If No, please order W/I first 24hr of stay PT Order Reminder: If No, please order Venous thromboembolism Inpatient Core Measures VTE Risk Factors: Age > 40, [facility] prophylaxis d/t No contraindications No VTE Pharm Prophylaxis d/t No contraindications Inclusion Criteria - Per Current guidelines, there needs to be overlap - treatment for the first 5 days of Warfarin therapy. - Parenteral Anticoagulation (IV or SC) needs to be - given along with Warfarin therapy. VTE Diagnosis No VTE Type NONE VTE Confirmed by (Test) NONE Problem List As ranked by this Provider includes Assessment & Plan 1. History of colostomy reversal
[2017-05-08 18:35] VITALS: BP 144/96
--- NOTE | 2017-05-08 19:34 | NUR ---
NURSING NOTE: PATIENT ARRIVED TO FLOOR AT 1834, VIA STRETCHER, TRANSFERRED TO HOSPITAL BED INDEPENDENTLY, PATIENT ALERT AND ORIENTED, ON ROOM AIR. PATIENT COMPLAINS OF 10/10 LEFT SIDED ABDOMINAL PAIN/CRAMPING AT THIS TIME. MEDICATED PER EMAR FOR PAIN AND REPOSITIONED. VITALS WITHIN DEFINED PARAMETERS, BULK DRESSING INTACT, SCANT BLOODY DRAINAGE NOTED AND OUTLINED. IV IN RAC, FLUIDS RUNNING, LUNGS CLEAR, SKIN INTACT. FAMILY AT BEDSIDE, WILL CONTINUE TO MONITOR.
--- NOTE | 2017-05-08 19:57 | PN- General Surgery ---
Subjective Subjective: Patient is generally comfortable with mild crampy abdominal pain. Overall he is feeling well after his surgery. Objective Vital Signs and I&Os Vital Signs Date Time Temp Pulse Resp B/P B/P Pulse O2 O2 Flow FiO2 Mean Ox Delivery Rate 05/08 1835 98.5 92 18 144/96 95 Room Air Physical Exam: Well-developed well-nourished no apparent distress. HEENT: Atraumatic, extraocular motion intact Neck: Supple, no lymphadenopathy Respiratory: No respiratory distress Abdomen: Abdomen is soft, mildly tender. No distention. Dressing with small amount of serous sanguinous staining on the inferior right side of the dressing. The remainder of the dressing is clean. There are no bowel sounds. Extremities: No edema, no calf pain Neuro: Alert and oriented x3 Psych: Mood affect normal, normal memory normal judgment. Skin: Warm and dry, no rash on exposed skin Assessment/Plan Assessment/Plan Postop day #0 status post colostomy closure Nothing by mouth. IV fluids. Strict ins and outs. Heparin subcutaneous for DVT prophylaxis. Preoperative anabiotic with Unasyn 2 more doses. Pain medication as needed, IV morphine. Await return of bowel function. Check a.m. labs. Reenforce dressing when necessary, dressing change for update 2. Core Measures/Miscellaneous Venous Thromboembolism VTE Risk Factors: Age > 40, Surgery VTE Contraindications: No Contraindications VTE Diagnosis: No VTE Type: NONE VTE Confirmed by (Test): NONE Beta Jennifer Is Beta Jennifer a Home Med? No Antibiotics Is Patient on Antibiotics? Yes If Yes: prophylaxis
--- NOTE | 2017-05-08 20:23 | NUR ---
NURSING NOTE: PATIENT COMPLAINING OF 9/10 PAIN, MORPHINE GIVEN PER EMAR WITH NO RELIEF. NITZA MONTGOMERY INFORMED, INSTRUCTED TO GIVE TORODOL. PA TO RE-EVALUATE EMAR.
[2017-05-08 22:34] VITALS: BP 108/66
[2017-05-09 01:53] VITALS: BP 100/70
[2017-05-09 04:30] VITALS: BP 100/70
--- NOTE | 2017-05-09 07:50 | PN- Student ---
TATY,TIANA 05/09/17 0741: Subjective Subjective: POST-OP DAY #1 Pt is a 47 year old male who is POD #1 of an exploratory laparotomy & colostomy closure on 05/08 with a history of hartmans procedure & hypertension who is doing well with some constant pain localized in suprapubic and lower abdominal region of an 8/ that is being managed with pain medications. Pt states that the pain is accompanied by soreness from the procedure. He is tolerating ice chips, with no nausea/vomiting, and denies any belching or hiccups. He is voiding through a lemos catheter without any complaints, and has not passed flatus. He states that he feels bloated and is anticipating ambulating later today to assist with passing flatus. ROS Respiratory: Denies any SOB or difficulty breathing. Cardiac: Denies any chest pain or palpitations. GI: Denies any cramping, but describes pain in lower abdominal area & suprapubic region, states that he feels bloated and the need to pass flatus. : Denies any burning or iritation with lemos catheter. MSK: Denies any joint pain or back pain. Pt mentioned that his left anterolateral hip region feels numb from previous surgery 3 mos prior of a peritoneal abscess removal. Objective Objective: Vital Signs Date Time Temp Pulse Resp B/P B/P Pulse O2 O2 Flow FiO2 Mean Ox Delivery Rate 05/09 0430 98.4 73 20 100/70 97 Room Air 05/09 0153 98.3 81 20 100/70 97 Room Air 05/08 2234 98.2 77 20 108/66 96 Room Air 05/08 1835 98.5 92 18 144/96 95 Room Air General: Alert & oriented x3. Appropriate mood & affect. Respiratory: CABL. No wheezes, rhales, or ronchi. No accessory muscle use. Cardiac: S1S2. No murmurs, rubs, or gallops. No edema present in LE. GI: Mildly tender, mildly distended, - guarding, + BS in all 4 quadrants. Bandage along midline is mildly saturated with sanguinous fluid but is intact. Bandage on left lateral abdomen is c/d/i. No erythema surrounding. MSK: Denies any calf tenderness with palpation. LE sensation in tact. Plantarfelxion and dorsiflexion strength 5/5 BL. Stocking compression devices are applied. Skin is warm and dry throughout extremities. Assessment/Plan Assessment: This patient is a 47 y/o male who is POD #1 of an exploratory laparotomy & colostomy reversal who complains of lower abdominal/suprapubic pain and bloating of an 8/10 that is being managed with pain medications. Plan: - Remove lemos catheter. - Promote out of bed ambulation, weight bear as tolerated. - Awating bowel function for advancement of diet to clears. - Heparin SC & SCD's DVT prophylaxis. - Promote use of incentive spirometer. - Will discuss w/ attending. APRIL DOMINGUEZ 05/09/17 0950: Resident Review Statement Other Findings: See NITZA progress note
[2017-05-09 08:30] VITALS: BP 100/60
[2017-05-09 08:47] LABS: ABSOLUTE BASOPHIL COUNT 0 /CUMM (0.0-0.2); ABSOLUTE EOSINOPHIL COUNT 0 /CUMM (0.0-0.7); ABSOLUTE GRANULOCYTE CT 7.1 /CUMM (1.4-6.5); ABSOLUTE LYMPH COUNT 1.2 /CUMM (1.2-3.4); ABSOLUTE MONOCYTE COUNT 0.7 /CUMM (0.10-0.60); BASOPHIL % 0.4 % (0.0-2.0); EOSINOPHIL % 0.1 % (0-5); HEMATOCRIT 34.7 % (42-52); MEAN CORPUSCULAR HGB 29.5 PG (27.0-31.0); MEAN CORPUSCULAR HGB CONC 34.2 G/DL (33.0-37.0); MEAN CORPUSCULAR VOLUME 86.5 FL (80.0-94.0); MEAN PLATELET VOLUME 9.4 FL (7.4-10.4); PLATELET COUNT 158 /CUMM (130-400); RBC DISTRIBUTION WIDTH 13.2 % (11.5-14.5); RED BLOOD CELL CT 4.02 /CUMM (4.70-6.10); WHITE BLOOD CELL COUNT 9.1 /CUMM (4.8-10.8)
--- NOTE | 2017-05-09 09:49 | PN- General Surgery ---
See Addendum Subjective Subjective: Has some abdominal pain, though controlled with pain medications. No flatus or bowel movement. No out of bed yet. Requesting Holbrook catheter removal. No nausea or vomiting. Also notes he no longer takes blood pressure medication at home, though noted in his med rec Objective Vital Signs and I&Os Vital Signs Date Time Temp Pulse Resp B/P B/P Pulse O2 O2 Flow FiO2 Mean Ox Delivery Rate 05/09 0430 98.4 73 20 100/70 97 Room Air 05/09 0153 98.3 81 20 100/70 97 Room Air 05/08 2234 98.2 77 20 108/66 96 Room Air 05/08 1835 98.5 92 18 144/96 95 Room Air Intake & Output 05/09 1600 05/09 0805/09 0000 05/08 1600 05/08 0800 05/08 0000 Intake Total 1100 450 Output Total 550 Balance 1100 -100 Intake, IV 1100 400 Intake, Oral 0 50 Output, Urine 550 Patient 154 lb Weight Weight Reported by Patient Measurement Method Physical Exam: GEN: NAD CARD: S1S2 RRR PULM: CTAB ABD: Dressings with some serosanguineous staining, quiet bowel sounds, tender to palpation, soft EXT: calves soft nt, ALPS on bl Current Medications: Current Medications Sig/Nhan Start time Last Medication Dose Route Stop Time Status Admin Acetaminophen 1,000 MG Q6 05/08 2359 AC 05/09 IV 05/09 1801 0554 Ampicillin Sodium/ 3,000 MG Q6 05/08 2200 DC 05/09 Sulbactam Sodium IV 05/09 0629 0618 Sodium Chloride 100 ML Ampicillin Sodium/ 3,000 MG ONCE 05/08 0000 DC Sulbactam Sodium IV 05/08 2359 Sodium Chloride 100 ML Dextrose/Sodium 1,000 ML Q8H 05/08 1845 AC 05/09 Chloride IV 0214 Famotidine 20 MG BID 05/08 2200 AC 05/09 IV 0929 Fentanyl Citrate 200 MCG .STK-MED ONE 05/08 1001 DC IM 05/08 1002 Heparin Sodium 5,000 UNIT Q8 05/09 0600 AC 05/09 (Porcine) SC 0552 Hydrochlorothiazide 25 MG DAILY 05/09 1000 DC PO Hydromorphone HCl 0.4 MG Q3P PRN 05/08 2030 AC IV Hydromorphone HCl 0.6 MG Q3P PRN 05/08 2030 AC IV Hydromorphone HCl 1 MG Q2-3 HRS NEEDED.. 05/08 2030 AC 05/09 IV 0855 Hydromorphone HCl 2 MG .STK-MED ONE 05/08 1001 DC IM 05/08 1002 Ketorolac 30 MG Q6-PRN PRN 05/08 2200 AC 05/09 Tromethamine IV 0214 Losartan Potassium 50 MG DAILY 05/09 1000 DC PO Midazolam HCl 2 MG .STK-MED ONE 05/08 1001 DC IM 05/08 1002 Morphine Sulfate 2 MG Q2-3 HRS NEEDED.. 05/08 184 DC IV Morphine Sulfate 4 MG Q2-3 HRS NEEDED.. 05/08 184 DC IV Morphine Sulfate 6 MG Q2-3 HRS NEEDED.. 05/08 1845 DC 05/08 IV 1859 Ondansetron HCl 4 MG Q6P PRN 05/08 184 AC IV Results Last 48 Hours of Labs: Laboratory Tests 05/09 0736 Chemistry Sodium (137 - 145 mmol/L) 140 Potassium (3.5 - 5.1 mmol/L) 3.8 Chloride (98 - 107 mmol/L) 107 Carbon Dioxide (22 - 30 mmol/L) 25 Anion Gap (5 - 16) 8 BUN (9 - 20 mg/dL) 7 L Creatinine (0.7 - 1.2 mg/dL) 0.9 Estimated GFR (>60 ml/min) > 60 BUN/Creatinine Ratio (7 - 25 %) 7.8 Hematology CBC w Diff NO MAN DIFF REQ WBC (4.8 - 10.8 /CUMM) 9.1 RBC (4.70 - 6.10 /CUMM) 4.02 L Hgb (14.0 - 18.0 G/DL) 11.9 L Hct (42 - 52 %) 34.7 L MCV (80.0 - 94.0 FL) 86.5 MCH (27.0 - 31.0 PG) 29.5 RDW (11.5 - 14.5 %) 13.2 Plt Count (130 - 400 /CUMM) 158 MPV (7.4 - 10.4 FL) 9.4 Gran % (42.2 - 75.2 %) 78.0 H Lymphocytes % (20.5 - 51.1 %) 13.6 L Monocytes % (1.7 - 9.3 %) 7.9 Eosinophils % (0 - 5 %) 0.1 Basophils % (0.0 - 2.0 %) 0.4 Absolute Granulocytes (1.4 - 6.5 /CUMM) 7.1 H Absolute Lymphocytes (1.2 - 3.4 /CUMM) 1.2 Absolute Monocytes (0.10 - 0.60 /CUMM) 0.7 H Absolute Eosinophils (0.0 - 0.7 /CUMM) 0 Absolute Basophils (0.0 - 0.2 /CUMM) 0 PUBS MCHC (33.0 - 37.0 G/DL) 34.2 Assessment/Plan Assessment/Plan A: 47M POD #1 status post ex-lap/colostomy closure, history of Hartmanns for perforated diverticulitis, stable without bowel function. P: - DVT ppx -NPO, IVF. Advance to clears? - prn pain meds - OOB, ambulate - DC Holbrook, due to void -DC antihypertensive meds as patient does not take these at home and blood pressure is WNL - will dw attending Core Measures/Miscellaneous Venous Thromboembolism VTE Risk Factors: Age > 40, Surgery VTE Contraindications: No Contraindications VTE Diagnosis: No VTE Type: NONE VTE Confirmed by (Test): NONE Beta Jennifer Is Beta Jennifer a Home Med? No Antibiotics Is Patient on Antibiotics? Yes If Yes: prophylaxis
--- NOTE | 2017-05-09 12:48 | NUR ---
SHIFT NOTE: PT A/V/OX3. ON RA, LUNGS CLEAR. SKIN INTACT. MIDLINE DRESSING WITH SCANT BLOODY DRAINAGE NOTED. L SIDED ABD DRESSING CLEAN DRY & INTACT. +BS X4 QUADRANTS. PT IS NOT PASSING GAS AT THIS TIME BUT STATES HE FEELS THINGS MOVING. REMAINS NPO. TOLERATING ICE CHIPS. REJI DC'D AT 0900, DTV BETWEEN 1500 AND 1700. URINAL PROVIDED. #20 RAC INFUSING D5NS @ 125ML/HR. PT AMBULATED WITH THIS RN, STEADY GAIT, EDUCATED TO CALL IF DIZZY/LIGHTHEADED, OR FEELING UNSTEADY. MEDICATED WITH PRN PAIN MEDICATIONS AND SCHEDULED IV TYLENOL PER EMAR. SAFETY PRECAUTIONS MAINTAINED.
[2017-05-09 14:25] VITALS: BP 100/58
--- NOTE | 2017-05-09 15:52 | NUR ---
PT CONTINUALLY C/O 8-9/10 PAIN TO ABDOMEN POST SURGERY. PT RECEIVING PRN DILAUDID 1MG Q2HRS AND TORADOL AND SCHEDULED TYLENOL. SURGICAL PA APRIL NOTIFIED OF PTS PAIN LEVEL. NO NEW CHANGES AT THIS TIME. VITAL SIGNS STABLE. SAFETY PRECAUTIONS MAINTAINED.
[2017-05-09 22:45] VITALS: BP 104/60
--- NOTE | 2017-05-10 00:27 | NUR ---
ALERT AND ORIENTED X 3. ON ROOM AIR. DENIES SHORTNESS OF BREATH VITAL SIGNS STABLE. DENIES CHEST PAIN. + PULSES. DENIES NUMBNESS/TINGLING SCANT BLOODY DRAINAGE TO MIDLINE DSG. MEDICATION GIVEN FOR DISCOMFORT STEADY GAIT WHEN AMBULATING. HYPOACTIVE BOWEL SOUNDS. SAFETY MAINTAINED
[2017-05-10 06:50] VITALS: BP 118/60
--- NOTE | 2017-05-10 07:41 | PN- General Surgery ---
See Addendum Subjective Subjective: Reports bloody bm this morning. Had crampy pain prior to passing the blood, but feels better now. Ambulating well. No dizziness. No shortness of breath. No chest pains. Voiding well. Objective Vital Signs and I&Os Vital Signs Date Time Temp Pulse Resp B/P B/P Pulse O2 O2 Flow FiO2 Mean Ox Delivery Rate 05/10 0650 98.4 76 20 118/60 96 Room Air 05/09 2245 98.9 79 19 104/60 94 Room Air 05/09 1425 99.0 67 18 100/58 97 Room Air 05/09 1115 Room Air Room Air 05/09 0830 97.9 78 18 100/60 97 Room Air Intake & Output 05/10 0800 05/10 0000 05/09 1600 05/09 0800 05/09 0000 05/08 1600 Intake Total 1000 1100 450 Output Total 300 550 Balance -300 1000 1100 -100 Intake, IV 1000 1100 400 Intake, Oral 0 0 50 Output, Urine 300 550 Patient 154 lb Weight Weight Reported by Patient Measurement Method Physical Exam: General - alert & oriented x 3. comfortable. no acute distress. Lungs - clear bilaterally. no w/r/r. Cardiac - s1s2. reg. Abdomen - soft. flat. dressings removed. midline incision approximated with maximino. old stoma site with packing (removed). no erythema. Extremities - warm bilaterally. no c/c/e. calves soft and nontender b/l. calves soft and nontender b/l. Current Medications: Current Medications Sig/Nhan Start time Last Medication Dose Route Stop Time Status Admin Acetaminophen 1,000 MG Q6 05/08 2359 DC 05/09 IV 05/09 1801 1834 Dextrose/Sodium 1,000 ML Q8H 05/08 1845 AC 05/10 Chloride IV 0400 Famotidine 20 MG BID 05/08 2200 AC 05/09 IV 2243 Heparin Sodium 5,000 UNIT Q8 05/09 0600 AC 05/10 (Porcine) SC 0628 Hydrochlorothiazide 25 MG DAILY 05/09 1000 DC PO Hydromorphone HCl 0.4 MG Q3P PRN 05/08 2030 AC IV Hydromorphone HCl 0.6 MG Q3P PRN 05/08 2030 AC IV Hydromorphone HCl 1 MG Q2-3 HRS NEEDED.. 05/08 2030 AC 05/10 IV 0700 Ketorolac 30 MG Q6-PRN PRN 05/08 2200 AC 05/10 Tromethamine IV 0620 Losartan Potassium 50 MG DAILY 05/09 1000 DC PO Ondansetron HCl 4 MG Q6P PRN 05/08 1845 AC IV Results Last 48 Hours of Labs: Laboratory Tests 05/09 0736 Chemistry Sodium (137 - 145 mmol/L) 140 Potassium (3.5 - 5.1 mmol/L) 3.8 Chloride (98 - 107 mmol/L) 107 Carbon Dioxide (22 - 30 mmol/L) 25 Anion Gap (5 - 16) 8 BUN (9 - 20 mg/dL) 7 L Creatinine (0.7 - 1.2 mg/dL) 0.9 Estimated GFR (>60 ml/min) > 60 BUN/Creatinine Ratio (7 - 25 %) 7.8 Hematology CBC w Diff NO MAN DIFF REQ WBC (4.8 - 10.8 /CUMM) 9.1 RBC (4.70 - 6.10 /CUMM) 4.02 L Hgb (14.0 - 18.0 G/DL) 11.9 L Hct (42 - 52 %) 34.7 L MCV (80.0 - 94.0 FL) 86.5 MCH (27.0 - 31.0 PG) 29.5 RDW (11.5 - 14.5 %) 13.2 Plt Count (130 - 400 /CUMM) 158 MPV (7.4 - 10.4 FL) 9.4 Gran % (42.2 - 75.2 %) 78.0 H Lymphocytes % (20.5 - 51.1 %) 13.6 L Monocytes % (1.7 - 9.3 %) 7.9 Eosinophils % (0 - 5 %) 0.1 Basophils % (0.0 - 2.0 %) 0.4 Absolute Granulocytes (1.4 - 6.5 /CUMM) 7.1 H Absolute Lymphocytes (1.2 - 3.4 /CUMM) 1.2 Absolute Monocytes (0.10 - 0.60 /CUMM) 0.7 H Absolute Eosinophils (0.0 - 0.7 /CUMM) 0 Absolute Basophils (0.0 - 0.2 /CUMM) 0 PUBS MCHC (33.0 - 37.0 G/DL) 34.2 Assessment/Plan Assessment/Plan This 47M is POD #2 s/p ex-lap/colostomy closure, history of Hartmanns for perforated diverticulitis, passed some blood this morning from below currently npo / ivf. ?try clears awaiting further bowel function check labs hep sc - dvt ppx ?hold toradol continue oob/ambulation packing changed will d/w Core Measures/Miscellaneous Venous Thromboembolism VTE Risk Factors: Age > 40, Surgery VTE Contraindications: No Contraindications VTE Diagnosis: No VTE Type: NONE VTE Confirmed by (Test): NONE Beta Jennifer Is Beta Jennifer a Home Med? No Antibiotics Is Patient on Antibiotics? Yes If Yes: prophylaxis
--- NOTE | 2017-05-10 17:57 | Operative Report ---
Operative/Inv Procedure Report Surgery Date: 05/08/17 Name of Procedure: Reversal of colostomy Rodrigues's procedure Pre-Operative Diagnosis: Colostomy after Rodrigues's procedure Post-Operative Diagnosis: Same Estimated Blood Loss: scant Surgeon/Bread Molder: DALTON SAMPSON,CLAY GODDARD Anesthesia: general endotracheal tube Operative/Procedure Note Note: Patient was positioned supine, after induction of general anesthesia, a tap block was performed, IV antibiotics were given Holbrook catheter was placed and then she was repositioned into lithotomy and I irrigated her rectal stump with dilute Betadine solution til clear, no large stool balls, but bilateral hemorhoids noted. Then I sutured shut the colostomy at the skin with silk suture. Then her abdomen was prepped and draped in usual sterile fashion. The midline scar from the Rodrigues's was re-incised. This was deepened to the fascia which was quite thick with scar. Next we had to lyse extensive adhesions mostly between the small bowel loops themselves and between the bowel loops and the deeper peritoneum including the bladder. In so doing, the rectal stump was identified, it appeared supple, we checked its trajectoyry with a EEA sizer. We then turned our efforts to disconnect the colostomy from the abdominal wall first by incising around it through the skin deepening that circumferentially paying care not to injure the mesentery and then after maxing out the dissection from the outside we then completed it from the inside. The very end of the ostomy was trimmed and then engaged with the pursestring device having sized it for a 31 EEA. The EEA anvil was tied, and the surrounding bowel wall was checked for takes an extra scar which was sharply excised. Then the Bookwalter retractor was set up to make room retracting the small bowel up, then an EEA was advanced through the anus, which as mentioned had the hemorrhoids and had to the be gently dilated and mated with the anvil and fired, both donuts were complete, the integrity of the anastomosis was checked with the proctoscope by gently pumping air across the anastomosis, with a bowel occluded proximally, while submerged under irrigation to check for leaks after several checks was confirmed there were none. The abdomen was then irrigated and closed in layers using 1 Maxon for the fascia, followed by interrupted Vicryl sutures subdermally, especially at the umbilcus, in similar fashion the colostomy site was closed in layers using Vicryl for the peritoneum and then the Maxon for the fascia this site was wicked with iodoform. Both incisions were reapproximated at the skin level with maximino and then covered with gauze and island dressings. EBL minimal lap and sponge counts correct wound expectancy was clean- contaminated, IV fluids crystalloid complications none, patient tolerated the procedure well and was returned to the recovery room in satisfactory condition.
[2017-05-10 22:29] VITALS: BP 136/84
[2017-05-11 06:43] VITALS: BP 130/82
--- NOTE | 2017-05-11 07:49 | PN- General Surgery ---
See Addendum Subjective Subjective: some abd pain, worse after OOB most of yesterday, some dark bloody BMs last evening/overnight, no cp/sob/n/v/dizziness, nasreen clr liquids but taking it slow- easily feels full Objective Vital Signs and I&Os Vital Signs Date Time Temp Pulse Resp B/P B/P Pulse O2 O2 Flow FiO2 Mean Ox Delivery Rate 05/11 0643 98.8 68 20 130/82 95 Room Air 05/10 2229 98.4 64 20 136/84 96 Room Air Intake & Output 05/11 1600 05/11 0800 05/11 0000 05/10 1600 05/10 0805/10 0000 Intake Total 360 023 639 9380 Output Total 400 600 175 300 Balance 360 -130 100 825 -300 Intake, IV 30 700 1000 Intake, Oral 360 240 0 Number 200 1 0 Bowel Movements Output, Urine 400 600 175 300 Patient 154 lb Weight Physical Exam: GEN: NAD CARD: S1S2 RRR PULM: no audible wheeze ABD: midline w maximino: CDI, old ostomy site with maximino and central wick w dark bloody drainage, wick changed, tolerated well, redressed. superficial skin blister R abdomen (tape) EXT: calves soft nt, ALPS on bl Current Medications: Current Medications Sig/Nhan Start time Last Medication Dose Route Stop Time Status Admin Dextrose/Sodium 1,000 ML Q8H 05/08 184 DC 05/10 Chloride IV 1219 Famotidine 20 MG BID 05/08 IV 2107 Heparin Sodium 5,000 UNIT Q8 05/09 0605/11 (Porcine) SC 0533 Hydromorphone HCl 0.4 MG Q3P PRN 05/08 2030 DC IV Hydromorphone HCl 0.6 MG Q3P PRN 05/08 2030 DC IV Hydromorphone HCl 1 MG Q2-3 HRS NEEDED.. 05/08 IV 0533 Ketorolac 30 MG Q6-PRN PRN 05/08 2200 AC 05/10 Tromethamine IV 194 Ondansetron HCl 4 MG Q6P PRN 05/08 184 AC IV Oxycodone/ 1 TAB Q4P PRN 05/11 0815 AC Acetaminophen PO Oxycodone/ 2 TAB Q4P PRN 05/11 0815 AC Acetaminophen PO Results Last 48 Hours of Labs: Laboratory Tests 05/11 05/10 0650 0738 Chemistry Sodium Pending Cancelled Potassium Pending Cancelled Chloride Pending Cancelled Carbon Dioxide Pending Cancelled Anion Gap Pending Cancelled BUN Pending Cancelled Creatinine Pending Cancelled BUN/Creatinine Ratio Pending Cancelled Hematology CBC w Diff Pending Cancelled WBC Pending Cancelled RBC Pending Cancelled Hgb Pending Cancelled Hct Pending Cancelled MCV Pending Cancelled MCH Pending Cancelled RDW Pending Cancelled Plt Count Pending Cancelled MPV Pending Cancelled PUBS MCHC Pending Cancelled Assessment/Plan Assessment/Plan A: 47M POD3 sp colostomy reversal, slow return bowel fxn w dark bloody bms, otherwise stable. P: - old blood per rectum, likey from surgery- hemodynamically stable, will check Hct, monitor closely - clr liquids- ?advance later if tolerating - prn pain meds, change to PO - labs pdg - dvt ppx, oob, ambulate - will dw attending Core Measures/Miscellaneous Venous Thromboembolism VTE Risk Factors: Age > 40, Surgery VTE Contraindications: No Contraindications VTE Diagnosis: No VTE Type: NONE VTE Confirmed by (Test): NONE Beta Jennifer Is Beta Jennifer a Home Med? No Antibiotics Is Patient on Antibiotics? Yes If Yes: prophylaxis
[2017-05-11 08:33] LABS: ABSOLUTE BASOPHIL COUNT 0 /CUMM (0.0-0.2); ABSOLUTE EOSINOPHIL COUNT 0.2 /CUMM (0.0-0.7); ABSOLUTE GRANULOCYTE CT 3.7 /CUMM (1.4-6.5); ABSOLUTE LYMPH COUNT 1.3 /CUMM (1.2-3.4); ABSOLUTE MONOCYTE COUNT 0.2 /CUMM (0.10-0.60); BASOPHIL % 0.5 % (0.0-2.0); EOSINOPHIL % 3.1 % (0-5); GRANULOCYTE % 68.9 % (42.2-75.2); HEMATOCRIT 32.2 % (42-52); MEAN CORPUSCULAR HGB 29.9 PG (27.0-31.0); MEAN CORPUSCULAR HGB CONC 34.4 G/DL (33.0-37.0); MEAN CORPUSCULAR VOLUME 86.9 FL (80.0-94.0); MEAN PLATELET VOLUME 10.3 FL (7.4-10.4); PLATELET COUNT 114 /CUMM (130-400); RBC DISTRIBUTION WIDTH 13.3 % (11.5-14.5); WHITE BLOOD CELL COUNT 5.4 /CUMM (4.8-10.8)
[2017-05-11 14:27] VITALS: BP 120/80
[2017-05-11 23:08] VITALS: BP 132/84
[2017-05-12 06:48] VITALS: BP 112/78
[2017-05-12 08:41] LABS: ABSOLUTE BASOPHIL COUNT 0 /CUMM (0.0-0.2); ABSOLUTE EOSINOPHIL COUNT 0.2 /CUMM (0.0-0.7); ABSOLUTE GRANULOCYTE CT 2.5 /CUMM (1.4-6.5); ABSOLUTE LYMPH COUNT 1.2 /CUMM (1.2-3.4); ABSOLUTE MONOCYTE COUNT 0.2 /CUMM (0.10-0.60); BASOPHIL % 0.6 % (0.0-2.0); GRANULOCYTE % 61.4 % (42.2-75.2); HEMATOCRIT 32.8 % (42-52); MEAN CORPUSCULAR HGB 29.9 PG (27.0-31.0); MEAN CORPUSCULAR HGB CONC 34.6 G/DL (33.0-37.0); MEAN CORPUSCULAR VOLUME 86.6 FL (80.0-94.0); MEAN PLATELET VOLUME 9.9 FL (7.4-10.4); PLATELET COUNT 125 /CUMM (130-400); RBC DISTRIBUTION WIDTH 13.5 % (11.5-14.5); RED BLOOD CELL CT 3.78 /CUMM (4.70-6.10); WHITE BLOOD CELL COUNT 4.1 /CUMM (4.8-10.8)
--- NOTE | 2017-05-12 10:45 | PN- General Surgery ---
See Addendum Subjective Subjective: Tolerating clears. Passing flatus. No bm yet. Pain controlled. Walking well. No dizziness. No shortness of breath. Objective Vital Signs and I&Os Vital Signs Date Time Temp Pulse Resp B/P B/P Pulse O2 O2 Flow FiO2 Mean Ox Delivery Rate 05/12 0648 97.9 62 16 112/78 98 Room Air 05/12 0000 98 Room Air 05/11 2308 98.2 58 20 132/84 98 Room Air 05/11 1427 98.2 56 20 120/80 99 Room Air Intake & Output 05/12 1600 05/12 0800 05/12 0000 05/11 1600 05/11 0800 05/11 0000 Intake Total 200 120 100 360 270 Output Total 400 Balance 200 120 100 360 -130 Intake, IV 0 30 Intake, Oral 200 120 100 360 240 Number 1 100 200 Bowel Movements Output, Urine 400 Physical Exam: General - alert & oriented x 3. comfortable. no acute distress. Lungs - clear bilaterally. no w/r/r. Cardiac - s1s2. reg. Abdomen - soft. midline incision well approximated with maximino. skin blister noted. packing removed from prior ostomy site. no erythema or exudates. no packing replaced - just dry guaze. Extremities - warm bilaterally. no c/c/e. calves soft and nontender b/l. Current Medications: Current Medications Sig/Nhan Start time Last Medication Dose Route Stop Time Status Admin Famotidine 20 MG BID 05/08 IV 0905 Heparin Sodium 5,000 UNIT Q8 05/09 0600 05/11 (Porcine) SC 1412 Hydromorphone HCl 1 MG Q2-3 HRS NEEDED.. 05/08 2030 05/11 IV 0817 Ketorolac 30 MG Q6-PRN PRN 05/08 22005/11 Tromethamine IV 2131 Ondansetron HCl 4 MG Q6P PRN 05/08 1845 AC IV Oxycodone/ 1 TAB Q4P PRN 05/11 0815 AC Acetaminophen PO Oxycodone/ 2 TAB Q4P PRN 05/11 0815 AC 05/12 Acetaminophen PO 0905 Results Last 48 Hours of Labs: Laboratory Tests 05/12 05/11 0800 0650 Chemistry Sodium (137 - 145 mmol/L) 136 L 140 Potassium (3.5 - 5.1 mmol/L) 3.8 3.8 Chloride (98 - 107 mmol/L) 99 105 Carbon Dioxide (22 - 30 mmol/L) 28 27 Anion Gap (5 - 16) 8 7 BUN (9 - 20 mg/dL) 7 L 6 L Creatinine (0.7 - 1.2 mg/dL) 0.8 0.8 Estimated GFR (>60 ml/min) > 60 > 60 BUN/Creatinine Ratio (7 - 25 %) 8.8 7.5 Hematology CBC w Diff NO MAN DIFF REQ NO MAN DIFF REQ WBC (4.8 - 10.8 /CUMM) 4.1 L 5.4 RBC (4.70 - 6.10 /CUMM) 3.78 L 3.70 L Hgb (14.0 - 18.0 G/DL) 11.3 L 11.1 L Hct (42 - 52 %) 32.8 L 32.2 L MCV (80.0 - 94.0 FL) 86.6 86.9 MCH (27.0 - 31.0 PG) 29.9 29.9 RDW (11.5 - 14.5 %) 13.5 13.3 Plt Count (130 - 400 /CUMM) 125 L 114 L MPV (7.4 - 10.4 FL) 9.9 10.3 Gran % (42.2 - 75.2 %) 61.4 68.9 Lymphocytes % (20.5 - 51.1 %) 28.4 23.1 Monocytes % (1.7 - 9.3 %) 4.6 4.4 Eosinophils % (0 - 5 %) 5.0 3.1 Basophils % (0.0 - 2.0 %) 0.6 0.5 Absolute Granulocytes (1.4 - 6.5 /CUMM) 2.5 3.7 Absolute Lymphocytes (1.2 - 3.4 /CUMM) 1.2 1.3 Absolute Monocytes (0.10 - 0.60 /CUMM) 0.2 0.2 Absolute Eosinophils (0.0 - 0.7 /CUMM) 0.2 0.2 Absolute Basophils (0.0 - 0.2 /CUMM) 0 0 PUBS MCHC (33.0 - 37.0 G/DL) 34.6 34.4 Assessment/Plan Assessment/Plan This 47 year old is POD#4 s/p reversal of colostomy Rodrigues's procedure for hx perforated diverticulitis resulting in hartmans tolerating clears. passing flatus. ?try food pain controlled with percocet and toradol blister covered with baci / xeroform / telfa / tegaderm old ostomy site dressing changed. packing removed oob/ambulating well he is refusing heparin sc labs stable. no need to redraw tomorrow will d/w Core Measures/Miscellaneous Venous Thromboembolism VTE Risk Factors: Age > 40, Surgery VTE Contraindications: No Contraindications VTE Diagnosis: No VTE Type: NONE VTE Confirmed by (Test): NONE Beta Jennifer Is Beta Jennifer a Home Med? No Antibiotics Is Patient on Antibiotics? Yes If Yes: prophylaxis
[2017-05-12] MEDS ORDERED: PERCOCET 5-3251 EACH PO (11:25)
[2017-05-12] MEDS ORDERED: COLACE100 M1 PO (11:25)
--- NOTE | 2017-05-12 11:31 | Patient Discharge Instructions ---
Discharge Instructions General Discharge Information You were seen/treated for: Colostomy after Rodrigues's procedure You had these procedures: Surgery Date: 05/08/17 Name of Procedure: Reversal of colostomy Rodrigues's procedure Watch for these problems: fever>101.3, increased pain, redness/swelling/drainage Call Surgeon to remove: [place] No bath, but you may shower: Yes Other wound care: dry guaze dressing change daily over old stoma site Diet Continue normal diet: Yes Recommended Diet: Regular Activity Full Activity/No Limits: No Activity Self Limited: Yes Pounds, do NOT lift more than: 10 Other activity limits: no heavy lifting. no strenuous activity. Acute Coronary Syndrome Inclusion Criteria At DC or during hospital stay patient has or had the following: ACS DIAGNOSIS No Discharge Core Measures Meds if any: Prescribed or Continued at Discharge Meds if any: NOT Prescribed or Continued at Discharge Congestive Heart Failure Inclusion Criteria At DC or during hospital stay patient has or had the following: CHF DIAGNOSIS No Discharge Core Measures Meds if any: Prescribed or Continued at Discharge Meds if any: NOT Prescribed or Continued at Discharge Cerebrovascular accident Inclusion Criteria At DC or during hospital stay patient has or had the following: CVA/TIA Diagnosis No Discharge Core Measures Meds if any: Prescribed or Continued at Discharge Meds if any: NOT Prescribed or Continued at Discharge Venous thromboembolism Inclusion Criteria VTE Diagnosis No VTE Type NONE VTE Confirmed by (Test) NONE Discharge Core Measures - Per Current guidelines, there needs to be overlap - treatment for the first 5 days of Warfarin therapy. - If discharged on Warfarin prior to 5 days of - overlap therapy, the patient will need to be - assessed for post discharge needs including - *Post discharge parental anticoagulation - *Warfarin and/or parental anticoagulation education - *Follow up date to check INR post discharge Meds if any: Prescribed or Continued at Discharge Note: Overlap Therapy is Warfarin and Anticoagulant Meds if any: NOT Prescribed or Continued at Discharge
[2017-05-12] MEDS ORDERED: VALSARTAN-HCTZ1 EAC2 PO (14:27)
== END 2017-05-12 15:00 | DRG 331 ==
LOC: SDA 02:16 → 2NA 02:16 → ENRESERV 17:49 → ENTRNSPT 18:16 → 2NA 18:32 → CMPTRNSPT 18:46 → ENPENDDIS 05-12 11:31 → 2NA 05-12 15:00
PROVIDERS: Physician Assistant; Physician Assistant Surgical; ADMIT Surgery
PROC: 0DBE0ZZ Excision of Large Intestine, Open Approach (ICD-10-PCS; principal; 2017-05-08)
DX: Z43.3 Encounter for attention to colostomy (principal); K64.8 Other hemorrhoids
CPT/HCPCS: 2NAP; 36415; 82436; 87086; C9399; J0131; J1644; J1885; J2405; J7042